=== PATIENT | male | born 1940 | race Caucasian/White ===

== ENCOUNTER 2017-05-21 17:03 | Inpatient (IN) ==
[2017-05-21] MEDS ORDERED: NS 1,000 ML IV ONE ×2 (17:12→23:19)
[2017-05-21] MEDS ORDERED: DIPHTHERIA/TETANUS ADULT IM ONE (17:23)
[2017-05-21] MEDS ORDERED: MORPHINE IV ONE (17:24)
[2017-05-21] MEDS ORDERED: ZOFRAN IV ONE (17:24)
--- NOTE | 2017-05-21 18:01 | Diag Imaging Result Doc PS360 ---
EXAM: HIP 1 VIEW LEFT - 05/21/2017 HISTORY: fall TECHNIQUE: AP left hip one view COMPARISON: 10/22/2016 FINDINGS: There is a total hip prosthesis. The femoral component of the prosthesis is superior laterally dislocated from the acetabular component. There is no fracture identified. IMPRESSION: Superior lateral dislocation of femoral component of left total hip prosthesis from the acetabular component. Electronically signed by Sekou Chavez 05/21/2017 5:59 PM
--- NOTE | 2017-05-21 18:04 | Diag Imaging Result Doc PS360 ---
EXAM: KNEE 3 VIEWS RIGHT - 05/21/2017 HISTORY: fall pain right knee TECHNIQUE: Right knee three views COMPARISON: None. FINDINGS: There are moderate osteoarthritic changes. There is no fracture or dislocation identified. There is apparent thickening of the suprapatellar bursa suggestive of joint effusion. There are extensive atherosclerotic calcifications noted. IMPRESSION: Moderate osteoarthritic changes. Apparent joint effusion. No evidence of fracture or dislocation. Extensive atherosclerotic calcifications noted. Electronically signed by Sekou Chavez 05/21/2017 6:01 PM
--- NOTE | 2017-05-21 18:10 | PROVIDER DOCUMENTATION ---
This chart was entered by Kerry Hoover Scribe, acting as scribe for Vandana Meadows MD. HPI-Musculoskeletal Pain/Inj <Arthur Duffy - Last Filed: 06/09/17 19:01> - GENERAL Source: patient, EMS - HX OF PRESENT ILLNESS-MUSKULOSKELTAL Quality of Pain: reports: aching, cramping Severity in ED: severe Onset/Duration: other (AROUND [id number] THIS AM) Timing: still present Modifying Factors: improves with: immobilization, movement Any recent injury?: Yes (FALL) Locality of Occurance: Home Similar Symptoms Previously?: Yes (HIP DISLOCATION IN THE PAST) Recently seen or treated by another doctor?: No - FALL INJURY Location of Pain/Injury: reports: head, face, chest, upper extremity, pelvis ( LEFT SIDE) Pain Radiation: reports: no radiation Reason for Fall: reports: other (FELT HIP POP OUT AND FELL) Symptoms prior to fall:: reports: none Loss of Consciousness: no loss of consciousness Injury Associated Symptoms: reports: arm pain (RIGHT), chest pain (RIGHT), joint pain (LEFT HIP, RIGHT KNEE), snap/crack/pop sensation, unable to bear weight. denies: back/neck pain, diaphoresis - TRUNK INJURY Location of Injury(s)/Pain: reports: chest, ribs (RIGHT SIDE) Context / Method of Injury: reports: fall, recent trauma history Associated Symptoms: reports: chest pain. denies: shortness of breath, pain with breathing - HIP/PELVIS PAIN/INJURY Hip Pain Location: reports: hip (L) Pain Radiation: reports: no radiation Context / Method of Injury: reports: fall Associated Symptoms: reports: sensory/motor loss - LOWER EXTREMITY PAIN/INJURY Lower Extremities Pain: hip: left, knee: right Context / Method of Injury: reports: fell Associated Symptoms: reports: loss of bowel control, sensory/motor loss - UPPER EXTREMITY PAIN/INJURY Extremities Pain Location: shoulder: right, forearm: right, wrist: right Context / Method of Injury: reports: fell Associated Symptoms: reports: muscle spasms <Vandana Meadows - Last Filed: 06/11/17 10:49> - GENERAL Chief Complaint: Fall Stated Complaint: fall Time Seen by Provider: 05/21/17 17:09 - HX OF PRESENT ILLNESS-MUSKULOSKELTAL Nature of Presenting Problem: PT IS A 76YOM PRESENTING TO THE ED C/O FALL. PT ARRIVES WITH EMS AFTER FAMILY CAME TO VISIT AND WAS UNABLE TO GET IN INITIALLY. FAMILY BROKE IN AND FOUND PT LAYING ION FLOOR ON HIS RIGHT SIDE. ACCORDING TO PT HE GOT UP TO USE RESTROOM AROUND [id number] THIS AM AND FELT HIS LEFT HIP POP OUT AND HE FELL LANDING AND APPARENTLY NOT ABLE TO MOVE OFF RIGHT SIDE. PT DENIES LOC BUT HE EDEMA, ECHYMOSIS, ABRASION TO THE RIGHT SIDE OF HIS HEAD AND FACE, HE HAS SOME EDEMA WITH A SMALL SUBCONJUNCTIVAL HEMORRHAGE ON HIS RIGHT EYE, RIGHT ANTERIOR CHEST JUST ABOVE HIS NIPPLE HE HAS A LARGE SKIN TEAR WITH ECCHYMOSIS UNDER LEFT BREAST AND IN RIGHT AUXILIARY AREA, PT HAS SWELLING ECCHYMOSIS AND SKIN BREAKDOWN FROM MID FOREARM ON THE RIGHT SIDE, HE HAS A SMALL SKIN TEAR ON LATERAL RIGHT KNEE WELL. PTS LEFT HIP IS INTERNALLY ROTATED AND MILDLY SHORTENED. PT HAS DRY STOOL FROM NIPPLE LINE DOWN. PT REFUSED PAIN MEDICATION AT THIS TIME EVEN AFTER BEING NOTIFIED OF US HAVING TO MOVE HIM SEVERAL TIMES. PT IS HYPOTENSIVE AND TACHYCARDIA AT TIME OF EVALUATION, PT DENIES ANY SOB OR OTHER COMPLAINTS AT THIS TIME (Kerry Hoover) PT IS A 76YOM PRESENTING TO THE ED C/O FALL. PT ARRIVES WITH EMS AFTER FAMILY CAME TO VISIT AND WAS UNABLE TO GET IN INITIALLY. FAMILY BROKE IN AND FOUND PT LAYING ION FLOOR ON HIS RIGHT SIDE. ACCORDING TO PT HE GOT UP TO USE RESTROOM AROUND [id number] THIS AM AND FELT HIS LEFT HIP POP OUT AND HE FELL LANDING AND APPARENTLY NOT ABLE TO MOVE OFF RIGHT SIDE. PT DENIES LOC BUT HE EDEMA, ECHYMOSIS, ABRASION TO THE RIGHT SIDE OF HIS HEAD AND FACE, HE HAS SOME EDEMA WITH A SMALL SUBCONJUNCTIVAL HEMORRHAGE ON HIS RIGHT EYE, RIGHT ANTERIOR CHEST JUST ABOVE HIS NIPPLE HE HAS A LARGE SKIN TEAR WITH ECCHYMOSIS UNDER LEFT BREAST AND IN RIGHT AUXILIARY AREA, PT HAS SWELLING ECCHYMOSIS AND SKIN BREAKDOWN FROM MID FOREARM ON THE RIGHT SIDE, HE HAS A SMALL SKIN TEAR ON LATERAL RIGHT KNEE WELL. PTS LEFT HIP IS INTERNALLY ROTATED AND MILDLY SHORTENED. PT HAS DRY STOOL FROM NIPPLE LINE DOWN. PT REFUSED PAIN MEDICATION AT THIS TIME EVEN AFTER BEING NOTIFIED OF US HAVING TO MOVE HIM SEVERAL TIMES. PT IS HYPOTENSIVE AND TACHYCARDIA AT TIME OF EVALUATION, PT DENIES ANY SOB OR OTHER COMPLAINTS AT THIS TIME (Vandana Meadows) Review of Systems - Adult - REVIEW OF SYSTEMS - ADULT Constitutional: reports: no symptoms reported Eyes: reports: no symptoms reported Ears, Nose, Mouth & Throat: reports: no symptoms reported Cardiovascular: reports: no symptoms reported Respiratory: reports: no symptoms reported Gastrointestinal: reports: no symptoms reported Genitourinary: reports: no symptoms reported Musculoskeletal: reports: see HPI, joint pain (LEFT HIP, RIGHT CHEST, RIBS, MID RIGHT FOREARM WTRIST AND HAND, RIGHT KNEE), joint swelling, muscle aches, muscle weakness. denies: bone pain, back pain, neck pain Integumentary: reports: no symptoms reported Neurological: reports: no symptoms reported Psychiatric: reports: no symptoms reported Endocrine: reports: no symptoms reported Hematologic/Lymphatic: reports: no symptoms reported Allergic/Immunologic: reports: no symptoms reported All Other Systems: Reviewed and Negative <Vandana Meadows - Last Filed: 06/11/17 10:49> Past History - Adult - PAST MEDICAL HISTORY-ADULT Review of Records: reports: Old Records Reviewed, Nursing Assessment Review, Medications Reviewed, Social history reviewed & non-contributory. Major Childhood Illnesses: reports: denies history Cardiovascular: reports: HTN Respiratory: reports: denies history Gastrointestinal: reports: denies history Obstetrical/Gynecological: reports: denies history Genitourinary: reports: denies history Musculoskeletal: reports: denies history Neurological: reports: CVA Endocrine/Immune: reports: denies history Other Conditions: reports: denies history - PRIOR SURGERIES/PROCEDURES Surgical/Procedure History: reports: cholecystectomy, other (total hip replacement) - IMMUNIZATION STATUS Childhood Immunizations: See Nurse Assessment Flu Vaccine: See Nurse Assessment - FAMILY HISTORY Family History: reviewed, not pertinent - SOCIAL HISTORY Smoking: quit greater than 1 year Substance Use: none/never, alcohol Alcohol Use Frequency: 3-4 times a week Number of drinks per typical drinking period:: 5-10 drinks Living Situation: alone <Vandana Meadows - Last Filed: 06/11/17 10:49> Physical Exam-Injury Related - Physical Exam-Injury Related Initial Vital Signs Reviewed: Yes General Appearance: alert, severe distress, anxious. negative: appears well Eyes: PERRL/EOMI, pink conjunctivae, subconjunctival hemorrhage (RIGHT EYE) Head, Ears, Nose, Mouth & Throat: normocephalic/atraumatic, moist mucous membranes, normal ENT inspection, TMs normal, pharynx normal Neck: non-tender, full range of motion, supple, normal inspection Respiratory: chest non-tender, lungs clear, normal breath sounds, no pleuratic chest pain, no respiratory distress, no accessory muscle use, increased rate Cardiovascular: normal peripheral pulses, no gallop, no JVD, no murmur, tachycardia, other (RIGHT LOWER EXT EDEMA 2+ EDEMA). negative: regular rate, rhythm, no edema Abdominal Exam: normal bowel sounds, non tender, soft, no organomegaly, no pulsatile mass, other (MULTIPLE WELL HEALED SURGICAL SCARS FROM PREVIOUS SURGERIES) Back Exam: negative: normal inspection, no CVA tenderness, no vertebral tenderness Extremity: other (LEFT LE SHORTENED AND INTERNALLY ROTATED). negative: normal range of motion, non-tender, normal gait, normal inspection, no pedal edema Integumentary: warm/dry, other (MULITPLE AREAS OF TISSUE BREAKDOWN, UPPER AND LOWER EXT ON RIGHT SIDE AND RIGHT CHEST) Neurologic: grossly normal Psych/Mental Status: normal mood/affect, normal thought content, normal thought process, oriented x 3 - Glascow Coma Score Best Eye Response ([place]): (4) open spontaneously Best Verbal Response ([place]): (5) oriented Best Motor Response ([place]): (6) obeys commands <Vandana Meadows - Last Filed: 06/11/17 10:49> Progress - PLAN OF CARE/RESULTS Result Diagrams: 06/07/17 04:00 06/07/17 04:00 - XRAY 1 XRAY Study: Hip Impression: Abnormal, See EMR Report (Hip dislocation) <Arthur Duffy - Last Filed: 06/09/17 19:01> - PLAN OF CARE/RESULTS Result Diagrams: 06/07/17 04:00 06/07/17 04:00 - CHANGE OF SHIFT REPORT (ED Provider) Report Given and Care Transferred to:: DR DUFFY Time of Transfer: 18:09 (DR MEADOWS [facility]) Items Pending: Labs, XRAY Results, CT/MRI Results, Pain Control <Vandana Meadows - Last Filed: 06/11/17 10:49> - PLAN OF CARE/RESULTS Progress/Plan/Lab Results: Orders Category Date Time Status Admit - [facility] - [facility] Routine AdmDCTranf 05/21/17 23:19 Ordered Activity - Strict Bedrest ORDERED Care 05/21/17 23:19 Active Apply C-Collar DIRECTED Care 05/21/17 20:13 Completed Apply Mechanical Device [QM] ORDERED Care 05/21/17 23:19 Completed Borges's Traction Placement ONCE Care 05/21/17 20:09 Completed IV Insertion ORDERED Care 05/21/17 17:12 Completed Intake and Output-Strict ORDERED Care 05/21/17 23:19 Active Misc. NRSG Communication Order DIRECTED Care 05/21/17 23:19 Completed Nursing- MD Consult Request ROUTINE Care 05/21/17 23:19 Completed Z-Document. for Tele Applied ORDERED Care 05/21/17 23:19 Completed Physician/Provider Consults Routine Cons 05/21/17 23:19 Ordered Heart Healthy Diet Diet 05/21/17 21:44 Completed NPO Diet 05/22/17 00:01 Completed HEAD/C-SPINE W/O CONTRAST [CT] Stat Exams 05/21/17 17:12 Completed HIP 1 VIEW LEFT [RAD] Stat Exams 05/21/17 17:41 Completed KNEE 3 VIEWS RIGHT [RAD] Stat Exams 05/21/17 17:22 Completed THORAX/ABDOMEN/PELVIS [CT] Stat Exams 05/21/17 17:12 Completed CBC WITH DIFF [HEME] Stat Lab 05/21/17 18:38 Completed CK PROFILE [SP CHEM] Q8H Lab 05/22/17 06:45 Completed CK PROFILE [SP CHEM] Q8H Lab 05/22/17 16:58 Completed CK TOTAL [CHEM] Stat Lab 05/21/17 18:38 Completed COMPREHENSIVE METABOLIC PANEL [CHEM] Stat Lab 05/21/17 18:38 Completed ETOH [ALCOHOL BLOOD] Stat Lab 05/21/17 18:38 Completed FOLATE Stat Lab 05/21/17 18:38 Completed I-STAT IONIZED CALCIUM [RESP] Routine Lab 05/21/17 21:25 Completed MAGNESIUM [CHEM] Stat Lab 05/21/17 18:38 Completed PHOSPHORUS [CHEM] Stat Lab 05/21/17 18:38 Completed POTASSIUM [CHEM] Timed Lab 05/22/17 00:11 Completed TROPONIN T Q8H Lab 05/22/17 06:45 Completed TROPONIN T Q8H Lab 05/22/17 16:58 Completed TROPONIN T Stat Lab 05/21/17 18:38 Completed VITAMIN B1 [AMADOR] Stat Lab 05/21/17 00:11 Completed VITAMIN B12 Stat Lab 05/21/17 18:38 Completed 0.9% Sodium Chloride Inj [Ns] 1,000 ml Med 05/21/17 23:19 Discontinued IV 70 mls/hr 0.9% Sodium Chloride Inj [Ns] 1,000 ml Med 05/21/17 17:12 Discontinued IV 999 mls/hr Acetaminophen [Tylenol] Med 05/21/17 23:19 Discontinued 650 mg PO Q6H PRN PRN Albuterol 2.5MG/Ipratrop 0.5MG [Duoneb (A & A)] Med 05/21/17 23:19 Discontinued 3 ml INH Q2H PRN PRN Calcium Gluconate 2 gm Med 05/21/17 23:19 Discontinued 0.9% Sodium Chloride Inj [Ns] 100 ml IV NOW Diphtheria/Tetanus Adult Med 05/21/17 17:23 Discontinued 0.5 ml IM .ONCE ONE Folic Acid 1 mg Med 05/21/17 23:19 Discontinued 0.9% Sodium Chloride Inj [Ns] 50 ml IV NOW Lorazepam [Ativan] Med 05/21/17 23:19 Discontinued 1 - 2 mg IV Q2-4H PRN PRN Methyl-B12/l-Mefolate/B6 Phos [Metanx] Med 05/22/17 09:00 Discontinued 1 each PO DAILY Methyl-B12/l-Mefolate/B6 Phos [Metanx] Med 05/21/17 23:19 Discontinued 1 each PO NOW ONE Morphine Med 05/21/17 23:19 Discontinued 2 mg IV Q3H PRN PRN Morphine Med 05/21/17 17:24 Discontinued 4 mg IV NOW ONE Naph,Mb-Db/K pH,Mbdb [Neutra-Phos] Med 05/21/17 23:19 Discontinued 1 each PO NOW ONE Ns + KCl 40 Meq 1,000 ml Med 05/21/17 20:05 Discontinued IV 250 mls/hr Omeprazole [Prilosec] Med 05/22/17 07:00 Discontinued 40 mg PO DAILY@0700 Ondansetron [Zofran] Med 05/21/17 17:24 Discontinued 4 mg IV NOW ONE Ondansetron [Zofran] Med 05/21/17 23:19 Discontinued 4 mg IV Q4H PRN PRN Phenobarbital Med 05/21/17 23:19 Discontinued 130 mg IV Q4H PRN PRN Potassium Chloride E.r. [Klor-Con] Med 05/21/17 19:58 Discontinued 60 meq PO NOW ONE Thiamine 100 mg Med 05/21/17 21:28 Discontinued 0.9% Sodium Chloride Inj [Ns] 50 ml IV NOW Aerosol Treatments Routine Oth 05/21/17 23:19 Completed Telemetry [OM.EQ] Routine Oth 05/21/17 23:19 Active EKG [EKG] Routine Ther 05/22/17 08:00 Completed EKG [EKG] Stat Ther 05/21/17 19:50 Draft Transfer/Admit Order [TRANSFER] Routine Transfer 05/21/17 20:26 Completed Departure - Departure Date of Disposition Decision: 05/21/17 Time of Disposition Decision: 22:00 Certified Medical Emergency: Emergent - Critical Care Note This patient required my direct & personal management of CC.: No <Arthur Duffy - Last Filed: 06/09/17 19:01> - Departure Date of Disposition Decision: 05/21/17 Time of Disposition Decision: 22:01 Certified Medical Emergency: Emergent - Critical Care Note This patient required my direct & personal management of CC.: Yes Total Time (mins): 35 Critical Care Statement: This patient required my direct personal management to treat or rule out processes, the absence of which, could potentiallly result in sudden, clinically significant life or limb threatening deterioration. <Vandana Meadows - Last Filed: 06/11/17 10:49> - Departure DIAGNOSIS: Hip dislocation, left Qualifiers: Encounter type: initial encounter Qualified Code(s): S73.005A - Unspecified dislocation of left hip, initial encounter Disposition: ADMITTED INPATIENT 09 Condition: This chart was documented by the indicated scribe, (Kerry Hoover Scribe) and accurately reflects the services I performed and decisions made by me, Vandana Meadows MD, as attested by the provider's signature.
[2017-05-21 18:52] LABS: HEMATOCRIT 25.4 % (42.0-52.0); HEMOGLOBIN 8.4 g/dL (14.0-18.0); IMM GRAN# 0.02 X1000 (0.0-0.04); IMM GRAN% 0.2 % (0.0-0.5); LYMPH# 0.12 X1000 (1.2-3.4); LYMPH% 1.5 % (20.5-51.1); MANUAL DIFF NEEDED? YES; MCH 29.7 PG (27-31); MCHC 33.1 g/dL (33-37); MCV 89.8 FL (81-99); MONO# 0.41 X1000 (0.11-0.59); MONO% 5.1 % (1.7-9.3); MPV 9.8 FL (7.4-10.4); NEUT% 93.2 % (42.2-75.2); PLT 90 X1000 (130-400); RBC 2.83 XMIL (4.7-6.1)
[2017-05-21 18:59] LABS: LYMPHS 2 % (21-51)
[2017-05-21 19:26] LABS: AGAP 11; ALBUMIN 1.9 g/dL (3.5-5.0); ALKALINE PHOSPHATASE 31 U/L (32-122); BUN 12 mg/dL (8-22); CHLORIDE 109 mmol/L (98-107); COSMO 274; GOT 82 U/L (10-34); GPT 24 U/L (10-44); SODIUM 138 mmol/L (136-145); TCO2 18 mmol/L (25-35); TOTAL BILIRUBIN 0.93 mg/dL (0.20-1.00); TOTAL PROTEIN 4.3 g/dL (6.3-8.3)
[2017-05-21 19:48] LABS: CALCIUM 5.3 mg/dL (8.8-10.2); POTASSIUM 2.1 mmol/L (3.5-5.1)
[2017-05-21] MEDS ORDERED: KLOR-CON PO ONE (19:58)
[2017-05-21] MEDS ORDERED: NS + KCL 40 MEQ 1,000 ML IV ONE (20:05)
[2017-05-21 20:49] LABS: MAGNESIUM 1.2 mg/dL (1.5-2.7)
--- NOTE | 2017-05-21 21:14 | Diag Imaging Result Doc PS360 ---
EXAM: HEAD/C-SPINE W/O CONTRAST - 05/21/2017 HISTORY: fall 14 hours TECHNIQUE: Dose reduction protocol COMPARISON: None. FINDINGS: CT head: There is some generalized atrophic changes. There is encephalomalacia at the right frontal lobe and at the right temporal occipital junction, compatible with old infarcts. There is a chronic appearing lacunar infarct on the left extends from the periventricular region to the anterior basal ganglia. There is no acute-appearing infarct is identified, but acute infarcts may not be immediately visible. There is no evidence of intracranial hemorrhage, mass effect, or midline shift. There is mild subcutaneous soft tissue swelling at the right anterior scalp. There is no skull fracture. CT cervical spine: There are severe degenerative changes at atlantoaxial articulation. There is severe multilevel degenerative disc and degenerative facet disease. There is associated moderate degenerative spinal stenosis at C4-5 and C5-6, there is mild degenerative spinal stenosis at C6-7. There is 2.4 mm anterolisthesis at C2-C3 which likely relates to the degenerative disease. This combines with central disc protrusion to produce mild to moderate spinal stenosis at C2-3. There is no other subluxation identified. There is no fracture identified. There is no precervical soft tissue swelling. IMPRESSION: CT head: Subcutaneous soft tissue swelling at right anterior scalp. No evidence of intracranial injury. Chronic appearing ischemic changes, with apparent old infarcts at the right frontal lobe and right temporal occipital junction. CT cervical spine: Severe multilevel cervical spine degenerative disease. Associated multilevel mild to moderate spinal stenosis. Associated 2.4 mm anterolisthesis at C2-3. No evidence of cervical spine fracture. Electronically signed by Sekou Chavez 05/21/2017 9:11 PM
[2017-05-21] MEDS ORDERED: THIAMINE 100 MG in NS 50 ML IV ONE (21:28)
--- NOTE | 2017-05-21 21:34 | Diag Imaging Result Doc PS360 ---
EXAM: THORAX/ABDOMEN/PELVIS - 05/21/2017 HISTORY: fall 14 hours on floor abrasion right chest TECHNIQUE: With intravenous contrast. Dose reduction protocol. COMPARISON: None. FINDINGS: There are some smooth deformities of bilateral ribs which are compatible with old fracture deformities. There is no discrete acute rib fracture identified. There are COPD/emphysematous changes. There is a medium right pleural effusion. The pleural fluid has somewhat lobulated inner margins and may be acute, subacute or possibly chronic. There are some ill-defined atelectasis and/or scarring in the right lung near the pleural fluid. The left lung appears grossly clear. There is no pneumothorax identified. There is no mediastinal hematoma or pericardial fluid identified. There are some retained fluid in the esophagus and stomach. There are no substantial abnormalities of the liver, spleen, adrenal glands, or pancreas identified. The gallbladder surgically absent. There are small bilateral renal cysts. There is no evidence of renal injury. There is no hydronephrosis. There is a 3.8 x 3.7 cm infrarenal abdominal aortic aneurysm. There is mural thrombus within the aneurysm. There is a possible ulceration within the mural thrombus at the left anterior aspect of the aneurysm. There is no evidence of aneurysm leakage or rupture. There are extensive atherosclerotic calcifications noted. There is no evidence of bowel obstruction. There is no substantial bowel wall thickening identified. There is uncomplicated colonic diverticulosis. There is no free air or abscess identified. There is no peritoneal or retroperitoneal hematoma identified. There is no substantial free fluid identified. There is dislocated left hip prosthesis as seen on earlier left hip radiograph. IMPRESSION: Medium right pleural effusion, which may be acute, subacute, or chronic. Emphysematous changes. Ill-defined atelectasis and/or scarring in right lung near the pleural fluid. Some retained fluid in the esophagus and stomach. No other discrete injury to the thorax. 3.8 x 3.7 cm infrarenal abdominal aortic aneurysm. Mural thrombus in the aneurysm, possible ulceration extending into the mural thrombus at the left anterior aspect of the aneurysm. No evidence of aneurysm leakage or rupture. Status post cholecystectomy. Uncomplicated colonic diverticulosis. No evidence of injury to the abdomen or pelvis. There is dislocated left hip prosthesis is noted on earlier left hip radiograph. Electronically signed by Sekou Chavez 05/21/2017 9:32 PM
[2017-05-21] MEDS ORDERED: FOLIC ACID 1 MG in NS 50 ML IV ONE (23:19)
[2017-05-21] MEDS ORDERED: TYLENOL PO PRN (23:19)
[2017-05-21] MEDS ORDERED: ATIVAN IV PRN (23:19)
[2017-05-21] MEDS ORDERED: PHENOBARBITAL IV PRN (23:19)
[2017-05-21] MEDS ORDERED: DUONEB (A & A) INH PRN (23:19)
[2017-05-21] MEDS ORDERED: CALCIUM GLUCONATE 2 GM in NS 100 ML IV ONE (23:19)
[2017-05-21] MEDS ORDERED: METANX PO ONE (23:19)
[2017-05-21] MEDS ORDERED: ZOFRAN IV PRN (23:19)
[2017-05-21] MEDS ORDERED: NEUTRA-PHOS PO ONE (23:19)
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
[2017-05-22 01:56] LABS: CK INDEX 1.5 (0.0-2.5); CK PROFILE 2909 U/L (24-204); CK-MB 43.15 ng/mL (0.0-5.0); HDL 37 mg/dL (35-55); LDL 34 mg/dL; TRIGLYCERIDES 107 mg/dL (39-160); VLDL 21 mg/dL
[2017-05-22 02:07] LABS: INR 1.18; PROTIME 12.5 Seconds (9.2-11.7); PTT 31.7 Seconds (22.0-36.0)
[2017-05-22 04:06] LABS: URINE CULTURE NEEDED? NO; URINE MICRO REVIEW NEEDED? NO; URINE SOURCE CATH
[2017-05-22 04:08] LABS: BILIRUBIN URINE NEGATIVE (NEGATIVE); BLOOD URINE MODERATE (NEGATIVE); COLOR YELLOW; GLUCOSE URINE NEGATIVE (NEGATIVE); LEUKOCYTES URINE NEGATIVE (NEGATIVE); NITRITE URINE NEGATIVE (NEGATIVE); PROTEIN URINE 50 mg/dL (NEGATIVE); TURBIDITY URINE CLEAR (CLEAR); UROBILINOGEN URINE NORMAL (NORMAL)
[2017-05-22 04:09] LABS: UR EPITHELIAL CELLS <10 /HPF (<10); URINE BACTERIA NEGATIVE /HPF; URINE RBC <10 /HPF (<10); URINE WBC <10 /HPF (<10)
[2017-05-22 04:40] LABS: SP GRAVITY URINE > 1.030
[2017-05-22] MEDS: PRILOSEC PO SCH (06:12)
[2017-05-22 07:01] LABS: BASO% 0.1 % (0.0-0.8); HEMATOCRIT 34.2 % (42.0-52.0); HEMOGLOBIN 11.4 g/dL (14.0-18.0); IMM GRAN# 0.02 X1000 (0.0-0.04); IMM GRAN% 0.2 % (0.0-0.5); LYMPH# 0.35 X1000 (1.2-3.4); LYMPH% 2.9 % (20.5-51.1); MANUAL DIFF NEEDED? YES; MCH 30.2 PG (27-31); MCHC 33.3 g/dL (33-37); MCV 90.7 FL (81-99); MONO# 0.88 X1000 (0.11-0.59); MONO% 7.3 % (1.7-9.3); MPV 9.6 FL (7.4-10.4); NEUT% 89.5 % (42.2-75.2); PLT 132 X1000 (130-400); RBC 3.77 XMIL (4.7-6.1)
[2017-05-22 07:19] LABS: BANDS 6 % (0-1); LYMPHS 2 % (21-51); MONO 6 % (1-9)
[2017-05-22 07:29] LABS: AGAP 11; ALBUMIN 2.7 g/dL (3.5-5.0); ALKALINE PHOSPHATASE 41 U/L (32-122); BUN 22 mg/dL (8-22); CALCIUM 8.8 mg/dL (8.8-10.2); CHLORIDE 99 mmol/L (98-107); COSMO 269; GOT 103 U/L (10-34); GPT 35 U/L (10-44); IRON SATURATION 12 %; MAGNESIUM 2.2 mg/dL (1.5-2.7); POTASSIUM 5.1 mmol/L (3.5-5.1); SODIUM 133 mmol/L (136-145); TCO2 23 mmol/L (25-35); TIBC 204 ug/dL; TOTAL BILIRUBIN 0.92 mg/dL (0.20-1.00); TOTAL IRON 25 ug/dL (53-167); UNBOUND IRON 179 ug/dL (112-346)
[2017-05-22 07:44] LABS: CK INDEX 1.8 (0.0-2.5); CK-MB 29.91 ng/mL (0.0-5.0)
[2017-05-22] MEDS: MORPHINE IV PRN ×2 (07:48→10:45)
[2017-05-22] MEDS ORDERED: LOPRESSOR IV ONE (09:06)
[2017-05-22] MEDS: MYCOSTATIN POWDER TOP SCH (09:41)
[2017-05-22] MEDS: METANX PO SCH (09:43)
--- NOTE | 2017-05-22 12:29 | Diag Imaging Result Doc PS360 ---
EXAM: XRAY HIP UNILATERAL LT - 05/22/2017 HISTORY: dislocated l hip,re evaluate TECHNIQUE: Left hip two views COMPARISON: 05/21/2017 FINDINGS: There is a left total hip prosthesis again seen. There is superior lateral dislocation of the femoral component of the prosthesis relative to the acetabular component similar to the previous exam. There is no fracture identified. IMPRESSION: Superior lateral dislocation of femoral component of left total hip prosthesis similar to the previous exam. Electronically signed by Sekou Chavez 05/22/2017 12:27 PM
[2017-05-22] MEDS: LOPRESSOR PO SCH ×2 (13:52→21:32)
--- NOTE | 2017-05-22 15:24 | PROGRESS NOTE ---
DATE: 05/22/2017 SUBJECTIVE: The patient has no focal complaints. OBJECTIVE: Vital signs: Blood pressure 123/45, heart rate 67, respiratory rate 13, temperature 97.6 degrees, 100% on 4 L. Cardiovascular: Regular rate and rhythm. Pulmonary: Bilateral breath sounds. Clear to auscultation. GI: Soft, nontender, nondistended. Bowel sounds are positive. LABORATORY DATA: Sodium 133, BUN creatinine 22 and 1. Hematology: Hemoglobin and hematocrit are 11 and 34, white count, platelets of 132,000. Urine was unremarkable. PROBLEM LIST: 1. Left hip dislocation. Plan is for reduction today per Dr. Perez in the OR. 2. Congestive heart failure with elevated troponins. No chest pain. I think his EKGs were fairly unremarkable but he does have a distinct elevation in his troponin. However CK to MB fraction comparison is more consistent with rhabdomyolysis. Again echocardiogram has been obtained cardiology has evaluated the patient. I feel like this is not an ischemic event but related to rhabdomyolysis. Waiting other recommendations. 3. Anemia. We will continue to monitor. 4. Supraventricular tachycardia. He was on some Lopressor IV. He is not on anything for rate control. I am going to just leave him on some Lopressor p.o. and we will follow closely. We will follow up on his echo. 5. Disposition. Pending his clinical course. We will continue to follow. cc: Burak Gutierrez MD
[2017-05-22] MEDS ORDERED: DIPRIVAN 1% ONE (15:33)
--- NOTE | 2017-05-22 16:08 | CONSULTATION ---
DATE OF CONSULTATION: 05/22/2017 IMPRESSION: 1. Abnormal cardiac enzymes with significantly elevated CPK, normal CPK/MB index, and mild elevation in troponin. Clinical presentation of hip dislocation, fall and prolonged period of being down coupled with pattern of cardiac enzymes most consistent with skeletal muscle injury rather than cardiac event. 2. Transient atrial fibrillation with rapid ventricular rate. This spontaneously converted back to sinus rhythm after intravenous metoprolol. The patient has history of palpitations which raises concern that he has had paroxysms of atrial fibrillation in the past. That being a possibility, his CHADS2-VASc 2 score is significantly elevated raising concern regarding thromboembolic/stroke risk. 3. Hypertension. 4. Regular daily alcohol use of 6-8 beers daily. No signs of withdrawal. 5. Hyperlipidemia. 6. Chronic obstructive pulmonary disease. 7. Reported history of congestive heart failure. Echocardiography done today demonstrates normal left ventricular ejection fraction raising suspicion of possible cor pulmonale and/or diastolic left ventricular heart failure. Manifests no signs congestive heart failure presently. 8. Gastroesophageal reflux disease. 9. Previous left hip replacement for degenerative disease of the hip. RECOMMENDATIONS: 1. Optimal patient care would dictate relocating patient's hip without further delay. His perioperative cardiac risks related to this appears to be very acceptable. 2. Intravenous hydration to continue. 3. Metoprolol as needed if further atrial fibrillation. 4. Will give consideration to possible use of anticoagulation postoperatively. 5. Cessation of alcohol use discussed. HISTORY: This 76-year-old white male with past history of hypertension, palpitations, previous cerebrovascular accident, COPD, hyperlipidemia and regular daily alcohol use was admitted to emergency room after he was found down at home by family in the bathroom. He has history of left hip replacement and previously had to have left hip prosthesis relocated. He had gone to the bathroom and upon trying to get up from the toilet his left hip dislocated and he fell to the floor. He spent at least 12 hours on the floor. Family visiting from [place], [place] area happened to be in town for a and came by for a visit. The discovered him lying on the floor and brought him to the emergency room. He was found on the floor in a contorted position on his left side. There was no chest pain or syncope. Emergency room evaluation disclosed dislocated left hip prosthesis. He has been found on the floor in a contorted position on his right side. There was no syncope or chest pain. There were no associated palpitations. Emergency room evaluation disclosed dislocated left hip prosthesis. He demonstrated significantly elevated CPK, normal CPK index and mild elevation in troponin. Is admitted to the intensive care unit. While in intensive care unit he spontaneously converted to atrial fibrillation, rapid ventricular rate. He was given intravenous metoprolol and converted back to sinus rhythm thereafter. He is not aware of any previous cardiac problems beyond occasional palpitations. He has had no angina and has no history of coronary disease or previous myocardial infarction. PAST MEDICAL HISTORY: 1. COPD. 2. Hypertension. 3. Hyperlipidemia. 4. Prior cerebrovascular accident with left-sided weakness which improved. He still has some residual left lower facial weakness. 5. Gastroesophageal reflux and peptic ulcer disease. 6. Reported history of congestive heart failure. 7. Regular daily alcohol use 6-8 beers daily. PAST SURGICAL HISTORY: Includes left hip replacement for degenerative disease, left hip reduction, partial gastrectomy secondary to peptic ulcer disease, cholecystectomy, and right knee arthroscopic procedure. ALLERGIES: He has no known drug allergies MEDICATIONS: Prior to admission as listed. He has been on aspirin daily. SOCIAL HISTORY: He lives alone. He is recently a . He has a daughter that lives in [place] but works regularly. His sister lives in [facility]. He quit smoking several years ago. He drinks 6-8 beers daily. He previously smoked quite heavily 3 packs of cigarettes per day. FAMILY HISTORY: Negative for premature coronary disease. REVIEW OF SYSTEMS: Pulmonary: Noteworthy for chronic dyspnea. Gastrointestinal: Noteworthy for gastroesophageal reflux but otherwise negative. Constitutional: Negative. Remainder review of systems negative/noncontributory with 14 total systems reviewed. PHYSICAL EXAM: General: Reveals a overweight, older white male in no distress. Vital Signs: As recorded are stable. HEENT: Extraocular movements appear intact. Neck: Supple without jugular venous distention. No carotid bruits. Chest: Auscultation chest reveals diffusely diminished breath sounds. Cardiac Exam: Reveals a regular rate and rhythm without appreciable murmur or gallop. Abdomen: Soft, nontender. Bowel sounds are normal. Extremities: Without edema. Neurologic Exam: Reveals him to be alert, fully oriented. Speech is fluent. He moves all 4 extremities equally well. There was some weakness in his left lower face noted. Skin: Warm and dry. Psychiatric: Exam reveals mood to be appropriate. DIAGNOSTIC DATA: ECG demonstrates sinus rhythm, is within normal limits. Echocardiography demonstrates normal left ventricular ejection fraction without wall motion abnormality. cc: Hamilton Rodriguez MD
[2017-05-22] MEDS ORDERED: XYLOCAINE-MPF 2% ONE (16:37)
[2017-05-22 17:51] LABS: CK-MB 28.1 ng/mL (0.0-5.0)
[2017-05-22] MEDS ORDERED: NS 1,000 ML ONE (17:54)
[2017-05-22] MEDS: NS 1,000 ML IV SCH (18:03)
--- NOTE | 2017-05-22 20:56 | CONSULTATION ---
DATE OF CONSULTATION: 05/22/2017 CHIEF COMPLAINT: Left hip pain. HISTORY: The patient is a 76-year-old male who presented to the emergency room after he was found at home laying on the floor. He claims that he was going to the restroom and had intense amount of pain in his left hip. He claims his left hip popped out. At that time he fell to the ground and was unable to stand due to the amount of pain in his hip. He was found that afternoon and was taken to the emergency room for further analysis. Upon evaluation in the emergency room, it was noted that he was in SVT and was having some cardiac arrhythmias. However, these were corrected per Cardiology. He was transferred to the ICU and has been watched closely. Upon x-rays in the emergency room, it was noted that he had a left hip dislocation. He has a history of a dislocation back in October that was reduced by Dr. Cherry. Upon evaluation, he claims the pain in his left hip and unable to bear weight onto that hip. PAST MEDICAL HISTORY: Includes history of COPD due to significant smoking history, hypertension, congestive heart failure. PAST SURGICAL HISTORY: Left total hip arthroplasty per Dr. Pappas, also cholecystectomy. SOCIAL HISTORY: He did quit smoking 1 year ago but he claims that he was smoking 3 packs per day for a long period of time. He denies any alcohol or any illegal drug use. PHYSICAL EXAMINATION: General: He is alert and oriented in no acute distress. He is resting comfortably. HEENT: Pupils equal, round, reactive to light and accommodation. Extraocular movements are intact. No blood in the nares. Head is normocephalic. Neck: Trachea is midline. Supple. Cardiovascular: There is brisk capillary refill in the peripheral extremities. Lungs: Normal aeration is noted. He does show some slight wheezing. Neurologic: Cranial nerves II through XII are grossly intact. No focal deficits. Sensation is intact distally in all distal dermatomal patterns. Musculoskeletal: His left lower extremity is internally rotated and shortened suggestive of posterior hip dislocation. Gross motor and sensory intact in bilateral lower extremities. ASSESSMENT: 1. A 76-year-old male with a left hip dislocation status post total hip arthroplasty 8 years ago with recent history of hip dislocation in October. 2. History of COPD, congestive heart failure, and hypertension. X-rays of the left hip were reviewed. They do show a posterior hip dislocation. Components look to be well in place. No other acute fracture is noted. PLAN: I discussed with the daughter and the patient about the treatment options and I recommend a closed reduction of the left hip. Will not proceed towards opening at this time due to the extensive amount of surgery needed for this. We will continue to follow him after the reduction. Call if there are any questions or concerns. They all agree to proceed with this plan. cc: Shahbaz Perez MD
--- NOTE | 2017-05-22 21:04 | OPERATIVE NOTE ---
PROCEDURE DATE : 05/22/2017 PREOPERATIVE DIAGNOSES: 1. Left hip dislocation status post left total hip arthroplasty. 2. History of left hip prosthesis dislocation. POSTOPERATIVE DIAGNOSES: 1. Left hip dislocation status post left total hip arthroplasty. 2. History of left hip prosthesis dislocation. PROCEDURE: Closed reduction of the left hip with total hip arthroplasty components intact. SURGEON: Shahbaz Perez MD SENIOR CHEMICAL PROCESS ENGINEER: None. ANESTHESIA: MAC sedation was given to the patient until comfortable. Muscle relaxant was also given and LED was placed. SPECIMEN: None. HISTORY: The patient is a 76-year-old male who has a history of a hip dislocation back in October. He has now had a secondary hip dislocation after he was standing at home. I discussed the treatment options with the family and they agreed to proceed with the plan. COMPLICATIONS: None. DISPOSITION: The patient was sent to PACU in stable condition. PROCEDURE: The patient was taken back to the operative suite, placed in the supine position. Time-out was performed for closed reduction of the left hip which was confirmed by myself and all assistants. X-rays were taken to confirm that the hip was dislocated, followed by gentle traction. I then flexed the knee and also flexed the hip followed by abduction across the body. You could feel that the head of the hip was into the musculature. It was very difficult to reduce. I then was asked to give muscle relaxant. After muscle relaxant was given, then I sequentially reduced the hip using traction along with these other positions. The hip was placed and x-rays were taken to confirm positioning. Femoral x-rays were also taken to confirm there were no fractures. Abduction pillow was placed. He was transferred to the bed and to PACU in stable condition. He tolerated the procedure very well. There were no complications. cc: Shahbaz Perez MD
--- NOTE | 2017-05-22 21:30 | ECHO REPORT ---
ORDER DATE: 05/22/2017 MEASUREMENTS: 1. Left atrium 3.8, aortic root 3.7. Technically difficult study due to limited acoustic window quality. 2. Aortic valve is trileaflet and demonstrates mild sclerosis, but adequate aortic valve opening on 2-dimensional images. Peak gradient across the aortic valve is 11 mmHg. Mitral, tricuspid, and pulmonic valves are without evidence of structural abnormality with mild mitral regurgitation and mild tricuspid regurgitation. Estimated systolic PA pressure by Doppler is 35 mmHg. The aortic root is normal size. 3. Normal left ventricular dimensions suggested. Estimated left ventricular ejection fraction appears to be at least 60%. No regional wall motion abnormalities can be appreciated. Left atrium, right atrium, and right ventricle of normal size with preserved right ventricular systolic function. Grade 1 left ventricular diastolic dysfunction suggested. 4. There is no pericardial effusion. 5. Appearance of inferior vena cava suggests normal central venous pressure. CONCLUSIONS: 1. Technically difficult study. 2. Aortic valve sclerosis without stenosis. 3. Mild mitral regurgitation. 4. Mild tricuspid regurgitation with estimated systolic PA pressure of 35 mmHg. 5. Normal left ventricular systolic function without wall motion abnormality appreciated. 6. Grade 1 left ventricular diastolic dysfunction. cc: MD Alexys Rangel CRNP
[2017-05-22] MEDS: LOVENOX SUBQ SCH (21:33)
[2017-05-23] MEDS: MORPHINE IV PRN ×3 (04:00→23:18)
[2017-05-23] MEDS: LOPRESSOR PO SCH ×4 (04:29→21:22)
--- NOTE | 2017-05-23 05:59 | EKG Report ---
Test Performed on : 05/22/2017 06:41:17 AM Test Reason : CP Blood Pressure : / mmHG Vent. Rate : 084 BPM Atrial Rate : 084 BPM P-R Int : 172 ms QRS Dur : 084 ms QT Int : 380 ms P-R-T Axes : 069 032 014 degrees QTc Int : 449 ms Normal sinus rhythm. Normal ECG When compared with ECG of 21-MAY-2017 19:57, (Unconfirmed) No significant change was found Confirmed by Kassandra Florence MD ([id number]) on 05/23/2017 10:17:46 AM
--- NOTE | 2017-05-23 07:00 | EKG Report ---
Test Performed on : 05/21/2017 7:57:37 PM Test Reason : fall, elevated enzymes Blood Pressure : / mmHG Vent. Rate : 097 BPM Atrial Rate : 097 BPM P-R Int : 154 ms QRS Dur : 080 ms QT Int : 386 ms P-R-T Axes : 058 025 033 degrees QTc Int : 490 ms Normal sinus rhythm. Nonspecific ST abnormality Prolonged QT Abnormal ECG When compared with ECG of 21-MAY-2017 17:30, (Unconfirmed) No significant change was found Unconfirmed Result
--- NOTE | 2017-05-23 07:19 | EKG Report ---
Test Performed on : 05/21/2017 5:30:54 PM Test Reason : chest pain Blood Pressure : / mmHG Vent. Rate : 107 BPM Atrial Rate : 107 BPM P-R Int : 166 ms QRS Dur : 080 ms QT Int : 362 ms P-R-T Axes : 087 042 036 degrees QTc Int : 483 ms Sinus tachycardia. Nonspecific ST abnormality Abnormal ECG No previous ECGs available Unconfirmed Result
[2017-05-23] MEDS: PRILOSEC PO SCH (07:25)
[2017-05-23] MEDS: METANX PO SCH (08:32)
[2017-05-23] MEDS: MYCOSTATIN POWDER TOP SCH (09:03)
[2017-05-23] MEDS ORDERED: NS 1,000 ML ONE (09:06)
[2017-05-23] MEDS: NS 1,000 ML IV SCH (09:09)
[2017-05-23] MEDS ORDERED: VERSED IV ONE (09:45)
[2017-05-23] MEDS ORDERED: VERSED ONE (09:47)
[2017-05-23] MEDS ORDERED: TYLENOL PR PRN (09:57)
[2017-05-23] MEDS ORDERED: VANCOMYCIN IV PER PHARMACY MISC SCH (10:00)
--- NOTE | 2017-05-23 10:00 | EKG Report ---
Test Performed on : 05/22/2017 09:11:19 AM Test Reason : ICU 7. NOT ORDERED IN [place] Blood Pressure : / mmHG Vent. Rate : 086 BPM Atrial Rate : 086 BPM P-R Int : 182 ms QRS Dur : 082 ms QT Int : 372 ms P-R-T Axes : 075 040 048 degrees QTc Int : 445 ms Normal sinus rhythm. Nonspecific ST abnormality Abnormal ECG When compared with ECG of 22-MAY-2017 09:09, (Unconfirmed) No significant change was found Confirmed by Kassandra Florence MD ([id number]) on 05/23/2017 10:17:57 AM
--- NOTE | 2017-05-23 10:18 | EKG Report ---
Test Performed on : 05/22/2017 08:49:29 AM Test Reason : svt Blood Pressure : / mmHG Vent. Rate : 167 BPM Atrial Rate : 166 BPM P-R Int : 000 ms QRS Dur : 080 ms QT Int : 282 ms P-R-T Axes : 000 050 066 degrees QTc Int : [address] depression, consider subendocardial injury Abnormal ECG No previous ECGs available Confirmed by Kassandra Florence MD ([id number]) on 05/23/2017 10:17:49 AM
[2017-05-23] MEDS: SOLU-MEDROL IV SCH ×2 (10:23→17:07)
[2017-05-23] MEDS: ZOSYN 3.375 GM/NS 3.375 GM/50 ML IVPB IV SCH ×3 (10:24→21:15)
[2017-05-23] MEDS: LEVOPHED 8 MG in D5 1/2 NS 250 ML IV SCH ×3 (10:24→23:48)
[2017-05-23 10:32] LABS: ALBUMIN 2.9 g/dL (3.5-5.0); CALCIUM 9.2 mg/dL (8.8-10.2); POTASSIUM 5.5 mmol/L (3.5-5.1); TOTAL BILIRUBIN 0.45 mg/dL (0.20-1.00); TOTAL PROTEIN 6.5 g/dL (6.3-8.3)
[2017-05-23 10:44] LABS: ALLEN TEST YES; BLOOD TYPE ARTERIAL; DRAW SITE R RADIAL; METHB 0.7 % (0.0-1.5); O2(CT) 12.4 mL/dL (15.0-23.0); SAMPLE BLOOD; SAO2 86.2 % (95.0-100.0); SRATE 14 BPM; THB 10.5 g/dL (11.5-17.4); TVOL 500 mL
[2017-05-23 10:45] LABS: pH(98.6) 7.03 (7.35-7.45)
[2017-05-23 10:46] LABS: MODALITY VENTILATOR; PCO2(98.6) 90 mmHg (35-45); PO2(98.6) 44 mmHg (60-100)
--- NOTE | 2017-05-23 10:54 | Diag Imaging Result Doc PS360 ---
CHEST/ABD TUBE PLACEMENT - 05/23/2017 INDICATION: ET tube and OG tube placement TECHNIQUE: COMPARISON: CT from 05/21/2017 FINDINGS: There is a nasogastric tube in good position in the stomach. There is a small right pleural effusion. IMPRESSION: Nasogastric tube in good position in the stomach. Electronically signed by Parker Amador 05/23/2017 10:51 AM
--- NOTE | 2017-05-23 10:55 | Diag Imaging Result Doc PS360 ---
EXAM: CHEST-1 VIEW HISTORY: ET TUBE TECHNIQUE: AP portable semierect at 1045 COMMENT: There is an endotracheal tube with its tip at thoracic inlet. There is an NG tube which appears to pass off the lower edge of the film. There is COPD. The lung bases are opacified. There may be pleural fluid. IMPRESSION: Endotracheal tube at the thoracic inlet. Bibasal or pulmonary edema versus pneumonia with pleural effusions. Electronically signed by Tony Anne 05/23/2017 10:52 AM
[2017-05-23 11:06] LABS: CK-MB 16.94 ng/mL (0.0-5.0)
[2017-05-23 11:18] LABS: MAGNESIUM 2.8 mg/dL (1.5-2.7)
[2017-05-23 11:23] LABS: HEMATOCRIT 37.2 % (42.0-52.0); HEMOGLOBIN 11.2 g/dL (14.0-18.0); MCH 30.9 PG (27-31); MCHC 30.1 g/dL (33-37); MCV 102.5 FL (81-99); MPV 9.9 FL (7.4-10.4); RBC 3.63 XMIL (4.7-6.1)
[2017-05-23] MEDS: VANCOMYCIN 1.6 GM in NS 250 ML IV SCH (11:47)
[2017-05-23] MEDS: PEPCID IV SCH ×2 (12:08→23:51)
[2017-05-23] MEDS: D5 NS 1,000 ML IV SCH ×2 (12:36→14:09)
--- NOTE | 2017-05-23 12:36 | PROGRESS NOTE ---
DATE: 05/23/2017 SUBJECTIVE: Patient reported to have agitation last night requiring sedation possibly for alcohol withdrawal. He was reportedly till sedated this morning when he had acute respiratory failure requiring intubation and mechanical ventilation. Reportedly, he has had copious amount of yellow stuff suctioned from his lungs. OBJECTIVE: Vital Signs: Blood pressure 101/39. Heart rate 84 and regular. Oxygen saturation 91% on 100% oxygen. There is no significant jugular venous distention. Chest: Auscultation of chest reveals coarse crackles in the right chest 2/[address] Left chest is relatively clear. Cardiac: Reveals a regular rate and rhythm without appreciable murmur or gallop. Extremities: There is no evidence of edema. LABORATORY DATA: Includes a white blood cell count 22.5, hematocrit 37.2. CPK 42 (decreasing). Troponin T 0.495 (decreasing). IMPRESSION: 1. Respiratory failure. 2. Status post relocation of dislocated hip prosthesis. 3. Abnormal cardiac enzymes likely related to skeletal muscle injury. 4. Chronic obstructive pulmonary disease. 5. History of congestive heart failure with preserved left ventricular systolic function. Suspect combination of cor pulmonale and diastolic left heart failure. RECOMMENDATIONS: 1. Continue supportive care. 2. If further atrial fibrillation, consider initiation of intravenous amiodarone. cc: Hamilton Rodriguez MD
[2017-05-23 14:15] LABS: URINE SOURCE CATH
[2017-05-23 14:25] LABS: BILIRUBIN URINE SMALL (NEGATIVE); BLOOD URINE MODERATE (NEGATIVE); COLOR ORANGE; GLUCOSE URINE TRACE mg/dL (NEGATIVE); LEUKOCYTES URINE NEGATIVE (NEGATIVE); NITRITE URINE NEGATIVE (NEGATIVE); PH URINE 5.5; PROTEIN URINE 100 mg/dL (NEGATIVE); SP GRAVITY URINE 1.034; TURBIDITY URINE TURBID (CLEAR); URINE MICRO REVIEW NEEDED? YES; UROBILINOGEN URINE 4 mg/dL (NORMAL)
[2017-05-23 14:35] LABS: UR EPITHELIAL CELLS <10 /HPF (<10); URINE BACTERIA NEGATIVE /HPF; URINE RBC <10 /HPF (<10); URINE WBC TNTC /HPF (<10)
[2017-05-23 14:51] LABS: UR CREAT RANDOM 134.9 mg/dL (14-26); UR PROT RANDOM 240.1 mg/dL
[2017-05-23] MEDS: CLINIMIX E 4.25%-5% SOLUTION 1,000 ML IV SCH (15:00)
[2017-05-23] MEDS: DUONEB (A & A) INH SCH ×4 (15:32→23:05)
[2017-05-23 16:07] LABS: ALLEN TEST YES; BE -8.3 mmoll (-3.0-3.0); BLOOD TYPE ARTERIAL; DRAW SITE L RADIAL; O2(CT) 15.5 mL/dL (15.0-23.0); PCO2(98.6) 47 mmHg (35-45); PO2(98.6) 88 mmHg (60-100); SAMPLE BLOOD; SAO2 98.7 % (95.0-100.0); SRATE 24 BPM; THB 11.4 g/dL (11.5-17.4); TVOL 550 mL; pH(98.6) 7.22 (7.35-7.45)
[2017-05-23 16:08] LABS: MODALITY VENTILATOR
[2017-05-23 16:12] LABS: ALBUMIN 2.4 g/dL (3.5-5.0); CALCIUM 8.4 mg/dL (8.8-10.2); POTASSIUM 5.6 mmol/L (3.5-5.1)
[2017-05-23] MEDS: SANTYL OINT TOP SCH (16:25)
[2017-05-23] MEDS ORDERED: ALBUTEROL 0.5% INH CONC FOR HYPERKALEMIA INH ONE (16:31)
[2017-05-23] MEDS ORDERED: SODIUM BICARBONATE 8.4% IV PUSH ONE (16:32)
[2017-05-23] MEDS ORDERED: HUMULIN R IV ONE (16:32)
[2017-05-23] MEDS ORDERED: D50W SYRINGE IV ONE (16:32)
[2017-05-23] MEDS ORDERED: ALBUMIN 25% IV ONE (16:42)
--- NOTE | 2017-05-23 17:11 | CONSULTATION ---
DATE OF CONSULTATION: 05/23/2017 REQUESTING PHYSICIAN: Dr. Sullivan. REASON FOR CONSULTATION: Respiratory failure. HISTORY OF PRESENT ILLNESS: Mr. Escoto is a 76-year-old white male with severe COPD, dyspnea at less than 100 feet, status post left hip arthroplasty who required reduction of a dislocation of this hip in October. Patient was admitted to the hospital on 05/21/2017 after he fell in his bathroom. His left hip was again dislocated. He spent approximately 10-12 hours on the floor. He went to the operating room yesterday afternoon and had a closed reduction of the left total hip arthroplasty. The patient developed confusion early in the morning and began to pull off leads. He became progressively obtunded. Patient was electively intubated. An arterial blood gas performed after intubation revealed a pH of 7.03, pCO2 of 90, PO2 of 44. PAST MEDICAL HISTORY: 1. Severe COPD. The patient has dyspnea at less than 100 feet. Patient's daughter reports he has been instructed to use oxygen in the past but refuses. 2. 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 3. Hypertension. 4. Gastroesophageal reflux disease. 5. History of CVA. 6. History of heart failure, unknown type. 7. Peptic ulcer disease and partial gastrectomy. 8. Status post cholecystectomy. 9. Status post right knee arthroscopy. SOCIAL HISTORY: The patient lost his approximately 3 weeks ago. He has history of daily alcohol use. He had greater than 100 pack year history for tobacco but has not smoked for approximately 1 year. FAMILY HISTORY: Positive for heart disease, hypertension, diabetes mellitus, head and neck cancer and dyslipidemia. REVIEW OF SYSTEMS: Cannot be obtained. PHYSICAL EXAMINATION: General: Reveals a chronically ill-appearing white male on mechanical ventilation. He is currently on Levophed for hypotension. Vital signs: His oxygen saturation is 90% on 100% FiO2. BP 101/39, heart rate 84, respiration rate 24 after adjustments with ventilator. HEENT: Pupils are equal. Oropharynx evaluation is limited with endotracheal tube in place. Neck: Supple. Chest: Reveals decreased breath sounds right greater than left base. He has mild prolonged expiratory phase. He has diffuse bilateral rhonchi. Copious yellow secretions are being aspirated from the endotracheal tube. Cardiac Exam: Distant heart sounds. Normal S1, normal S2. Abdomen: Soft and without hepatosplenomegaly. Extremities: Reveal edema right greater than left hand. Extremities: Cold to the touch. LABORATORIES: Chest x-ray reveals effusion versus infiltrate right base. Possible infiltrate left base. White blood count 22,000, hemoglobin 11.2, platelet count 228,000. Chemistry. Sodium 139, potassium 5.5, chloride 105, bicarbonate 23, BUN 38, creatinine 1.4 , phosphorus 8.1, magnesium 2.8, albumin 2.9, proBNP 11,133. Arterial blood gas on mechanical ventilation pH 7.09, pCO2 of 90, PO2 of 44. IMPRESSION: 76-year-old with chronic obstructive pulmonary disease, daily sputum production, history of alcohol use/abuse who presented to the hospital after being found on the floor for several hours. The patient had a dislocated hip which has been reduced. The patient developed progressive respiratory decline and altered mental status. The patient now has probable acute on chronic hypoxemic respiratory failure, acute on chronic hypercapnic respiratory failure, hypotension, acute renal failure. He may have septic shock but he has had significant hemoconcentration with an increase in his hemoglobin level from 8 to 11. This may be volume related. He has daily sputum production. I suspect he has underlying bronchiectasis. It is not clear whether he is having exacerbation of bronchiectasis or a pneumonia. Gram- negative pneumonia is suspected given his long history of daily sputum production. RECOMMENDATIONS: 1. Continue full ventilatory support for acute on chronic hypercapnic and hypoxemic respiratory failure. 2. Additional volume resuscitation given evidence of hemoconcentration. 3. Blood cultures, urine culture and sputum cultures. 4. Levophed if needed for blood pressure support. 5. Antibiotics for gram negative pneumonia 6. Routine gastric acid suppression. 7. Additional recommendations pending hospital course. His prognosis is guarded. I discussed the patient with his daughter. cc: Donovan Vivar MD [facility]
--- NOTE | 2017-05-23 17:47 | PROGRESS NOTE ---
DATE: 05/23/2017 SUBJECTIVE: The patient was noted to be very agitated this morning around 3 o' clock in the morning and was subsequently given 2 mg of Ativan and 130 mg of phenobarbital. A few hours later, the patient was noted to be apneic and hypoxic. As a result, orders were given for the patient to be intubated and placed on the ventilator. The patient is currently sedated. OBJECTIVE: Vital Signs: Temperature 97.2 degrees, blood pressure 95/66, heart rate 92, respirations 24, O2 saturations 99% on the mechanical ventilator at 100%. General: This is a chronically ill-appearing, elderly male, lying in bed, in no acute distress. Head: Normocephalic, atraumatic. Heart: S1, S2 normal. Regular rate and rhythm. Lungs: Coarse breath sounds bilaterally. No crackles. No rales. Abdomen: Positive bowel sounds. Soft, nontender, nondistended. Extremities: Trace pedal edema. No cyanosis. No calf tenderness. Neurologic: The patient is currently sedated and on the ventilator. LABS: White blood cell count 22, hemoglobin 11, hematocrit 37, platelets 228, 000. ABG pH of 7.03, pCO2 of 90, pO2 of 44, bicarb of 18. O2 saturation 86%. Sodium 135, potassium 5.6, chloride 101, CO2 17, BUN 37, creatinine 1.5, glucose 287. Calcium 8.4, magnesium 2.8, phosphorus 5.6. AST 144, ALT 54, alkaline phosphatase 71, ammonia 81. CK 942. Troponin 0.49. Pro-B-type natriuretic peptide 11,133, albumin 2.4. ASSESSMENT AND PLAN: 1. Acute hypercapnic and hypoxemic respiratory failure. The patient is currently sedated and on the ventilator. Pulmonary has been consulted for vent management. Bronchodilator therapy has been started, as well as broad-spectrum antibiotics. Cultures of the sputum and blood have been ordered. 2. Suspected aspiration pneumonia. Blood and sputum cultures are currently pending. Continue with broad-spectrum antibiotic coverage. ID has been consulted. 3. Acute kidney injury. We will check urine electrolytes. The patient's urine output has decreased over the last 24 hours. If it continues to worsen, will consult the Counterintelligence Analyst. 4. Metabolic encephalopathy. The patient does have a history of alcohol abuse. We will continue to monitor the patient's mental status closely. At this time, the patient is sedated with propofol. 5. Hypotension. The patient is currently on a Levophed drip for blood pressure support. 6. Hyperkalemia. Will treat with the hyperkalemia protocol. 7. Rhabdomyolysis. Improved. 8. Volume overload. The patient's IV fluids have been discontinued. We will continue to monitor the patient's volume status closely. 9. Severe protein calorie malnutrition. The patient has been started on CliniMix. 10. Status post left total hip arthroplasty secondary to left hip dislocation. Management as per the orthopedic surgeon. 11. Gastrointestinal prophylaxis. Continue on Pepcid. 12. Deep vein thrombosis prophylaxis. Continue on Lovenox. cc: Karin Sullivan MD MTDD
[2017-05-23] MEDS: LOVENOX SUBQ SCH (21:15)
[2017-05-23] MEDS: DIPRIVAN 1% 1,000 MG/100 ML BOTTLE IV SCH (23:22)
[2017-05-23] MEDS ORDERED: LANOXIN IV ONE (23:37)
[2017-05-24] MEDS: ZOSYN 3.375 GM/NS 3.375 GM/50 ML IVPB IV SCH ×4 (03:14→21:28)
[2017-05-24] MEDS: CLINIMIX E 4.25%-5% SOLUTION 1,000 ML IV SCH ×2 (03:14→15:37)
[2017-05-24] MEDS: LOPRESSOR PO SCH ×4 (03:14→20:35)
[2017-05-24] MEDS: SOLU-MEDROL IV SCH ×3 (03:14→17:05)
[2017-05-24] MEDS: DUONEB (A & A) INH SCH ×6 (03:55→22:35)
[2017-05-24 04:45] LABS: BE -3.5 mmoll (-3.0-3.0); BLOOD TYPE ARTERIAL; METHB 1.3 % (0.0-1.5); O2(CT) 22.5 mL/dL (15.0-23.0); PCO2(98.6) 34 mmHg (35-45); PO2(98.6) 123 mmHg (60-100); SAMPLE BLOOD; SAO2 99.3 % (95.0-100.0); SRATE 24 BPM; THB 16.5 g/dL (11.5-17.4); TVOL 550 mL; pH(98.6) 7.39 (7.35-7.45)
[2017-05-24 04:47] LABS: MODALITY VENTILATOR
[2017-05-24] MEDS: DIPRIVAN 1% 1,000 MG/100 ML BOTTLE IV SCH ×5 (04:59→21:28)
[2017-05-24 05:21] LABS: EOS# 0.14 X1000 (0.0-0.7); EOS% 0.9 % (0.0-10.0); HEMATOCRIT 28.7 % (42.0-52.0); HEMOGLOBIN 9.3 g/dL (14.0-18.0); IMM GRAN# 0.04 X1000 (0.0-0.04); IMM GRAN% 0.3 % (0.0-0.5); LYMPH# 0.16 X1000 (1.2-3.4); MANUAL DIFF NEEDED? YES; MCHC 32.4 g/dL (33-37); MCV 92.6 FL (81-99); MONO# 0.59 X1000 (0.11-0.59); MONO% 3.8 % (1.7-9.3); MPV 10.2 FL (7.4-10.4); PLT 155 X1000 (130-400)
[2017-05-24 05:35] LABS: MAGNESIUM 2.2 mg/dL (1.5-2.7)
--- NOTE | 2017-05-24 05:37 | CONSULTATION ---
DATE OF CONSULTATION: 05/23/2017 CONCLUSION: Patient is seen in the intensive care unit. He is intubated. He has bibasilar opacities with possible pleural fluid. I think it is possible that the patient had an aspiration pneumonia. RECOMMENDATIONS: The patient has had cultures taken. He has had blood, urine, and sputum cultures taken. I agree with placing the patient on a combination of vancomycin and Zosyn. DISCUSSION: The patient is intubated and sedated. He is unable provide a history. No family member is present. Apparently, the patient was sitting on his toilet. He stood up and fell down. After, he felt his hip pop. He apparently stayed in that position for a prolonged period of time. Today, he had closed reduction of a previous left total hip arthroplasty. When he came back from the operating room, he became agitated. He was said to be seen to be throwing things around. He received sedation. Now, he is intubated and on a ventilator. His studies today show a CBC with a white count that is up to 22,530, hemoglobin 11.2, and platelet count 228,000. The patient's blood gases show a pH of 7.22, a PO2 of 88, a pCO2 of 47. The patient's creatinine is 1.5. The GFR is 46. Liver function studies show elevation of the AST at 144 and the ALT at 54. Blood, urine, and sputum cultures are pending. Patient is known to be an alcoholic. PAST MEDICAL HISTORY: Positive for COPD, peptic ulcer disease, gastroesophageal reflux disease, hypertension, congestive heart failure, CVA, hyperlipidemia, long-term alcohol abuse, and previous hip dislocation, osteoarthritis. PAST SURGICAL HISTORY: The patient's previous surgeries include left total hip arthroplasty, left hip reduction, partial gastrectomy secondary to peptic ulcer disease, cholecystectomy, and right knee arthroscopy. SOCIAL HISTORY: He lives alone. He is recently a , in the last month. Has a heavy history of alcohol and cigarette use but stopped smoking roughly a year ago. He does drink approximately 5-8 beers daily for the past 40 years. Before he stopped smoking, he was smoking 3 packs of cigarettes per day. ALLERGIES: His chart lists no known drug allergies. HOME MEDICATIONS: Include Ultram, Aldactazide, Crestor, Prilosec, Mobic, fenofibrate, and amlodipine. PHYSICAL EXAMINATION: Vital Signs: Temperature is 98.8 degrees, pulse 92, respirations 24, blood pressure 95/66. General: This is an ill-appearing, elderly male. He is intubated and sedated. Head, Eyes, Ears, Nose, and Throat: The patient has an orotracheal tube in place. There is no drainage from the nose or ears. Neck: No meningismus. Thorax: Increased AP diameter of the chest. Lungs: Clear to auscultation. Cardiovascular: Regular heart rate. Abdomen: Soft and nontender. Neurological: The patient is obtunded. He did not respond to verbal stimuli during my exam. The patient did not move any of his extremities. Integument: No rash noted. Thank you for the consult. cc: Thor Fields MD
[2017-05-24 05:47] LABS: ALBUMIN 2.8 g/dL (3.5-5.0); POTASSIUM 3.8 mmol/L (3.5-5.1); TOTAL BILIRUBIN 0.69 mg/dL (0.20-1.00); TOTAL PROTEIN 5.4 g/dL (6.3-8.3)
[2017-05-24 07:11] LABS: BANDS 8 % (0-1); HYPOCHROM 1+; LYMPHS 2 % (21-51); MONO 2 % (1-9)
--- NOTE | 2017-05-24 07:18 | Diag Imaging Result Doc PS360 ---
EXAM: CHEST-PORTABLE INDICATION: respiratory failure TECHNIQUE: One view COMPARISON: 05/23/2017 FINDINGS: Support tubes and lines appear to be in stable position. Infiltrate at the left lung base appear to have worsened somewhat. Infiltrate at the right lung base is approximately stable. There is suggestion of a small right pleural effusion that is stable. Cardiac silhouette is stable. IMPRESSION: Somewhat worse consolidation at the left lung base. Essentially stable, otherwise. Electronically signed by Shahbaz Taylor 05/24/2017 7:16 AM
[2017-05-24] MEDS ORDERED: SODIUM PHOSPHATE 30 MMOL in NS 250 ML IV ONE (07:30)
[2017-05-24 07:41] LABS: ALLEN TEST YES; DRAW SITE R RADIAL
[2017-05-24] MEDS: SANTYL OINT TOP SCH (08:03)
[2017-05-24] MEDS: METANX PO SCH (08:03)
[2017-05-24] MEDS: MYCOSTATIN POWDER TOP SCH (08:04)
[2017-05-24] MEDS ORDERED: NS 250 ML ONE (08:12)
[2017-05-24] MEDS ORDERED: NS 500 ML ONE (09:05)
[2017-05-24] MEDS: PEPCID IV SCH ×2 (10:24→22:16)
[2017-05-24 11:11] LABS: HEPATITIS PROFILE ACUTE SEE COMMENTS
--- NOTE | 2017-05-24 13:55 | PROGRESS NOTE ---
DATE: 05/24/2017 SUBJECTIVE: Ms. Escoto is intubated and sedated in the ICU. He underwent closed reduction of his left hip over the weekend, with Dr. Perez. OBJECTIVE: Left lower extremity exam: Left lower extremity looks to be out to length. Of course, I cannot get a good neuro exam, because he is intubated and sedated. He has a good pulse. ASSESSMENT: Status post left hip closed reduction. PLAN: Right now, Mr. Escoto is in a hip abduction pillow. We will keep him there. He is undergoing a lot of medical treatment per the ICU team. We will probably obtain an x-ray in a few days to make sure the hip is still located. cc: Brigido Stokes MD
[2017-05-24] MEDS ORDERED: LASIX IV ONE (14:00)
[2017-05-24] MEDS ORDERED: ALBUMIN 25% IV ONE (14:45)
--- NOTE | 2017-05-24 14:56 | PROGRESS NOTE ---
DATE: 05/24/2017 SUBJECTIVE: Patient continues on ventilator and sedated. He is on very low-dose Levophed and this is being tapered. OBJECTIVE: Vital Signs: Blood pressure 123/49, heart rate 90 and regular, with ECG monitor showing sinus rhythm. Oxygen saturation 94%. FiO2 is 40%. CVP check via PICC line and is it around 10. Auscultation of the chest reveals a few expiratory rhonchi bilaterally. Cardiac exam reveals a regular rate and rhythm without appreciable murmur or gallop. Extremities are without edema. LABORATORY DATA: White blood cell count of 15.71 which is decreased from 22.53. IMPRESSION: 1. Respiratory failure. Possible aspiration. 2. Status post relocation of dislocated hip prosthesis. 3. Abnormal cardiac enzymes on presentation likely related to skeletal muscle injury. 4. Chronic obstructive pulmonary disease. 5. History of congestive heart failure in the past with preserved left ventricular systolic function. Suspect combination of cor pulmonale in diastolic left heart failure. RECOMMENDATIONS: 1. Continue supportive care. 2. Further atrial fibrillation. Consider initiation of intravenous amiodarone. cc: Hamilton Rodriguez MD
--- NOTE | 2017-05-24 15:46 | PROGRESS NOTE ---
DATE: 05/24/2017 SUBJECTIVE: The patient remains sedated on the ventilator. He is currently on a low dose of Levophed. OBJECTIVE: Vital Signs: Temperature 97.4 degrees, blood pressure 123/49, heart rate 90, respirations 24, O2 saturations 94% on the mechanical ventilator. General: This is a chronically ill-appearing, elderly male, lying in bed, in no acute distress. Head: Normocephalic, atraumatic. Heart: S1, S2. Normal. Lungs: Coarse breath sounds bilaterally, no crackles. Abdomen: Positive bowel sounds. Soft, nontender, nondistended. Extremities: +1 edema. No cyanosis. No calf tenderness. Neurologic: The patient is currently sedated and on the ventilator. LABORATORY: White blood cell count 15, hemoglobin 9.3, hematocrit 28, platelets 155,000. ABG: PH of 7.39, pCO2 34, PO2 123, sodium 140, potassium 3.8, chloride 107, CO2 20, BUN 47, creatinine 1.4, glucose 247, AST 48, ALT 32, alkaline phosphatase 31, albumin 2.8. ASSESSMENT AND PLAN: 1. Acute hypercapnic and hypoxemic respiratory failure. Continue with ventilatory management as per the mixer and scaler. 2. Pneumonia. Continue on broad-spectrum antibiotic coverage. Infectious Disease is following. 3. Acute kidney injury. The patient's urine output has decreased a little bit today. I will give the patient a 1 time dose of Lasix and albumin. 4. Metabolic encephalopathy. Unchanged. Patient is sedated. 5. Hypotension. We will continue to try and wean off the Levophed drip. 6. Atrial fibrillation. Rate controlled. Cardiology is following. 7. Severe protein calorie malnutrition. Continue on Clinimix. 8. Status post left total hip arthroplasty secondary to a left hip dislocation. Management as per the orthopedic surgeon. 9. Gastrointestinal prophylaxis. Continue on Pepcid. 10. Deep vein thrombosis prophylaxis. Continue on Lovenox. 11. The patient remains critically ill with a high risk of mortality. cc: Karin Sullivan MD
[2017-05-24] MEDS: MORPHINE IV PRN (18:00)
--- NOTE | 2017-05-24 20:14 | PROGRESS NOTE ---
DATE: 05/24/2017 PRESENT ILLNESS: The patient has bibasilar pneumonia with some possible pleural effusion. The pneumonia most likely is due to aspiration. MEDICATIONS: The patient is receiving a combination of vancomycin and Zosyn. PHYSICAL EXAMINATION: Vital Signs: Temperature is 97.5 degrees, pulse 81, respirations 24, blood pressure 103/50. General: This is an ill-appearing, elderly male. He is intubated and sedated. Lungs: Scattered rhonchi bilaterally. Cardiovascular: Heart rate is regular. Abdomen: Soft and nontender. Extremities: Legs with no swelling or erythema. LABS AND X-RAY: The patient's CBC shows a white count of 15,710, hemoglobin 9.3, and platelet count 155,000. Blood gases show a pH of 7.39, PO2 of 123, pCO2 of 34. Creatinine is 1.4. GFR is 50. Blood, urine and sputum cultures are pending. Chest x-ray shows left lower lobe infiltrate. ASSESSMENT AND PLAN: The patient has left lower lobe pneumonia. My plan is to continue treatment with the current antibiotics. COMORBIDITIES: He has COPD, gastroesophageal reflux disease, congestive heart failure, long-term alcohol abuse. cc: Thor Fields MD
[2017-05-24] MEDS: LOVENOX SUBQ SCH (20:35)
[2017-05-24] MEDS: VANCOMYCIN 1.6 GM in NS 250 ML IV SCH (22:12)
[2017-05-25] MEDS: SOLU-MEDROL IV SCH ×3 (01:11→21:00)
[2017-05-25] MEDS: LOPRESSOR PO SCH ×4 (01:12→20:35)
[2017-05-25] MEDS: ZOSYN 3.375 GM/NS 3.375 GM/50 ML IVPB IV SCH (03:03)
[2017-05-25] MEDS: DIPRIVAN 1% 1,000 MG/100 ML BOTTLE IV SCH ×6 (03:03→22:39)
[2017-05-25] MEDS: DUONEB (A & A) INH SCH ×6 (03:38→23:13)
[2017-05-25] MEDS: CLINIMIX E 4.25%-5% SOLUTION 1,000 ML IV SCH ×2 (04:12→16:36)
[2017-05-25 04:51] LABS: ALLEN TEST YES; BE -2.5 mmoll (-3.0-3.0); BLOOD TYPE ARTERIAL; DRAW SITE R RADIAL; O2(CT) 20.5 mL/dL (15.0-23.0); PCO2(98.6) 28 mmHg (35-45); PO2(98.6) 104 mmHg (60-100); SAMPLE BLOOD; SAO2 98.8 % (95.0-100.0); SRATE 24 BPM; THB 15.1 g/dL (11.5-17.4); TVOL 550 mL; pH(98.6) 7.46 (7.35-7.45)
[2017-05-25 04:52] LABS: MODALITY VENTILATOR
[2017-05-25 05:58] LABS: MAGNESIUM 2.3 mg/dL (1.5-2.7)
[2017-05-25 06:25] LABS: ALBUMIN 2.9 g/dL (3.5-5.0); CALCIUM 8.2 mg/dL (8.8-10.2); POTASSIUM 3.6 mmol/L (3.5-5.1); TOTAL BILIRUBIN 0.55 mg/dL (0.20-1.00); TOTAL PROTEIN 4.8 g/dL (6.3-8.3)
[2017-05-25 07:31] LABS: HEMATOCRIT 24.2 % (42.0-52.0); HEMOGLOBIN 7.9 g/dL (14.0-18.0); IMM GRAN# 0.03 X1000 (0.0-0.04); IMM GRAN% 0.4 % (0.0-0.5); LYMPH# 0.15 X1000 (1.2-3.4); LYMPH% 1.8 % (20.5-51.1); MANUAL DIFF NEEDED? YES; MCH 29.5 PG (27-31); MCHC 32.6 g/dL (33-37); MCV 90.3 FL (81-99); MONO# 0.23 X1000 (0.11-0.59); MONO% 2.8 % (1.7-9.3); MPV 9.8 FL (7.4-10.4); PLT 70 X1000 (130-400); RBC 2.68 XMIL (4.7-6.1)
--- NOTE | 2017-05-25 07:35 | Diag Imaging Result Doc PS360 ---
CHEST-PORTABLE - 05/25/2017 INDICATION: respiratory failure TECHNIQUE: COMPARISON: 05/24/2017 FINDINGS: Stable endotracheal tube and nasogastric tube in good position. There is apparently a new right PICC line in good position with the catheter tip in the mid SVC. There is slight worsening in the left basilar alveolar infiltrate mostly in the lower lobe. Stable infiltrate and probable small effusion at the right lung base. Stable diffuse pulmonary vascular congestion. Stable cardiomegaly. IMPRESSION: 1. New right PICC line in good position. Other support tubes are stable. 2. Slight worsening infiltrate in the left lower lobe. Electronically signed by Parker Amador 05/25/2017 7:33 AM
[2017-05-25 07:55] LABS: BANDS 2 % (0-1); LYMPHS 2 % (21-51); MONO 2 % (1-9); NRBC 1 % (0-0)
[2017-05-25] MEDS: METANX PO SCH (08:31)
[2017-05-25] MEDS: MYCOSTATIN POWDER TOP SCH (08:32)
[2017-05-25] MEDS: SANTYL OINT TOP SCH (08:32)
[2017-05-25] MEDS: SODIUM CHLORIDE 0.9% INJ SCH (10:14)
[2017-05-25] MEDS: PEPCID IV SCH ×2 (10:14→22:38)
[2017-05-25] MEDS: MAXIPIME 2 GM/NS 2 GM/100 ML IVPB IV SCH ×2 (10:53→22:38)
[2017-05-25] MEDS ORDERED: ZOSYN 2.25 GM/NS 2.25 GM/50 ML IVPB IV SCH (11:00)
--- NOTE | 2017-05-25 15:46 | CONSULTATION ---
DATE OF CONSULTATION: 05/25/2017 REASON FOR ADMISSION: Recent fall with dislocation of left hip with status post arthroplasty in 2011. REASON FOR CONSULTATION: Acute kidney injury with decreased urinary output. CONSULTING PHYSICIAN: Dr. Sullivan HISTORY OF PRESENT ILLNESS: Mr. Escoto is a 76-year-old white male who has a history of a normal kidney function prior to this hospitalization of 0.6. Patient subsequently had fallen at home on 05/21/2017 in his bathroom. He had a left hip dislocation and could not get himself up. He had spent approximately 10-12 hours on the floor and was in the operating room yesterday for a closed reduction of the left total hip arthroplasty. Patient developed confusion delivery rn. It is noted that he had decreased urinary output. They had a 22 coude Huerta catheter in with minimal urine. He had gradual worsening of his level of consciousness and he had decreased PO2 support of 44. Dr. Vivar was consulted. Patient was intubated and is currently ventilator dependent with sedation. This a.m., they had been flushing his Huerta catheter. They did a bladder scan and found that he had greater than 450 mL of urine. Subsequently, the coude was removed. They were able to place a 16-[place]yr[place] Huerta catheter. Patient has had greater than 970 mL of urine out to his Huerta. He currently has approximately 250-300 mL in his urometer at this time. PAST MEDICAL/SURGICAL HISTORY: Severe COPD with dyspnea. Cannot walk greater than 100 feet. He has been told he needs home O2. He does night use. Status post left total hip arthroplasty in October 2016 with revision in 05/24/2017 with dislocation as above. Hypertension, gastroesophageal reflux disease, history of CVA, heart failure of unknown type, peptic ulcer disease, partial gastrectomy, status post cholecystectomy, post right knee arthroscopic. SOCIAL HISTORY: Patient lives alone. He lost his approximately 3 weeks ago. History of daily alcohol use. Greater than 100 pack per year smoker, though he has not smoked in a year. Denies illicit drug use. FAMILY HISTORY: Positive for heart disease, hypertension, diabetes mellitus, head and neck cancer and dyslipidemia. CURRENT ALLERGIES: No known drug allergies. HOME MEDICATIONS: Crestor, Prilosec, fenofibrate, Aldactazide, Mobic, Norvasc and Ultram. REVIEW OF SYSTEMS: Unable to obtain per patient. These have been obtained from the chart. VITAL SIGNS: Patient has a temperature of 97.5 degrees, blood pressure 146/58, heart rate 73, respirations 18. He has had 3389 in, 970 out per new Huerta catheter. He is currently on 40% FiO2. Last recorded saturation 98%. LABS: Sodium 141, potassium 3.6 chloride 105, CO2 19, BUN 62, creatinine 1.5, glucose 158. Anion gap 19, calcium 8.2, phosphorus 3.5, albumin 2.3. White count 8.14, hemoglobin 7.9, hematocrit 24.2, with a platelet count of 70,000. It is noted he has a gram-negative kailash in his sputum culture. Sensitivity is still pending. Patient is currently receiving Clinimix, Levophed. IV antibiotics of vancomycin and Zosyn. We will change to renal dosing. PHYSICAL EXAMINATION: General: This is a 76-year-old white male. He is currently resting in bed. He is in no acute distress. He is intubated and sedated. Skin: Warm and dry. HEENT: Normocephalic. Atraumatic. Conjunctivae pale. Pupils are equal and reactive to light, though sluggish. Neck: Supple. Trachea midline. No appearance of JVD. Cardiovascular: Regular rate and rhythm on the monitor. He has distant heart sounds. No gallop or murmur appreciated. Lungs: Coarse breath sounds bilateral. They have been suctioning copious yellow secretions. Abdomen: Soft, positive bowel sounds, hypoactive. NG tube remains to low intermittent suction. Pale yellow bile secretions to drainage. Extremities: Edema to the right hand greater than the left. Otherwise lower extremities are cool to touch. No clubbing or cyanosis noted. Neurological: As above. ASSESSMENT AND PLAN: 1. Acute kidney injury. More than likely this is related to outlet obstruction. Patient has had a new Huerta catheter in place with increased urine output. He appears to be well-hydrated. He is not in any fluid overload. We will check a renal ultrasound. Urine electrolytes are indicate a FeNa score of 0.1% indicating more prerenal. No indications for intervention. We will recheck labs in the a.m. 2. Respiratory failure. Status post long history of chronic obstructive pulmonary disease with questionable pneumonia. This is being followed by Dr. Vivar. Electrolytes. These are stable at this time. 3. Acid-base balance. Patient has mild anion gap and metabolic acidosis. No indications for intervention. He remains on ventilatory support. 4. Anemia. This remains low. We will defer to the primary care team for intervention as indicated. 5. Status left hip arthroplasty. This is followed by the surgeon. I would like to thank you for allowing us to follow with this patient. Dictated by MARGARITA Johnson for Watson Kahn MD cc: MARGARITA Johnson MD [facility]
--- NOTE | 2017-05-25 16:01 | Diag Imaging Result Doc PS360 ---
EXAM: US RENAL 2 (RETROPER) COMPLETE HISTORY: Elevated creatinine TECHNIQUE: COMPARISON: None. FINDINGS: The right kidney measures 9.9 x 6.2 x 5.7 cm. Questionable mild cortical thinning. No renal stone or hydronephrosis. There may be a cortical calcification in the mid kidney. There is a 1.6 cm cyst laterally. The left kidney measures 10.9 x 5.3 x 6.3 cm. Normal renal echogenicity and cortical thickness. No renal stone or hydronephrosis. No renal mass. There is a small amount of ascites seen in the upper abdomen. The urinary bladder is only mildly distended. IMPRESSION: 1. Small right renal cyst with questionable mild cortical thinning on the right. 2. Small amount of ascites Electronically signed by Santino Leal 05/25/2017 3:59 PM
[2017-05-25] MEDS: MORPHINE IV PRN (19:45)
--- NOTE | 2017-05-25 20:19 | PROGRESS NOTE ---
DATE: 05/25/2017 SUBJECTIVE: The patient remains on the ventilator. He is off pressor support. His urine output has increased since his Huerta catheter was changed. OBJECTIVE: Vital Signs: Temperature 97.9 degrees, blood pressure 145/53, heart rate 71, respirations 14, O2 saturations 94% on the mechanical ventilator. Intake 3.3 L, output 970 mL. General: This is a chronically ill-appearing, elderly male, lying in bed. Head: Normocephalic, atraumatic. Heart: S1, S2. Normal. Regular rate and rhythm. Lungs: Equal air entry bilaterally. No crackles. No rales. Abdomen: Positive bowel sounds. Soft, nontender, nondistended. Extremities: No edema. No cyanosis. No calf tenderness. Neurologic: The patient is sedated on the ventilator. LABORATORY: White blood cell count 8.1, hemoglobin 7.9, hematocrit 24, platelets 70,000. ABG: PH of 7.46, pCO2 28, PO2 104, bicarb 22, sodium 141, potassium 3.6, chloride 105, CO2 19, BUN 62, creatinine 1.5, glucose 158. AST 211, ALT 83. ASSESSMENT AND PLAN: 1. Acute hypercapnic and hypoxemic respiratory failure. Continue with ventilatory support, IV antibiotics, IV steroids and pulmonary toiletry. Management as per the scrap metal processing worker. 2. Suspected aspiration pneumonia. Continue on the current IV antibiotic therapy. The sputum culture is growing Gram-negative rods. 3. Acute kidney injury. The patient's urine output has improved since the Huerta catheter was changed. We will continue to monitor this closely. Nephrology has been consulted. 4. Atrial fibrillation. Rate controlled. Management as per the media operator. 5. Severe protein calorie malnutrition. The patient is currently on tube feeds. 6. Metabolic encephalopathy. The patient remains sedated. 7. Status post left hip arthroplasty secondary to a left hip dislocation. Management as per the orthopedic surgeon. 8. Thrombocytopenia. The heparin-induced antibody assay has been ordered. We will discontinue the Lovenox for now. 9. Anemia. The patient's hemoglobin and hematocrit are decreased today. We will continue to monitor closely and transfuse p.r.n. 10. Elevated liver function tests. We will check a hepatitis profile and repeat the liver function tests in the morning. 11. Gastrointestinal prophylaxis. Continue on Pepcid. 12. The plan of care was discussed with the patient's daughter at the bedside. All questions were answered. cc: Karin Sullivan MD
[2017-05-25] MEDS ORDERED: LASIX IV ONE (22:00)
[2017-05-26] MEDS: LOPRESSOR PO SCH ×4 (01:36→19:59)
[2017-05-26] MEDS: DUONEB (A & A) INH SCH ×6 (02:51→23:10)
[2017-05-26] MEDS: CLINIMIX E 4.25%-5% SOLUTION 1,000 ML IV SCH ×2 (04:37→17:08)
[2017-05-26 04:42] LABS: ALLEN TEST YES; BE -0.3 mmoll (-3.0-3.0); BLOOD TYPE ARTERIAL; DRAW SITE R RADIAL; PCO2(98.6) 38 mmHg (35-45); PO2(98.6) 86 mmHg (60-100); SAMPLE BLOOD; SRATE 14 BPM; THB < 3.0 g/dL (11.5-17.4); TVOL 550 mL; pH(98.6) 7.41 (7.35-7.45)
[2017-05-26 04:44] LABS: MODALITY VENTILATOR
[2017-05-26 05:49] LABS: EOS# 0.01 X1000 (0.0-0.7); EOS% 0.1 % (0.0-10.0); HEMATOCRIT 24.5 % (42.0-52.0); HEMOGLOBIN 7.8 g/dL (14.0-18.0); IMM GRAN# 0.05 X1000 (0.0-0.04); IMM GRAN% 0.6 % (0.0-0.5); LYMPH% 2.2 % (20.5-51.1); MANUAL DIFF NEEDED? YES; MCH 29.3 PG (27-31); MCHC 31.8 g/dL (33-37); MCV 92.1 FL (81-99); MONO# 0.25 X1000 (0.11-0.59); MONO% 2.8 % (1.7-9.3); MPV 10.8 FL (7.4-10.4); NEUT% 94.3 % (42.2-75.2); PLT 78 X1000 (130-400); RBC 2.66 XMIL (4.7-6.1)
[2017-05-26 06:11] LABS: BANDS 14 % (0-1); LYMPHS 2 % (21-51); MONO 2 % (1-9)
[2017-05-26 06:13] LABS: MAGNESIUM 2.2 mg/dL (1.5-2.7)
[2017-05-26 06:20] LABS: ALBUMIN 2.7 g/dL (3.5-5.0); CALCIUM 8.5 mg/dL (8.8-10.2); POTASSIUM 4.2 mmol/L (3.5-5.1); TOTAL BILIRUBIN 0.42 mg/dL (0.20-1.00); TOTAL PROTEIN 5.2 g/dL (6.3-8.3)
--- NOTE | 2017-05-26 07:22 | Diag Imaging Result Doc PS360 ---
EXAM: CHEST-PORTABLE HISTORY: respiratory failure TECHNIQUE: Erect AP portable chest at 0525 COMMENT: There is an endotracheal tube with its tip below the thoracic inlet. There is an NG tube passes below the diaphragm. There is a PICC line on the right with its tip in the spur vena cava. There is hazy opacification of both lower lobes consistent with pulmonary edema. The possibility of pneumonia cannot be excluded. There are bilateral pleural effusions. Slight improvement is present over the left lower lobe compared to 05/25/2017. Otherwise, there is been no significant change. IMPRESSION: Pulmonary edema with pleural effusions. Electronically signed by Tony Anne 05/26/2017 7:20 AM
--- NOTE | 2017-05-26 07:51 | PROGRESS NOTE ---
DATE: 05/26/2017 PRESENT ILLNESS: The patient has a Klebsiella pneumonia and a Morganella urinary tract infection. MEDICATIONS: The patient was on vancomycin and cefepime. I am continuing cefepime but I have stopped vancomycin. PHYSICAL EXAMINATION: Vital Signs: Temperature is 98 degrees, pulse 68, respirations 16, blood pressure 125/47. General: This is an obtunded elderly male. He is in no acute distress. Lungs: Clear to auscultation. Cardiovascular: Heart rate is regular. Abdomen: Soft and nontender. Neurologic: The patient was not arousable. He is breathing on his own and is in no acute distress. LABORATORY DATA AND X-RAY: Patient's chest x-ray shows bibasilar opacities. Sputum is growing Klebsiella. Urine is growing Morganella. The patient's CBC shows a white count of 8980, hemoglobin 7.8, and platelet count is 78,000. Creatinine is 1.4. GFR is 50. Blood gases show a pH of 7.41, a PO2 of 86, and a pCO2 of 38. ASSESSMENT AND PLAN: The patient has a Klebsiella pneumonia and a Morganella urinary tract infection. The plan is to continue with cefepime as a single agent. Patient's comorbidities include long-term alcohol abuse, COPD, gastroesophageal reflux disease and congestive heart failure. cc: Thor Fields MD
[2017-05-26] MEDS: METANX PO SCH (08:17)
[2017-05-26] MEDS: MYCOSTATIN POWDER TOP SCH (08:17)
[2017-05-26] MEDS: SANTYL OINT TOP SCH (08:18)
[2017-05-26] MEDS: SOLU-MEDROL IV SCH ×2 (09:21→21:12)
[2017-05-26] MEDS: DIPRIVAN 1% 1,000 MG/100 ML BOTTLE IV SCH ×4 (11:05→23:15)
[2017-05-26] MEDS: MAXIPIME 2 GM/NS 2 GM/100 ML IVPB IV SCH ×2 (11:06→23:12)
[2017-05-26] MEDS: PEPCID IV SCH ×2 (11:07→23:11)
--- NOTE | 2017-05-26 13:07 | PROGRESS NOTE ---
DATE: 05/26/2017 SUBJECTIVE: The patient remains intubated and sedated on the ventilator. OBJECTIVE: Vital Signs: Temperature 97 degrees, blood pressure 137/47, heart rate 70, respirations 18, O2 saturations 96% on mechanical ventilator. General: This is a chronically ill- appearing male lying in bed. Head: Normocephalic, atraumatic. Heart: S1, S2. Normal. Lungs: Equal air entry bilaterally. Abdomen: Positive bowel sounds. Soft, nontender, nondistended. Extremities: No edema. No cyanosis. Neurologic: The patient is currently sedated. LABS: White blood cell count 8.9, hemoglobin 7.8, hematocrit 24, platelets 78. Sodium 141, potassium 4.2, chloride 105, CO2 23, BUN 73, creatinine 1.4, glucose 139. AST 98, ALT 87, alkaline phosphatase 49, albumin 2.7. ASSESSMENT AND PLAN: 1. Acute hypercapnic and hypoxemic respiratory failure. Continue with ventilatory support, intravenous antibiotics, intravenous steroids and pulmonary toiletry. Management as per the superintendent greens. 2. Aspiration pneumonia secondary to Klebsiella. Continue on the current antibiotic regimen. 3. Urinary tract infection secondary to Morganella. Continue on intravenous antibiotic therapy. 4. Acute kidney injury. We will continue to monitor closely for improvement. 5. Atrial fibrillation. Rate controlled. 6. Severe protein calorie malnutrition. Continue on tube feeds. 7. Thrombocytopenia. We will continue to hold the Lovenox at this time. We will follow up on the heparin-induced antibody assay. 8. Status post left hip arthroplasty secondary to left hip dislocation. Stable. 9. Anemia. The patient's hemoglobin and hematocrit is a little bit lower today. We will continue to monitor and transfuse as needed. 10. Elevated liver function tests. Improved. 11. Gastrointestinal prophylaxis. Continue on Pepcid. cc: Karin Sullivan MD
--- NOTE | 2017-05-26 13:56 | PROGRESS NOTE ---
DATE: 05/26/2017 TIME SEEN: 0810. SUBJECTIVE: Mr. Escoto is resting quietly in bed. He remains ventilator dependent with sedation. OBJECTIVE: Vital Signs: His most recent vital signs are temperature 98 degrees, blood pressure 123/45, heart rate 64, and respirations are 22. He is on 40% FiO2. Last recorded saturation 95%. He has had 3320 in, 2710 out per Huerta catheter with 100 of that per NG tube. LABORATORIES: Sodium 141, potassium 4.2, chloride 105, CO2 of 23, BUN 73, creatinine 1.4, glucose 139, anion gap 13, calcium 8.5, phosphorus 4.7, magnesium 2.2, albumin 2.7. White count 8.98, hemoglobin 7.8, hematocrit 24.5, with a platelet count of 78,000. Random vancomycin level 17.7. ABGs: pH 7.41, CO2 of 38, PO2 of 86, bicarbonate 24.7 on 40%. Urine culture indicates Morganella morganii S, sensitivity still pending. Sputum culture indicates Klebsiella pneumoniae. Patient currently remains on Levophed drip, Clinimix, and Diprivan, with IV antibiotics per Dr. Fields. PHYSICAL EXAMINATION: General: This is a 76-year-old white male. He is currently sedated, ventilator dependent. He is in no acute distress. Skin: Warm and dry. HEENT: Normocephalic, atraumatic. Conjunctivae pale. He has ANTHONY, though these are sluggish secondary to sedation. Neck: Supple. Trachea midline. He has no appearance of JVD. Cardiovascular: Regular rate and rhythm. No murmur or gallop appreciated. Distant heart sounds. Lungs: Coarse breath sounds continued, though suctioning copious amounts of yellow continues. Remains ventilator dependent with IV antibiotics. Abdomen: Soft. Hypoactive bowel sounds. NG tube remains to low intermittent suction, pale yellow to drainage tubes. Extremities: He has edema to the right greater than left on the hands. Cool to touch. One plus lower extremity edema noted. No clubbing or cyanosis. Neurologic: As above. ASSESSMENT AND PLAN: 1. Acute kidney injury related to outlet obstruction. Patient's BUN continues to elevate. This may be related to his Clinimix. We will continue to monitor. His creatinine has just taken a slight bump towards improvement. No indications for any further intervention. Blood pressure remains stable. Adequate intake and output. We will continue to monitor. 2. Respiratory failure. Patient is ventilator dependent. He is currently sedated. Dr. Vivar continues to monitor and follow. 3. Electrolytes. These are stable. 4. Acid-base balance. Patient has a closing anion gap. These remain stable. No indications for intervention. 5. Anemia. This remains low. We will defer to the Primary Care team. 6. Status post left hip arthroplasty with reduction. This is followed by Surgery and the Primary Care Team. I would like to thank you for allowing us to follow with this patient. Dictated by MARGARITA Johnson for Watson Kahn MD cc: MARGARITA Johnson MD
--- NOTE | 2017-05-26 14:00 | PROGRESS NOTE ---
DATE: 05/26/2017 SUBJECTIVE: Patient continues sedated on ventilator. OBJECTIVE: Vital Signs: Blood pressure 137/47, heart rate 70 and regular, oxygen saturation 96%. Neck: There is no significant jugular venous distention. Chest: Clear to auscultation bilaterally. Cardiac: Regular rate and rhythm, without appreciable murmur or gallop. There is no evidence of peripheral edema. IMPRESSIONS: 1. Respiratory failure. 2. Probable aspiration pneumonia with Klebsiella growing in sputum. 3. Status post relocation of dislocated hip prosthesis. 4. Abnormal cardiac enzymes on presentation, probably related to skeletal muscle injury. 5. Chronic obstructive pulmonary disease. 6. Chronic congestive heart failure in the past with preserved left ventricular systolic function. Suspect combination of cor pulmonale and diastolic heart failure. RECOMMENDATIONS: 1. Continue current supportive care. 2. If further atrial fibrillation, consider initiation of intravenous amiodarone. cc: Hamilton Rodriguez MD
[2017-05-26] MEDS ORDERED: LASIX IV ONE (22:00)
[2017-05-27] MEDS: LOPRESSOR PO SCH ×4 (01:24→20:44)
[2017-05-27] MEDS: MORPHINE IV PRN (02:43)
[2017-05-27] MEDS: DUONEB (A & A) INH SCH ×6 (03:30→23:07)
[2017-05-27 04:24] LABS: ALLEN TEST YES; BE 0.5 mmoll (-3.0-3.0); BLOOD TYPE ARTERIAL; DRAW SITE R RADIAL; METHB 1.8 % (0.0-1.5); O2(CT) 9.2 mL/dL (15.0-23.0); PCO2(98.6) 41 mmHg (35-45); PO2(98.6) 85 mmHg (60-100); SAMPLE BLOOD; SAO2 99.5 % (95.0-100.0); SRATE 10 BPM; THB 6.8 g/dL (11.5-17.4); TVOL 550 mL
[2017-05-27 04:25] LABS: MODALITY VENTILATOR
[2017-05-27] MEDS: DIPRIVAN 1% 1,000 MG/100 ML BOTTLE IV SCH ×5 (04:25→23:02)
[2017-05-27 04:38] LABS: MANUAL DIFF NEEDED? NO
[2017-05-27 05:17] LABS: ALBUMIN 2.7 g/dL (3.5-5.0); BASO% 0.1 % (0.0-0.8); CALCIUM 7.9 mg/dL (8.8-10.2); HEMATOCRIT 25.2 % (42.0-52.0); IMM GRAN# 0.12 X1000 (0.0-0.04); IMM GRAN% 1.6 % (0.0-0.5); LYMPH# 0.58 X1000 (1.2-3.4); LYMPH% 7.6 % (20.5-51.1); MCH 29.4 PG (27-31); MCHC 31.7 g/dL (33-37); MCV 92.6 FL (81-99); MONO# 0.51 X1000 (0.11-0.59); MONO% 6.7 % (1.7-9.3); MPV 11.3 FL (7.4-10.4); PLT 87 X1000 (130-400); POTASSIUM 3.9 mmol/L (3.5-5.1); RBC 2.72 XMIL (4.7-6.1); TOTAL BILIRUBIN 0.34 mg/dL (0.20-1.00); TOTAL PROTEIN 4.8 g/dL (6.3-8.3)
[2017-05-27] MEDS: CLINIMIX E 4.25%-5% SOLUTION 1,000 ML IV SCH (05:35)
--- NOTE | 2017-05-27 07:20 | Diag Imaging Result Doc PS360 ---
EXAM: CHEST-PORTABLE INDICATION: respiratory failure TECHNIQUE: One view COMPARISON: 05/26/2017 FINDINGS: Support tubes and lines are in stable positions. Bilateral infiltrates at the bases suggesting pulmonary edema are approximately stable. There are stable bilateral pleural effusions. No new consolidation is appreciated. Cardiac silhouette is stable. IMPRESSION: Stable chest. Electronically signed by Shahbaz Taylor 05/27/2017 7:18 AM
[2017-05-27] MEDS: METANX PO SCH (08:34)
[2017-05-27] MEDS: SANTYL OINT TOP SCH (08:34)
[2017-05-27] MEDS: MYCOSTATIN POWDER TOP SCH (08:34)
[2017-05-27] MEDS: PEPCID IV SCH ×2 (10:35→23:04)
[2017-05-27] MEDS: SODIUM CHLORIDE 0.9% INJ SCH (10:35)
[2017-05-27] MEDS: D5 NS 1,000 ML IV SCH (10:35)
[2017-05-27] MEDS: SOLU-MEDROL IV SCH ×2 (10:35→22:45)
[2017-05-27] MEDS: MAXIPIME 2 GM/NS 2 GM/100 ML IVPB IV SCH ×2 (10:42→23:04)
--- NOTE | 2017-05-27 13:57 | PROGRESS NOTE ---
DATE: 05/27/2017 SUBJECTIVE: Patient is resting in bed. He is currently sedated and mechanically ventilated. OBJECTIVE: Vital signs: Temperature 98.2 degrees, pulse 68, respiratory rate 24, blood pressure 128/52. Intake 3.4 L. Output 2.5 L. General: This is an elderly gentleman resting in bed. He is currently intubated and mechanically ventilated. HEENT: Normocephalic, atraumatic. Conjunctivae pale. He is orally intubated. Neck: Supple. Trachea midline. No JVD. Cardiovascular: Regular rate and rhythm. There is no murmur or gallop appreciated. Pulmonary: He has rhonchi bilaterally. He remains on the vent. He has equal excursion. Abdomen: Soft. Hypoactive bowel sounds. He has an NG tube with tube feeding infusing. Extremities: Right greater than left, 1+. He has dependent edema to the upper extremities, again right greater than left. No clubbing or cyanosis. Integumentary: He has ecchymoses noted bilaterally upper extremities. He has an Unna boot noted on the lower extremity. LAB DATA: WBC of 7.6, hemoglobin 8.0. Sodium 139, potassium 3.9, chloride 102, CO2 21, BUN 89, creatinine 1.4, albumin 2.7. ASSESSMENT AND PLAN: 1. Acute kidney injury secondary to outlet obstruction. His renal function is essentially unchanged. His BUN, however, continues to slowly rise. This is likely secondary to his Clinimix. The patient is also noted to be on Solu-Medrol. There is no intervention required at this time. We will continue to monitor and check labs in the morning. 2. Respiratory failure. Followed by primary and pulmonology. He remains on the vent. 3. Electrolytes, acid-base balance, anemia. These have been stable and anemia followed by primary. 4. Status post left hip arthroplasty with reduction. Followed by surgery and primary. Dictated by MARGARITA Rodriguez for Watson Kahn MD cc: Watson Kahn MD
--- NOTE | 2017-05-27 16:27 | PROGRESS NOTE ---
DATE: 05/27/2017 SUBJECTIVE: Patient continues sedated on ventilator. OBJECTIVE: Vital Signs: Blood pressure 115/41, heart rate 77 and regular with ECG monitor showing sinus rhythm. He had some very brief atrial fibrillation in the last 24 hours. Oxygen saturation 98% on FiO2 of 50%. Neck: There is no significant jugular venous distention. Chest: Auscultation of the chest demonstrates coarse breath sounds bilaterally. Cardiac Exam: Irregular rate and rhythm without appreciable murmur or gallop. There is no evidence of peripheral edema. IMPRESSION: 1. Respiratory failure. 2. Probable aspiration pneumonia with Klebsiella growing in sputum. 3. Status post relocation of dislocated hip prosthesis. 4. Abnormal cardiac enzymes on presentation, probably related to skeletal muscle injury. 5. Chronic obstructive pulmonary disease. 6. Chronic congestive heart failure in the past with preserved left ventricular systolic function. Suspect combination of cor pulmonale and diastolic heart failure. RECOMMENDATIONS: 1. Continue current soft supportive care. 2. Persistent atrial fibrillation. Consider initiation of intravenous amiodarone. 3. Dr. Salcido available if needed over this weekend. cc: Hamilton Rodriguez MD
--- NOTE | 2017-05-27 18:03 | PROGRESS NOTE ---
DATE: 05/27/2017 SUBJECTIVE: The patient remains intubated and sedated on the ventilator. No acute events noted overnight. OBJECTIVE: Vital Signs: Temperature 97.9 degrees, blood pressure 127/47, heart rate 68, respirations 19, O2 saturations 98% on the mechanical ventilator. General: This is a chronically ill-appearing male lying in bed in no acute distress. Head: Normocephalic, atraumatic. Heart: S1, S2. Normal. Irregular rate and rhythm. Lungs: Equal air entry bilaterally. No crackles. No rales. Abdomen: Positive bowel sounds. Soft, nontender, nondistended. Extremities: No edema. No cyanosis. Neurologic: The patient is currently sedated. LABORATORY: White blood cell count 7.6, hemoglobin 8, hematocrit 25, platelets 87,000. Sodium 139, potassium 3.9, chloride 102, CO2 21, BUN 89, creatinine 1.4, glucose 132, AST 100, ALT 100, alkaline phosphatase 68. ASSESSMENT AND PLAN: 1. Acute hypercapnic and hypoxemic respiratory failure. Ventilatory support. 2. Aspiration pneumonia secondary to Klebsiella. Continue on the current IV antibiotic regimen. 3. Urinary tract infection secondary to Morganella. Continue on antibiotic therapy. 4. Atrial fibrillation. Management as per the pastry cook helper. 5. Acute kidney injury. The patient's creatinine is stable; however, the BUN continues to rise. We will continue to monitor this closely. 6. Severe protein calorie malnutrition. The patient is currently on tube feeds. 7. Thrombocytopenia, improved. 8. Status post left hip arthroplasty secondary to left hip dislocation. Stable. 9. Elevated liver function tests. The patient's AST and ALT are elevated today. This may be secondary to the underlying disease processes. We will continue to monitor this closely. 10. The patient remains critically ill with a high risk of mortality. cc: Karin Sullivan MD [facility]
--- NOTE | 2017-05-27 18:33 | PROGRESS NOTE ---
DATE: 05/27/2017 PRESENT ILLNESS: The patient has a Klebsiella pneumonia and Morganella urinary tract infection. MEDICATIONS: This is day 2 of treatment with cefepime, yesterday I stopped vancomycin. PHYSICAL EXAMINATION: Vital Signs: Temperature is 97.9, pulse 68, respirations 19, blood pressure 127/47. General: This is a somewhat ill-appearing, elderly male. The patient is intubated and sedated. Lungs: Clear to auscultation. Cardiovascular: Heart rate is at times regular, other times it was irregular. Abdomen: Soft and nontender. LAB AND X-RAY: The patient's CBC shows a white count of 7640, hemoglobin 8 and platelet count 87,000. PH 7.4, pO2 is 85, pCO2 is 41. Creatinine is 1.4. GFR is 50. ASSESSMENT AND PLAN: I plan to continue cefepime as a single agent for treatment of the patient's pneumonia and urinary tract infection. COMORBIDITIES: Include alcohol abuse, COPD, gastroesophageal reflux disease and congestive heart failure. cc: Thor Fields MD [facility]
[2017-05-28] MEDS: LOPRESSOR PO SCH ×4 (02:00→20:29)
[2017-05-28] MEDS: D5 NS 1,000 ML IV SCH ×3 (03:00→20:30)
[2017-05-28] MEDS: DUONEB (A & A) INH SCH ×6 (03:24→23:36)
[2017-05-28 04:36] LABS: ALLEN TEST YES; BLOOD TYPE ARTERIAL; DRAW SITE R RADIAL; PCO2(98.6) 38 mmHg (35-45); PO2(98.6) 83 mmHg (60-100); SAMPLE BLOOD; SRATE 10 BPM; THB < 3.0 g/dL (11.5-17.4); TVOL 550 mL; pH(98.6) 7.43 (7.35-7.45)
[2017-05-28 04:37] LABS: MODALITY VENTILATOR
[2017-05-28 05:42] LABS: BASO% 0.2 % (0.0-0.8); EOS# 0.01 X1000 (0.0-0.7); EOS% 0.2 % (0.0-10.0); HEMATOCRIT 24.2 % (42.0-52.0); HEMOGLOBIN 7.8 g/dL (14.0-18.0); IMM GRAN# 0.15 X1000 (0.0-0.04); IMM GRAN% 2.3 % (0.0-0.5); LYMPH# 0.24 X1000 (1.2-3.4); LYMPH% 3.8 % (20.5-51.1); MANUAL DIFF NEEDED? YES; MCH 29.9 PG (27-31); MCHC 32.2 g/dL (33-37); MCV 92.7 FL (81-99); MONO# 0.41 X1000 (0.11-0.59); MONO% 6.4 % (1.7-9.3); MPV 11.4 FL (7.4-10.4); NEUT% 87.1 % (42.2-75.2); PLT 67 X1000 (130-400); RBC 2.61 XMIL (4.7-6.1)
[2017-05-28 06:16] LABS: ALBUMIN 2.4 g/dL (3.5-5.0); CALCIUM 8.2 mg/dL (8.8-10.2); POTASSIUM 4.6 mmol/L (3.5-5.1); TOTAL BILIRUBIN 0.45 mg/dL (0.20-1.00)
[2017-05-28] MEDS ORDERED: LANOXIN IV ONE (06:23)
[2017-05-28] MEDS ORDERED: NS 250 ML IV ONE (06:24)
[2017-05-28] MEDS ORDERED: LANOXIN ONE (06:26)
[2017-05-28] MEDS ORDERED: CORDARONE 360 MG/D5W 360 MG/200 ML IV.SOLN IV ONE (06:27)
[2017-05-28] MEDS ORDERED: CORDARONE 150 MG/D5W 150 MG/100 ML IV.SOLN IV ONE (06:27)
[2017-05-28 06:29] LABS: BANDS 8 % (0-1); LYMPHS 4 % (21-51); MONO 6 % (1-9)
[2017-05-28] MEDS: NEO-SYNEPHRINE 50 MG in NS 250 ML IV SCH (06:30)
[2017-05-28] MEDS ORDERED: NEO-SYNEPHRINE 50 MG in NS 250 ML IV SCH (07:00)
--- NOTE | 2017-05-28 07:36 | Diag Imaging Result Doc PS360 ---
EXAM: CHEST-PORTABLE HISTORY: respiratory failure TECHNIQUE: Portable COMPARISON: 05/27/2017 FINDINGS: No change in the endotracheal tube are in the right-sided PICC line. There are bibasilar infiltrates and atelectasis with small pleural effusions. Heart is not enlarged. The overall appearance is similar to that of the prior exam. IMPRESSION: Stable chest. Electronically signed by Santino Leal 05/28/2017 7:34 AM
[2017-05-28] MEDS: METANX PO SCH (08:36)
[2017-05-28] MEDS: MYCOSTATIN POWDER TOP SCH (08:37)
[2017-05-28] MEDS: SANTYL OINT TOP SCH (08:37)
--- NOTE | 2017-05-28 10:19 | PROGRESS NOTE ---
DATE: 05/28/2017 This morning, 05/28/2017, at approximately 6:00 a.m., the patient did have a sudden onset of SVT with hypotension. The patient's initial heart rate was in the 160s, his blood pressure was in the 80s systolically. The patient has had issues with atrial fibrillation during his admission. He is being followed by Cardiology at this time as well. We did place a call to relay assembler this morning and informed him of the patient's changes in cardiac rhythm as well as vital signs. He did agree with our orders of giving the patient digoxin 500 mcg IV as well as placing him on a Barry- Synephrine drip for blood pressure support. We did also order the patient to have a 250 mL normal saline bolus as well, and Dr. Salcido also wanted the patient placed on an amiodarone drip. These orders were placed and were implemented. Shortly after receiving digoxin and the loading dose of amiodarone, the patient's heart rate did improve with his last heart rate of 123 at approximately 7:00 a.m. with a blood pressure of 139/74 with a MAP of 104, respirations were 19, oxygen saturation is 95%. At this time, the patient's vital signs are improving since initiation of these medications. We will continue to monitor him closely. Further orders and recommendations pending hospital course, diagnostic studies and physician evaluation. Critical care time for this patient was approximately 25 minutes. Dictated by MARGARITA Mobley for Burak Gutierrez MD cc: Burak Gutierrez MD MTDD
--- NOTE | 2017-05-28 10:26 | PROGRESS NOTE ---
DATE: 05/28/2017 CHIEF COMPLAINT: Shortness of breath, irregular heart beat. SUBJECTIVE: The patient is intubated and sedated. He cannot offer any specific information. The patient is not in any distress. This morning, he had an episode of supraventricular tachycardia with diffuse ST-T abnormality noted on the EKG and hypotension. He was placed on Barry-Synephrine and amiodarone, and he has converted to sinus rhythm. Subsequent EKG done this morning at 9:35 a.m. shows that the EKG is basically normal. OBJECTIVE: Blood pressure is 173/58, temperature 98.3, pulse 81, respirations 12. He is not responsive. He is intubated on mechanical ventilation. 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 His chest shows diminished breath sounds with some rhonchi bilaterally. Heart sounds are regular and rhythmic at this time, no gallop or murmur is noted. Abdomen is distended. Bowel sounds are diminished. I do not feel any hepatomegaly. Extremities showed decreased pulses. No peripheral edema. Extremities are somewhat cool. Neurologic: He does not follow any commands, he is sedated. DIAGNOSTIC DATA: Blood work today shows a hemoglobin of 7.8, hematocrit 24.2, platelet count 67,000, neutrophils are 82%, bands 8% total WBC: 6,390 per cu mm. ABGs on 50% FiO2 showed pH of 7.43, pO2 is 83, pCO2 is 38. Sodium is 141, potassium 4.6, BUN is 93, creatinine 1.3. AST is 104, ALT is 117, albumin is 2.4. His chest x-ray from today shows evidence of bibasilar infiltrates and atelectasis with small pleural effusions. Heart is not enlarged. Sputum is growing Klebsiella. Urine is growing Morganella morganii. The Klebsiella is sensitive to cefazolin. The Morganella morganii is sensitive to ceftazidime and to piperacillin tazobactam. The patient is presently receiving cefepime and nystatin. IMPRESSION: 1. The patient presented to the hospital after suffering a fall with dislocation of the left hip that has been reduced. 2. He does have respiratory failure due to severe chronic obstructive pulmonary disease and pneumonia. He is growing Klebsiella pneumoniae in the sputum. He has had previous stroke, hypertension. 3. He has had an episode of paroxysmal supraventricular tachycardia vs. paroxysmal atrial fibrillation which has responded to Barry- Synephrine and amiodarone. RECOMMENDATIONS: At this point in time, we will continue present course of action. We will follow him, and further instructions will depend on his clinical course. For the time being, I would continue amiodarone per protocol. Of note, his echocardiogram from 05/22/2017 showed normal left ventricular systolic function. Thank you for the opportunity to participate in his evaluation. cc: Elizeer Salcido MD [facility]
[2017-05-28] MEDS: MAXIPIME 2 GM/NS 2 GM/100 ML IVPB IV SCH ×2 (10:27→23:14)
[2017-05-28] MEDS: SOLU-MEDROL IV SCH ×2 (10:27→22:00)
[2017-05-28] MEDS: PEPCID IV SCH ×2 (10:28→23:14)
[2017-05-28] MEDS: DIPRIVAN 1% 1,000 MG/100 ML BOTTLE IV SCH ×3 (10:28→20:28)
[2017-05-28] MEDS ORDERED: CORDARONE 540 MG in D5W 289.2 ML IV ONE (12:30)
--- NOTE | 2017-05-28 17:07 | PROGRESS NOTE ---
DATE: 05/28/2017 SUBJECTIVE: The patient remains sedated on the ventilator. No acute events noted overnight. OBJECTIVE: Vital Signs: Temperature 98.5 degrees, blood pressure 131/41, heart rate 68, respirations 19, O2 saturations 98% on the mechanical ventilator. General: This is a chronically ill-appearing, elderly male, lying in bed, in no acute distress. Heart: S1, S2 normal. Regular rate. Lungs: Equal air entry bilaterally. No crackles, no rales. Abdomen: Positive bowel sounds. Soft, nontender, nondistended. Extremities: The patient has 3+ edema in the right upper extremity with an ulceration on the right forearm. Neurologic: The patient is sedated. LABS: White blood cell count 6.3, hemoglobin 7.8, hematocrit 24, platelets 67,000. Sodium 141, potassium 4.6, chloride 105, CO2 25, BUN 93, creatinine 1.3, glucose 178, calcium 8.2. AST 104, ALT 117. Albumin 2.4. IMAGING: Chest x-ray shows there is a little infiltrate and atelectasis. ASSESSMENT AND PLAN: 1. Acute hypercapnic respiratory failure. Continue with ventilatory support. Pulmonary is following. 2. Aspiration pneumonia secondary to Klebsiella. Continue on the current IV antibiotic regimen. 3. Urinary tract infection secondary to Morganella. Continue on IV antibiotic therapy. 4. Paroxysmal atrial fibrillation. Cardiology is following. 5. Acute kidney injury. The patient's creatinine continues to improve. However, the BUN continues to rise. We will continue to monitor. 6. Severe protein calorie malnutrition. Continue on tube feeds. 7. Thrombocytopenia. The patient's platelet count is a little bit lower today. This may be secondary to sepsis. The heparin-induced thrombocytopenia antibody was noted to be negative. 8. Extensive right upper extremity deep vein thrombosis. We will start the patient on full dose Lovenox. 9. Right forearm wound. Continue with wound care. We will consult General Surgery tomorrow for further recommendations. 10. Status post left hip arthroplasty secondary to a left hip dislocation. Stable. 11. Anemia of chronic disease. The patient's hemoglobin and hematocrit is low but stable. We will continue to monitor this closely. 12. Transaminitis. This may be secondary to sepsis. The patient may benefit from an abdominal ultrasound. The hepatitis profile was negative. 13. Gastrointestinal prophylaxis. Continue on IV Pepcid. 14. The patient remains critically ill with a high risk of mortality. cc: Karin Sullivan MD
[2017-05-28] MEDS: ALBUMIN 25% IV SCH (18:19)
[2017-05-28] MEDS: LOVENOX SUBQ SCH (18:19)
[2017-05-29] MEDS: DIPRIVAN 1% 1,000 MG/100 ML BOTTLE IV SCH ×5 (01:36→20:35)
[2017-05-29] MEDS: LOPRESSOR PO SCH ×3 (01:41→21:32)
[2017-05-29] MEDS: DUONEB (A & A) INH SCH ×6 (03:52→23:34)
[2017-05-29] MEDS: LOVENOX SUBQ SCH ×2 (04:53→15:25)
[2017-05-29 05:31] LABS: ALLEN TEST YES; BE -1.6 mmoll (-3.0-3.0); BLOOD TYPE ARTERIAL; DRAW SITE R RADIAL; METHB 1.3 % (0.0-1.5); O2(CT) 10.1 mL/dL (15.0-23.0); PCO2(98.6) 36 mmHg (35-45); PO2(98.6) 100 mmHg (60-100); SAMPLE BLOOD; SAO2 98.9 % (95.0-100.0); SRATE 10 BPM; THB 7.3 g/dL (11.5-17.4); TVOL 550 mL; pH(98.6) 7.41 (7.35-7.45)
[2017-05-29 05:32] LABS: MODALITY VENTILATOR
[2017-05-29 06:33] LABS: INR 1.06; PROTIME 11.2 Seconds (9.2-11.7); PTT 27.5 Seconds (22.0-36.0)
[2017-05-29 06:37] LABS: HEMATOCRIT 22.3 % (42.0-52.0); MCH 29.7 PG (27-31); MCHC 31.4 g/dL (33-37); MCV 94.5 FL (81-99); MPV 12.1 FL (7.4-10.4); RBC 2.36 XMIL (4.7-6.1)
[2017-05-29 06:41] LABS: CALCIUM 8.4 mg/dL (8.8-10.2); POTASSIUM 4.2 mmol/L (3.5-5.1); TOTAL BILIRUBIN 0.43 mg/dL (0.20-1.00); TOTAL PROTEIN 5.5 g/dL (6.3-8.3)
--- NOTE | 2017-05-29 07:01 | Diag Imaging Result Doc PS360 ---
EXAM: CHEST-PORTABLE HISTORY: respiratory failure TECHNIQUE: Portable COMPARISON: 05/28/2017 FINDINGS: The endotracheal tube remains in good position. Nasogastric tube overlies the esophagus and stomach. No change in the right-sided PICC line. There are bilateral basilar infiltrates with atelectasis as well as small pleural effusions. The overall appearance of the chest is similar to that of the prior exam. IMPRESSION: No interval improvement. Electronically signed by Santino Leal 05/29/2017 6:59 AM
[2017-05-29] MEDS ORDERED: LASIX IV SCH (08:30)
[2017-05-29] MEDS ORDERED: LOVENOX SUBQ SCH (09:00)
[2017-05-29] MEDS: SOLU-MEDROL IV SCH ×2 (10:03→21:33)
[2017-05-29] MEDS: ALBUMIN 25% IV SCH (10:03)
[2017-05-29] MEDS: MAXIPIME 2 GM/NS 2 GM/100 ML IVPB IV SCH ×2 (10:04→23:26)
[2017-05-29] MEDS: METANX PO SCH (10:04)
[2017-05-29] MEDS: SANTYL OINT TOP SCH (10:04)
[2017-05-29] MEDS: MYCOSTATIN POWDER TOP SCH (10:04)
[2017-05-29] MEDS: D5 NS 1,000 ML IV SCH ×3 (10:05→17:27)
[2017-05-29] MEDS: PEPCID IV SCH ×2 (10:05→23:26)
--- NOTE | 2017-05-29 11:35 | OPERATIVE NOTE ---
PROCEDURE DATE: 05/29/2017 PREOPERATIVE DIAGNOSIS: Chronic wound to the right forearm. POSTOPERATIVE DIAGNOSIS: Chronic wound to the right forearm. PROCEDURES PERFORMED: Incision and debridement of skin, subcutaneous tissue measuring 20 square cm of the right forearm. SURGEON: Trev Boggs MD. CHIEF OPERATING ENGINEER: None. ANESTHESIA: None. The patient is currently sedated on the ventilator. HISTORY OF PRESENT ILLNESS: A 76-year-old, male with a chronic wound to his right forearm that had been treated with Santyl without much improvement. I was asked to evaluate for debridement. DESCRIPTION OF PROCEDURE: The patient remained in his bed at the bedside in the ICU. His right arm was noted. The wound was approximately 4 x 5 cm. We elevated some of the whitish color necrotic skin with a combination of a scalpel and scissors. I was able to sharply excise and remove approximately 20 sq cm of skin and subcutaneous tissue down to healthy tissue. I did not debride any further given his thrombocytopenia. We placed Santyl and a sterile dressing. The patient tolerated the procedure well. We will continue to monitor. cc: Trev Boggs MD
--- NOTE | 2017-05-29 11:39 | CONSULTATION ---
DATE OF CONSULTATION: 05/29/2017 REQUESTING PHYSICIAN: Edson Soriano MD REASON FOR CONSULTATION: Chronic wound to his right forearm. HISTORY OF PRESENT ILLNESS: A 76-year-old male with multiple medical comorbidities, was initially admitted on 05/21/2017 and underwent closed reduction of the left hip displacement/dislocation. He apparently has been on the ventilator since then because of his multiple medical problems. It was noted that he had a wound to his right forearm, at the level of the wrist, on the dorsal aspect of the arm. It measured 4 x 5 cm. History of how long this wound has been there or how it initially presented, the patient is sedated and unable to give further information. There is no family members at the bedside. Reviewed his notes from his admission. PAST MEDICAL HISTORY: Severe chronic obstructive pulmonary disease with dyspnea, hypertension, gastroesophageal reflux disease, history of stroke, history of heart failure, and peptic ulcer disease. PAST SURGICAL HISTORY: Includes left knee arthroplasty, partial gastrectomy, previous cholecystectomy, previous right knee scope. MEDICATIONS: MAR reviewed. ALLERGIES: None known. SOCIAL: Reviewed and patient apparently lives alone. Former smoker, but had a significant pack- year history. FAMILY HISTORY: Positive for heart disease, hypertension, diabetes, head and neck cancer, and dyslipidemia. REVIEW OF SYSTEMS: Unable to obtain secondary to patient's mental status. Reviewed from previous dictations. PHYSICAL EXAMINATION: Vital Signs: The patient is currently afebrile. His vital signs have been stable. He is on the ventilator sedated. General Examination: Sedated on the ventilator. HEENT: Normocephalic, atraumatic. Pupils equal, round, react to light. Mucous membranes moist. Oropharynx benign. ET tube in place. Lungs: Coarse breath sounds from the airway from the ventilator noted. Cardiovascular: Regular rate and rhythm. Abdomen: Soft, nontender, nondistended. Extremities: There is a 4 x 5 cm lesion to the dorsal aspect of the right forearm, which I debrided at the bedside. Please see dictation. Vascular: All extremities perfused. Neurologic: Sedated on the ventilator. Skin: Lesion is noted above. LABORATORY: White blood cell count yesterday was 6, hematocrit 24, platelet count 67,000. Remainder of labs reviewed. ASSESSMENT/PLAN: A 76-year-old, male with multiple medical comorbidities and acute respiratory failure, with a chronic wound to his right arm. 1. Multiple medical comorbidities, currently being managed by the hospitalist service. 2. Acute respiratory failure. At this time, being managed by Pulmonary. 3. Right wound on his forearm. At this time I debrided at the bedside. Please see dictation. I agree with continuing Santyl for right now and local wound care. cc: Trev Boggs MD
[2017-05-29] MEDS ORDERED: NS 250 ML ONE (11:47)
[2017-05-29] MEDS ORDERED: NS 500 ML ONE (12:03)
--- NOTE | 2017-05-29 12:53 | PROGRESS NOTE ---
DATE: 05/29/2017 SUBJECTIVE: Patient currently sedated, intubated. OBJECTIVE: Vital Signs: Temperature 98.6 degrees, pulse 65, respiratory rate 19, blood pressure 134/43. Intake 3.7 L. Output 1.2 L. General: This is an elderly gentleman resting in bed. He is currently sedated and mechanically ventilated. HEENT: Normocephalic, atraumatic. Orally intubated. Neck: Supple. Trachea midline. Trace JVD. Cardiovascular: Regular rate and rhythm. He is on amiodarone. Pulmonary: Equal excursion. He has rhonchi bilaterally. Abdomen: Soft. Hypoactive bowel sounds. He has an NG tube with tube feeding infusing. Extremities: Continues with dependent edema bilateral upper and lower extremities with right greater than left. His right upper extremity had a debridement and has a new dressing on. Integumentary: Skin is warm and dry otherwise. LAB DATA: WBC of 6.4, hemoglobin 7.0. Sodium 143, potassium 4.2, CO2 23, BUN 87, creatinine 1.3. ASSESSMENT AND PLAN: 1. Acute kidney injury secondary to outlet obstruction. Renal function has remained stable. No change. Continue to monitor. 2. Respiratory failure. Followed by pulmonary and primary. He remains on the vent. 3. Electrolytes, acid-base balance, anemia. Anemia has been stable. Followed by primary. 4. Status post left hip arthroplasty and reduction. Followed by surgery. 5. Fluid volume. He is quite positive, although pulmonary has not stated that they are having difficulty ventilating because of it. His urine output has been adequate although he is in positive territory. His TPN has been discontinued and so his fluid volumes on the input may start improving. Dictated by MARGARITA Rodriguez for Watson Kahn MD cc: Watson Kahn MD
--- NOTE | 2017-05-29 16:24 | Diag Imaging Result Doc PS360 ---
EXAM: US ABDOMEN-COMPLETE HISTORY: Elevated LFTs TECHNIQUE: COMPARISON: CT from 05/21/2017 FINDINGS: The pancreas is obscured. Normal aorta and inferior vena cava. There may be mild fatty infiltration of the liver. No focal hepatic abnormality. There is a small right renal cyst. No hydronephrosis. There is a small right-sided pleural effusion. The gallbladder is not present. The common bile duct measures 7 mm. Normal left kidney. No hydronephrosis. Spleen is mildly enlarged measuring 15.3 cm. IMPRESSION: 1.Fluid on the right believed to represent a pleural effusion rather than a small amount of ascites 2.Mild splenomegaly 3.Cholecystectomy 4.Possible mild fatty infiltration of the liver Electronically signed by Santino Leal 05/29/2017 4:22 PM
--- NOTE | 2017-05-29 16:46 | Diag Imaging Result Doc PS360 ---
EXAM: CHEST-PORTABLE HISTORY: Left Arm PICC placement TECHNIQUE: Semiupright portable AP COMPARISON: Compared to film taken at 6:00 AM FINDINGS: Interval placement of a left-sided PICC line. Tip overlies the distal superior vena cava/right atrium. There has been no other interval change. IMPRESSION: Left-sided PICC line in good position. Electronically signed by Santino Lela 05/29/2017 4:44 PM
--- NOTE | 2017-05-29 18:26 | PROGRESS NOTE ---
DATE: 05/29/2017 CHIEF COMPLAINT: Shortness of breath, irregular heartbeat. SUBJECTIVE: Mr. Escoto remains intubated. His rhythm has remained sinus for the past 24 hours. He is sedated. He is on the ventilator. OBJECTIVE: Vital signs: Blood pressure is 134/43, pulse 64, temperature 97.6, respirations 10. General: He is sedated, breathing with the vent. He is pale. HEENT: Unremarkable. Chest: Rhonchi bilaterally. Cardiac: Heart sounds are regular and rhythmic. No gallop or murmur. Abdomen : Nontender, nondistended. Bowel sounds diminished. Extremities: Pulses are palpable in the right posterior tibialis and left dorsalis pedis. No lesions noted on the legs. He has an open wound on the dorsal aspect of the right forearm which is being debrided by Dr. Boggs this morning. It appears to be a full-thickness lesion. LABORATORY DATA: Today hemoglobin is 7 g, white count 6470, hematocrit 22.3. Pro-time and PTT normal. His blood gases on a 45% FiO2 show pO2 is 100, pCO2 is 86, pH 7.41. Sodium 143, potassium 4.2, BUN 87, creatinine 1.3, AST 86, ALT 113. IMPRESSION: 1. Patient who developed a dislocation of the left hip after a fall. 2. Respiratory failure, chronic obstructive pulmonary disease exacerbation, suspect pneumonia. Chest x-ray done today is reported as no interval improvement with bilateral basilar infiltrates with atelectasis and pleural effusions. He is growing Klebsiella pneumoniae in the sputum. 3. Urinary tract infection growing Morganella morganii. 4. Paroxysmal supraventricular tachycardia versus paroxysmal atrial fibrillation. He is in sinus rhythm now. 5. Reported history of heart failure with preserved ejection fraction. 6. History of hypertension. 7. History of hyperlipidemia. RECOMMENDATIONS: At this point in time, we have done an EKG that shows sinus rhythm. He has maintained sinus rhythm for the past 36 hours. We will go ahead and switch him over to oral amiodarone, we will stop the amiodarone drip and we will continue to monitor him. Cardiac burroughs, no major changes at this time. cc: MD SAM Fu
[2017-05-29] MEDS: CORDARONE PO SCH (21:33)
[2017-05-30] MEDS: LOPRESSOR PO SCH ×4 (02:28→20:20)
[2017-05-30] MEDS: DUONEB (A & A) INH SCH ×6 (03:34→23:18)
[2017-05-30] MEDS: D5 NS 1,000 ML IV SCH (04:38)
[2017-05-30] MEDS: LOVENOX SUBQ SCH ×2 (04:38→15:27)
[2017-05-30] MEDS: DIPRIVAN 1% 1,000 MG/100 ML BOTTLE IV SCH ×6 (04:38→20:56)
[2017-05-30 04:50] LABS: ALLEN TEST YES; BE -3.8 mmoll (-3.0-3.0); BLOOD TYPE ARTERIAL; DRAW SITE R RADIAL; METHB 1.1 % (0.0-1.5); O2(CT) 12.7 mL/dL (15.0-23.0); PCO2(98.6) 39 mmHg (35-45); PO2(98.6) 116 mmHg (60-100); SAMPLE BLOOD; SAO2 100.2 % (95.0-100.0); SRATE 10 BPM; THB 9.2 g/dL (11.5-17.4); TVOL 550 mL; pH(98.6) 7.35 (7.35-7.45)
[2017-05-30 04:52] LABS: MODALITY VENTILATOR
--- NOTE | 2017-05-30 04:58 | PROGRESS NOTE ---
DATE: 05/29/2017 SUBJECTIVE: The patient remains sedated on the ventilator. OBJECTIVE: Vital Signs: Temperature 98 degrees, blood pressure 153/51, heart rate 68, respirations 16, O2 saturations 96% on mechanical ventilator. General: This is a elderly male lying in bed in no acute distress. Head: Normocephalic, atraumatic. Heart: S1, S2. Normal. Regular rate and rhythm. Lungs: Coarse breath sounds. No crackles. No rales. Abdomen: Positive bowel sounds. Soft, nontender, nondistended. Extremities: The patient has swelling involving the right upper extremity as well as a wound on his right forearm that was debrided today. Neurologic: The patient is sedated. LABS: White blood cell count 6.4, hemoglobin 7, hematocrit 22, platelets 83,000, INR 1.0. Sodium 143, potassium 4.2, chloride 109, CO2 23, BUN 87, creatinine 1.3, glucose 179, calcium 8.4, AST 86, ALT 113, alkaline phosphatase 110, albumin 3. ASSESSMENT AND PLAN: 1. Acute hypercapnic respiratory failure. The patient remains on ventilatory support and on sedation. Vent management as per the heating worker. 2. Aspiration pneumonia secondary to Klebsiella. Continue on IV antibiotic therapy. 3. Urinary tract infection secondary to Morganella. Continue on the current IV antibiotic regimen. 4. Paroxysmal atrial fibrillation. The patient is currently rate controlled. 5. Severe protein calorie malnutrition. Continue on tube feeds. 6. Anemia. Will transfuse 2 units of packed red blood cells today. 7. Acute kidney injury. Slowly improving. Will continue to monitor closely. 8. Extensive right upper extremity deep vein thrombosis. The patient is currently on full dose Lovenox. 9. Thrombocytopenia. The patient's platelet count is slowly improving. We will monitor this closely since the patient is on full-dose Lovenox. 10. Status post left hip arthroplasty secondary to a left hip dislocation. Stable. 11. Right forearm wound status post debridement. General Surgery is following. Continue with wound care. 12. Transaminitis. Slowly improving. Will continue to monitor this closely. 13. Gastrointestinal prophylaxis. Continue on IV Pepcid. 14. The patient remains critically ill with a high risk of mortality. cc: Karin Sullivan MD
[2017-05-30 06:36] LABS: HEMATOCRIT 28.2 % (42.0-52.0); HEMOGLOBIN 9.1 g/dL (14.0-18.0); MCH 30.7 PG (27-31); MCHC 32.3 g/dL (33-37); MCV 95.3 FL (81-99); MPV 12.3 FL (7.4-10.4); RBC 2.96 XMIL (4.7-6.1)
[2017-05-30 07:00] LABS: ALBUMIN 2.9 g/dL (3.5-5.0); CALCIUM 7.9 mg/dL (8.8-10.2); POTASSIUM 4.3 mmol/L (3.5-5.1); TOTAL BILIRUBIN 0.47 mg/dL (0.20-1.00); TOTAL PROTEIN 5.3 g/dL (6.3-8.3)
--- NOTE | 2017-05-30 07:19 | Diag Imaging Result Doc PS360 ---
CHEST-PORTABLE - 05/30/2017 INDICATION: respiratory failure TECHNIQUE: COMPARISON: 05/29/2017 FINDINGS: Support lines and tubes are stable. Lungs remain hyperexpanded. There is slight worsening in the bibasilar airspace opacities compatible with any mixture of infiltrate, atelectasis or effusion. Stable mild cardiomegaly and pulmonary vascular congestion. IMPRESSION: Slight worsening in the bibasilar airspace opacities. Otherwise no change from prior. Electronically signed by Parker Amador 05/30/2017 7:17 AM
--- NOTE | 2017-05-30 07:36 | PROGRESS NOTE ---
DATE: 05/30/2017 SUBJECTIVE: No major changes per the nursing staff. OBJECTIVE: Vital Signs: Patient is currently afebrile. His vital signs are stable. General: Sedated on the ventilator. Cardiovascular: Regular rate and rhythm. Lungs: Referred airway noises. Abdomen: Soft, nontender, nondistended. Extremities: Right upper extremity still somewhat edematous. The wound itself is still sleeping, although the area appears to be improving. There is some slough noted, but not enough at this time to have surgical debridement. LABORATORY STUDIES: ABG reviewed. ASSESSMENT AND PLAN: A 76-year-old male with multiple medical comorbidities, now with a chronic wound to his right upper extremity. 1. Multiple medical comorbidities. At this time, being managed by the hospitalist service. 2. Right wound on his forearm. At this time, I would like to add Drawtex to the wound, continue with Santyl. Need to keep the arm elevated. He does have a DVT, which is likely the cause of the swelling and the leakage of the serous fluid. We will continue local wound care. cc: Trev Boggs MD
[2017-05-30] MEDS: CORDARONE PO SCH ×2 (09:00→20:20)
[2017-05-30] MEDS: MYCOSTATIN POWDER TOP SCH (09:00)
[2017-05-30] MEDS: METANX PO SCH (09:15)
[2017-05-30] MEDS: ALBUMIN 25% IV SCH (09:15)
--- NOTE | 2017-05-30 10:40 | EKG Report ---
Test Performed on : 05/28/2017 05:56:51 AM Test Reason : tachycardia Blood Pressure : / mmHG Vent. Rate : 159 BPM Atrial Rate : 144 BPM P-R Int : 000 ms QRS Dur : 162 ms QT Int : 288 ms P-R-T Axes : 000 030 020 degrees QTc Int : 468 ms Wide QRS tachycardia. Nonspecific intraventricular block Abnormal ECG When compared with ECG of 22-MAY-2017 09:11, Wide QRS tachycardia. has replaced Sinus rhythm. Vent. rate has increased BY 73 BPM Confirmed by Kassandra Florence MD ([id number]) on 05/31/2017 12:25:00 PM
[2017-05-30] MEDS: MAXIPIME 2 GM/NS 2 GM/100 ML IVPB IV SCH ×2 (10:53→22:02)
[2017-05-30] MEDS: SOLU-MEDROL IV SCH ×2 (10:54→21:03)
[2017-05-30] MEDS: PEPCID IV SCH ×2 (11:10→22:02)
[2017-05-30] MEDS ORDERED: CALMOSEPTINE OINTMENT TOP PRN (11:22)
--- NOTE | 2017-05-30 16:18 | PROGRESS NOTE ---
DATE: 05/30/2017 SUBJECTIVE: Patient resting in bed. He is currently sedated and mechanically ventilated. OBJECTIVE: Vital Signs: Temperature 98 degrees, pulse 60, respiratory rate 16 , blood pressure 142/43. Intake 4.2 L. Output 1.3 L. General: This is an elderly gentleman resting in bed. Currently mechanically ventilated. He remains sedated. HEENT: Normocephalic, atraumatic. Orally intubated. Neck: Supple. Trachea midline. Cardiovascular: Regular rate and rhythm. No murmur noted. Pulmonary: Equal excursion. He continues with some rhonchi bilaterally. He remains mechanically ventilated. Abdomen: Soft. Hypoactive bowel sounds. He has an NG tube with tube feeding infusing. Extremities: He continues with dependent edema bilaterally, upper and lower extremities. Integumentary: Skin is warm and dry. He has ecchymoses and some dressings noted to areas where debridement was done. LAB DATA: WBC of 7.0, hemoglobin 9.1. Sodium 143, potassium 4.3, CO2 21, BUN 82, creatinine 1.2. ASSESSMENT AND PLAN: 1. Acute kidney injury secondary to outlet obstruction. Renal functions remain stable. His BUN continues to improve. 2. Respiratory failure, followed by primary and pulmonary. Remains ventilated. 3. Electrolytes, acid-base balance. These are acceptable. 4. Status post left hip arthroplasty reduction. Followed by surgery. 5. Fluid volume. He is at least 15 L positive. Urine output is excellent. He just has more infusing than he is putting out. He does have some D5 normal saline that is going. Will see if we can stop that. His TPN was discontinued. Will see if we reduce the amount of IV fluids infusing. So far, pulmonary he has not had issues with ventilating. Continue to follow closely. Seen, data reviewed, discussed with Chantel Sprague on 05/30/17. I agree with the above assessment and plan of care. rg Dictated by MARGARITA Rodriguez for Watson Kahn MD cc: Watson Kahn MD [facility]
[2017-05-30] MEDS: LASIX IV SCH (19:28)
[2017-05-31] MEDS: DIPRIVAN 1% 1,000 MG/100 ML BOTTLE IV SCH ×8 (00:01→22:01)
[2017-05-31] MEDS: LASIX IV SCH ×4 (02:05→20:41)
[2017-05-31] MEDS: LOPRESSOR PO SCH ×4 (02:05→20:33)
[2017-05-31] MEDS: LOVENOX SUBQ SCH ×2 (03:17→15:20)
[2017-05-31] MEDS: DUONEB (A & A) INH SCH ×6 (03:31→23:12)
--- NOTE | 2017-05-31 03:43 | PROGRESS NOTE ---
DATE: 05/30/2017 SUBJECTIVE: The patient remains sedated and intubated on the ventilator. No acute events noted overnight. OBJECTIVE: Vital Signs: Temperature 97.9 degrees, blood pressure 158/60, heart rate 74, respirations 20, O2 saturations 98% on the mechanical ventilator. General: This is an elderly male lying sedated on the ventilator. Head: Normocephalic, atraumatic. Heart: S1, S2. Normal. Lungs: Coarse breath sounds bilaterally. Abdomen: Positive bowel sounds, soft, nontender, nondistended. Extremities: The patient has 2 to 3+ edema in the right upper extremity. The patient also has a right forearm wound that is wrapped in a clean, dry dressing. Neuro: The patient is sedated. LABS: White blood cell count 7, hemoglobin 9.1, hematocrit 28, platelets 88,000. Sodium 143, potassium 4.3, chloride 110, CO2 21, BUN 82, creatinine 1.2, glucose 180, AST 64, ALT 87. ASSESSMENT AND PLAN: 1. Acute hypercapnic respiratory failure. Continue with ventilatory support. Further management as per the machine chain maker. 2. Aspiration pneumonia secondary to Klebsiella. Continue on antibiotic therapy. 3. Urinary tract infection secondary to Morganella. Continue on antibiotic therapy. 4. Paroxysmal atrial fibrillation. Management as per the cricket coach. 5. Extensive right upper extremity deep vein thrombosis. Continue on full-dose Lovenox. 6. Right forearm wound status post debridement. Continue with wound care and antibiotic therapy. 7. Thrombocytopenia. Slightly improved. Will continue to monitor this closely. 8. Acute kidney injury. Improving slowly. 9. Anemia. Improved. The patient received 2 units of packed red blood cells yesterday. 10. Protein calorie malnutrition. Continue with tube feeds. 11. Transaminitis. Improved. 12. Status post left hip arthroplasty secondary to left hip dislocation. Stable. 13. Gastrointestinal prophylaxis. Continue on IV Pepcid. cc: Karin Sullivan MD
[2017-05-31 04:46] LABS: ALLEN TEST YES; BLOOD TYPE ARTERIAL; DRAW SITE R RADIAL; MODALITY VENTILATOR; O2(CT) 12.8 mL/dL (15.0-23.0); PCO2(98.6) 40 mmHg (35-45); PO2(98.6) 83 mmHg (60-100); SAMPLE BLOOD; SAO2 99.1 % (95.0-100.0); SRATE 10 BPM; THB 9.4 g/dL (11.5-17.4); TVOL 550 mL; pH(98.6) 7.37 (7.35-7.45)
[2017-05-31 04:57] LABS: HEMATOCRIT 28.6 % (42.0-52.0); HEMOGLOBIN 9.2 g/dL (14.0-18.0); MCH 29.7 PG (27-31); MCHC 32.2 g/dL (33-37); MCV 92.3 FL (81-99); MPV 11.9 FL (7.4-10.4); RBC 3.1 XMIL (4.7-6.1)
[2017-05-31 05:14] LABS: ALBUMIN 3.1 g/dL (3.5-5.0); CALCIUM 8.3 mg/dL (8.8-10.2); POTASSIUM 4.2 mmol/L (3.5-5.1); TOTAL BILIRUBIN 0.62 mg/dL (0.20-1.00); TOTAL PROTEIN 5.4 g/dL (6.3-8.3)
--- NOTE | 2017-05-31 05:34 | PROGRESS NOTE ---
DATE: 05/30/2017 PRESENT ILLNESS: The patient has a Klebsiella pneumoniae and Morganella urinary tract infection. MEDICATIONS: This is the 5th day of treatment with cefepime as a single agent. PHYSICAL EXAMINATION: Vital Signs: Temperature is 98.6 degrees, pulse 61, respirations 16, blood pressure 159/50. Generally: This is an ill-appearing, elderly male. He is intubated and sedated. Lungs: Clear to auscultation. Cardiovascular: Regular heart rate. Abdomen: Soft and nontender. Extremities: The patient's right arm has a dressing on it. The dressing is intact. The patient's left arm has a PICC in it. The site is not erythematous or swollen. LAB AND X-RAY: There is no new x-ray for today. Lab-burroughs, the patient's CBC shows a white count of 7050, hemoglobin 9.1, and platelet count 88,000. Blood gases show a pH of 7.35, PO2 of 116, and a pCO2 of 39. Creatinine is 1.2. The GFR is 59. The ALT is 87. Patient's immunoglobulin G level is slightly decreased at 553. The IgA level is normal. ASSESSMENT AND PLAN: I plan to continue cefepime to treat the patient's pneumonia and urinary tract infection. He does have a slightly decreased IgG at 553. At this time, I do not think that it is much of a morbidity for the patient. I would plan to repeat the level and to see if it stays the same, increases, or decreases. COMORBIDITIES: Include alcohol abuse, COPD, gastroesophageal reflux disease, congestive heart failure, and possible decreased IgG level. cc: Thor Fields MD
--- NOTE | 2017-05-31 07:19 | Diag Imaging Result Doc PS360 ---
EXAM: CHEST-PORTABLE HISTORY: respiratory failure TECHNIQUE: AP portable at 0500 COMMENT: There is alveolar opacification in the lower lobes bilaterally. There is bilateral pleural effusion more so on the right than the left. The endotracheal tube and left PICC line remain in place. Overall the appearance of the chest has not changed significantly since 05/30/2017. IMPRESSION: Pulmonary edema and/or pneumonia with pleural effusions, stable. Electronically signed by Tony Anne 05/31/2017 7:17 AM
[2017-05-31] MEDS: METANX PO SCH (08:44)
[2017-05-31] MEDS: CORDARONE PO SCH ×2 (08:44→20:33)
--- NOTE | 2017-05-31 08:46 | Diag Imaging Result Doc PS360 ---
EXAM: XRAY HIP UNILATERAL LT HISTORY: s/p hip reduction TECHNIQUE: Left hip two views COMMENT: The hip prosthesis is normally aligned. There is no evidence of fracture. IMPRESSION: Reduction of prosthetic dislocation. Electronically signed by Tony Anne 05/31/2017 8:44 AM
[2017-05-31] MEDS: SANTYL OINT TOP SCH (09:00)
[2017-05-31] MEDS: MYCOSTATIN POWDER TOP SCH (09:00)
[2017-05-31] MEDS: MAXIPIME 2 GM/NS 2 GM/100 ML IVPB IV SCH ×2 (11:20→22:01)
[2017-05-31] MEDS: SOLU-MEDROL IV SCH ×2 (11:20→22:00)
[2017-05-31] MEDS: PEPCID IV SCH ×2 (11:20→22:01)
--- NOTE | 2017-05-31 13:55 | PROGRESS NOTE ---
DATE: 05/31/2017 SUBJECTIVE: Reviewed nurses notes. No major changes. I also reviewed the wound care nurse's notes. OBJECTIVE: Vital Signs: Patient is currently afebrile. His vital signs are stable. General Exam: Sedated on the ventilator. Cardiovascular: Regular rate and rhythm. Lungs: Referred airway noises. Abdomen: Soft, nontender, nondistended. Extremities: Right upper extremity still somewhat edematous. The wound itself still has a dressing in place. Still seems to be saturating the dressing. LABORATORY: Reviewed from this morning. ASSESSMENT/PLAN: A 76-year-old, male with multiple medical comorbidities now with a chronic wound to his right upper extremity. 1. Multiple medical comorbidities. At this time, being managed by the hospitalist service. 2. Right forearm wound. At this time, continue local wound care. I will periodically check on it to evaluate for need for debridement. I appreciate the consult. I will continue to follow with you. cc: Trev Boggs MD
[2017-05-31] MEDS: MORPHINE IV PRN (19:35)
--- NOTE | 2017-05-31 20:07 | PROGRESS NOTE ---
DATE: 05/31/2017 SUBJECTIVE: The patient is currently sedated on the ventilator. No acute events noted overnight. OBJECTIVE: Vital Signs: Temperature 98.5 degrees, blood pressure 169/49, heart rate 77, respirations 23, O2 saturation 93% on the mechanical ventilator. General: This is a chronically ill-appearing, elderly male, sedated on the ventilator. Head: Normocephalic, atraumatic. Neck: Supple. Heart: S1, S2. Normal. Lungs: Equal air entry bilaterally. No crackles, no rales. Abdomen: Positive bowel sounds. Soft, nontender, nondistended. Extremities: The right upper extremity is swollen. There is a dressing on the right forearm that is clean, dry and intact. Neurologic: The patient remains sedated. LABORATORY: White blood cell count 7.2, hemoglobin 9.2, hematocrit 28, platelets 116,000. Sodium 145, potassium 4.2, chloride 110. CO2 22, BUN 87, creatinine 1.3, glucose 147, AST 86, alkaline phosphatase 131, ALT 103, albumin 3.1. Calcium 8.3. IMAGING: Chest x-ray: Pulmonary edema with pleural effusions. ASSESSMENT AND PLAN: 1. Acute hypercapnic respiratory failure. The patient remains on the ventilator on sedation. Management as per the front end software developer. 2. Acute pulmonary edema. The patient is on lasix. 3. Aspiration pneumonia secondary to Klebsiella. Continue with IV antibiotic therapy. 4. Urinary tract infection secondary to Morganella. Continue on IV antibiotic therapy. 5. Paroxysmal atrial fibrillation. 6. Extensive right upper extremity deep vein thrombosis. Continue on Lovenox. 7. Thrombocytopenia, improved. 8. Acute kidney injury, stable. 9. Right forearm wound status post debridement. Continue with wound care. 10. Protein-calorie malnutrition. Continue on tube feeds. 11. Status post left hip arthroplasty secondary to left hip dislocation. Stable. 12. Anemia. The patient's hemoglobin and hematocrit are stable. 13. Transaminitis. The patient's LFTs are a little bit higher today. We will continue to monitor this closely. 14. Gastrointestinal prophylaxis. Continue on Pepcid. 15. The patient remains critically ill. cc: Karin Sullivan MD [facility]
--- NOTE | 2017-05-31 22:08 | PROGRESS NOTE ---
DATE: 05/31/2017 SUBJECTIVE: No complaints. Remains on the vent. OBJECTIVE: Vital Signs: Blood pressure 169/49, heart rate 77, respirations 25, afebrile. Intake 2.3 L. Output 2.7 L. General: No acute distress. Skin: Warm and dry. Conjunctivae are pink. Neck: Neck veins are distended. Heart: Regular. Lungs: Have equal breath sounds. Few crackles. Abdomen: Soft, nontender. Bowel sounds present. Extremities: Have 2+ edema. No clubbing or cyanosis. IMPRESSION: 1. Acute kidney injury. No change. 2. Volume overload. Receiving furosemide. cc: Watson Kahn MD
--- NOTE | 2017-05-31 22:17 | PROGRESS NOTE ---
DATE: 05/31/2017 PRESENT ILLNESS: The patient has a Klebsiella pneumonia and a Morganella urinary tract infection. MEDICATIONS: The patient has been receiving meropenem now for 6 days. PHYSICAL EXAMINATION: Vital Signs: Temperature is 98.5 degrees, pulse 77, respirations 25, blood pressure 169/49. General: This is an obese, elderly male. He is intubated and sedated. Lungs: Bilateral rhonchi. Cardiovascular: Regular heart rate. Abdomen: Soft and nontender. Neurologic: The patient is as mentioned above sedated. He did not make any spontaneous movements. Integument: No rash noted. LABS AND X-RAY: Chest x-ray shows increase in bibasilar infiltrates. The patient's left hip x- ray shows no dislocation. The patient's CBC shows a white count of 7240, hemoglobin 9.2 and platelet count 116,000. Blood gases show a pH of 7.37, a PO2 of 83, a pCO2 of 40. Patient's creatinine is 1.3. The GFR is 54. The patient's IgG level is slightly reduced at 553. ASSESSMENT AND PLAN: Patient has pneumonia and urinary tract infection. The plan would be to continue his antibiotics. As regarding his low IgG level, for now I will hold off giving gammaglobulin but recheck the level and if it continues to fall then I will give the patient a dose of immunoglobulin intravenously. COMORBIDITIES: Alcoholism,COPD, gastroesophageal reflux disease, congestive heart failure, low IgG level. cc: Thor Fields MD MTDD
--- NOTE | 2017-06-01 01:06 | PROGRESS NOTE ---
DATE: 05/31/2017 SUBJECTIVE: Patient continues on ventilator and sedated. OBJECTIVE: Vital Signs: Blood pressure 169/49, heart rate 77 and regular with ECG monitor showing sinus rhythm. Chest: Auscultation of the chest reveals coarse breath sounds bilaterally. Cardiac Exam: Reveals a regular rate and rhythm without appreciable murmur or gallop. Trace peripheral edema is evident. LAB DATA: Includes a white blood cell count 7.2, hematocrit 28.6, platelet count 116,000. BUN 87, creatinine 1.3. Albumin 2.3. IMPRESSION: 1. Respiratory failure. 2. Probable aspiration pneumonia with Klebsiella growing in sputum. 3. Chronic obstructive pulmonary disease. 4. Status post relocation of dislocated hip prosthesis. 5. Abnormal cardiac enzyme. On presentation probably related to skeletal muscle injury. 6. Paroxysmal atrial fibrillation. 7. Chronic congestive heart failure with preserved left ventricular systolic function. RECOMMENDATIONS: 1. Continues supportive care. 2. If patient manifests persistent atrial fibrillation, consider initiation of intravenous amiodarone. cc: Hamilton Rodriguez MD
[2017-06-01] MEDS: LOPRESSOR PO SCH ×4 (02:00→22:18)
[2017-06-01] MEDS: LASIX IV SCH (03:41)
[2017-06-01] MEDS: LOVENOX SUBQ SCH (03:41)
[2017-06-01] MEDS: DIPRIVAN 1% 1,000 MG/100 ML BOTTLE IV SCH ×4 (03:42→22:34)
[2017-06-01] MEDS: DUONEB (A & A) INH SCH ×6 (03:44→23:05)
[2017-06-01 04:35] LABS: ALLEN TEST YES; BE -3.5 mmoll (-3.0-3.0); BLOOD TYPE ARTERIAL; DRAW SITE R RADIAL; METHB 1.3 % (0.0-1.5); O2(CT) 18.3 mL/dL (15.0-23.0); PCO2(98.6) 41 mmHg (35-45); PO2(98.6) 75 mmHg (60-100); SAMPLE BLOOD; SRATE 8 BPM; TVOL 650 mL; pH(98.6) 7.34 (7.35-7.45)
[2017-06-01 04:36] LABS: MODALITY VENTILATOR
[2017-06-01 05:36] LABS: HEMATOCRIT 27.1 % (42.0-52.0); HEMOGLOBIN 8.6 g/dL (14.0-18.0); MCH 30.1 PG (27-31); MCHC 31.7 g/dL (33-37); MCV 94.8 FL (81-99); MPV 12.6 FL (7.4-10.4); RBC 2.86 XMIL (4.7-6.1)
[2017-06-01 06:12] LABS: CALCIUM 8.1 mg/dL (8.8-10.2); POTASSIUM 4.3 mmol/L (3.5-5.1); TOTAL BILIRUBIN 0.68 mg/dL (0.20-1.00); TOTAL PROTEIN 5.4 g/dL (6.3-8.3)
[2017-06-01 06:15] LABS: MAGNESIUM 2.4 mg/dL (1.5-2.7)
--- NOTE | 2017-06-01 07:22 | Diag Imaging Result Doc PS360 ---
EXAM: CHEST-PORTABLE HISTORY: respiratory failure TECHNIQUE: AP portable at 0500 COMMENT: There is an endotracheal tube with its tip approximately 2 cm above the sabi. There is an NG tube which passes below the diaphragm. There is a PICC line on the left with its tip in the superior vena cava. There are pleural effusions worse on the right than the left and there is pulmonary edema. There has been no appreciable change since the previous study of 05/31/2017. IMPRESSION: Pulmonary edema and pleural effusions, stable. Electronically signed by Tony Anne 06/01/2017 7:20 AM
[2017-06-01] MEDS: METANX PO SCH (08:32)
[2017-06-01] MEDS: CORDARONE PO SCH ×2 (08:32→22:17)
[2017-06-01] MEDS: SANTYL OINT TOP SCH ×2 (08:33→22:20)
[2017-06-01] MEDS: MYCOSTATIN POWDER TOP SCH (08:35)
[2017-06-01 08:52] LABS: URINE SOURCE CATH
[2017-06-01 09:05] LABS: BILIRUBIN URINE NEGATIVE (NEGATIVE); BLOOD URINE MODERATE (NEGATIVE); COLOR YELLOW; GLUCOSE URINE NEGATIVE (NEGATIVE); LEUKOCYTES URINE NEGATIVE (NEGATIVE); NITRITE URINE NEGATIVE (NEGATIVE); PROTEIN URINE TRACE mg/dL (NEGATIVE); TURBIDITY URINE CLEAR (CLEAR); UROBILINOGEN URINE NORMAL (NORMAL)
[2017-06-01 09:06] LABS: URINE MICRO REVIEW NEEDED? YES
[2017-06-01 09:27] LABS: UR EPITHELIAL CELLS <10 /HPF (<10); URINE BACTERIA NEGATIVE /HPF; URINE RBC <10 /HPF (<10); URINE WBC <10 /HPF (<10)
[2017-06-01] MEDS: MAXIPIME 2 GM/NS 2 GM/100 ML IVPB IV SCH ×2 (10:01→22:18)
[2017-06-01] MEDS: SOLU-MEDROL IV SCH ×2 (10:01→22:18)
[2017-06-01] MEDS ORDERED: SODIUM CHLORIDE 0.9% 10 ML ONE (10:05)
[2017-06-01] MEDS: SODIUM CHLORIDE 0.9% INJ SCH (10:05)
[2017-06-01] MEDS: PEPCID IV SCH ×2 (10:05→22:18)
[2017-06-01 10:39] LABS: UR CREAT RANDOM 22.1 mg/dL (14-26)
--- NOTE | 2017-06-01 10:42 | PROGRESS NOTE ---
DATE: 06/01/2017 SUBJECTIVE: Patient is doing about the same. No major issues reported in the nurse's notes. OBJECTIVE: Vital Signs: Patient is currently afebrile. His vital signs are stable. General: Sedated, on the ventilator. Cardiovascular: Regular rate and rhythm. Lungs: Referred airway noises. Abdomen: Soft, nontender, nondistended. Extremities: Right upper extremity still somewhat edematous. The wound itself with a dressing in place. Seems to be saturating just mildly through the dressing. LABORATORY: Reviewed from this morning. ASSESSMENT AND PLAN: A 76-year-old male with multiple medical comorbidities, now with chronic wound to his right upper extremity. 1. Chronic right upper extremity wound. At this time continue local wound care. I will remove the dressing and evaluate it for debridement tomorrow. 2. Multiple medical comorbidities. Currently being managed by the primary team. cc: Trev Boggs MD
--- NOTE | 2017-06-01 11:36 | PROGRESS NOTE ---
DATE: 06/01/2017 SUBJECTIVE: Mr. Escoto remains ventilator dependent. Nurse indicates that he has had a bradycardic episode during the night. He appears in no acute distress. OBJECTIVE: Vital Signs: His most recent vital signs are temperature 98.3 degrees, blood pressure 157/51, heart rate 70, respirations 19. He remains ventilator dependent 45% with a saturation of 95%. He has had 1967 in and 2555 out per Huerta catheter. Laboratory Data: This a.m., sodium 148, potassium 4.3, chloride is 109, CO2 22 , BUN 105, creatinine 1.7, glucose 144, his anion gap is 17, calcium 8.1, phosphorus 4.8, magnesium 2.4, albumin 3. White count 9.43, hemoglobin 8.6, hematocrit 27.1, with a platelet count of 114,000. ABGs with a pH of 7.34, CO2 41, PO2 75, bicarb 22.1. Chest x-ray this a.m. shows pulmonary edema with pleural effusions. These remain stable. Physical Examination: General: This is a 76-year-old, white male. He is currently resting in bed. He is in no acute distress. His skin is warm and dry. HEENT: Normocephalic, atraumatic. Conjunctivae are pink. He has ANTHONY, though these remain sluggish on Diprivan. Neck: Supple. Trachea midline. No JVD. Cardiovascular: He has regular rate and rhythm on the monitor. Lungs: Diminished breath sounds anterior with crackles to the posterior bases. Remains ventilator dependent. NG tube remains to tube feedings of Nepro continual. Abdomen: Soft , nontender. Positive bowel sounds. Genitourinary: Huerta catheter is in place. He has had adequate urine out. Integumentary: The patient has hematomas to the PICC line to the left upper arm. Some bruising noted to the left upper arm and to the right upper arm with 1 to 2+ swelling. Extremities: Lower extremities have 2+ edema. No clubbing or cyanosis. Neurological: Patient is sedated, ventilator dependent. ASSESSMENT AND PLAN: 1. Acute kidney injury. This has had no changes. Adequate urine out. 2. Fluid volume overload. Patient continues to receive Lasix. He continues with bilateral infiltrates and pleural effusions on chest x-ray this morning. These remain stable. 3. Electrolytes. These currently remain stable. 4. Acidosis. This remains stable. 5. Anemia. This remains low but stable. No need for intervention. 6. Fall. This continues to be followed by orthopedics. I would like to thank you for allowing us to follow with this patient. Seen, data reviewed, discussed with David Mendez on 06/01/17. I agree with the above assessment and plan of care. rg Dictated by MARGARITA Johnson for Watson Kahn MD cc: MARGARITA Johnson MD [facility]
[2017-06-01] MEDS: D5W 1,000 ML IV SCH (12:11)
[2017-06-01] MEDS: MORPHINE IV PRN (14:35)
--- NOTE | 2017-06-01 14:58 | PROGRESS NOTE ---
DATE: 06/01/2017 SUBJECTIVE: The patient remains sedated on the ventilator. No acute events noted overnight. OBJECTIVE: Vital Signs: Temperature 97.9 degrees, blood pressure 122/48, heart rate 77, respirations 26, O2 saturations 98% on the mechanical ventilator. General: This is a chronically ill-appearing, elderly male, lying in bed, intubated. Head: Normocephalic, atraumatic. Heart: S1, S2. Normal. Lungs: Equal air entry bilaterally. Coarse breath sounds. Abdomen: Positive bowel sounds. Soft, nontender, nondistended. Extremities: The patient has 2+ edema in the upper extremities. Neurologic: The patient is sedated, on the ventilator. LABS: White blood cell count 9.4, hemoglobin 8.6, hematocrit 27, platelets 114,000. Sodium 148, potassium 4.3, chloride 109, CO2 22, BUN 105, creatinine 1.7, glucose 144, phosphorus 4.8, AST 79, ALT 112, alkaline phosphatase 133, albumin 3. ASSESSMENT AND PLAN: 1. Acute hypercapnic respiratory failure. Continue with ventilatory support as directed by the fixed assets accountant. 2. Aspirational pneumonia secondary to Klebsiella. Continue on IV antibiotic therapy. 3. Urinary tract infection secondary to Morganella. Continue on IV antibiotic therapy. 4. Acute kidney injury. The patient's BUN and creatinine are elevated today. This is likely secondary to diuretic therapy which has been discontinued. Further management as per the on air announcer. 5. Paroxysmal atrial fibrillation. Stable. 6. Extensive right upper extremity deep vein thrombosis. Continue on full dose Lovenox. 7. Thrombocytopenia. Improved. 8. Right forearm wound status post debridement. Continue with wound care. 9. Protein calorie malnutrition. Continue on tube feeds. 10. Status post left hip arthroplasty secondary to left hip dislocation. Stable. 11. Transaminitis. We will continue to monitor this closely. It may be medication induced. 12. Gastrointestinal prophylaxis. Continue on IV Pepcid. 13. The patient remains critically ill. cc: Karin Sullivan MD
[2017-06-02] MEDS: LOPRESSOR PO SCH ×4 (02:54→20:20)
[2017-06-02] MEDS: DUONEB (A & A) INH SCH ×6 (03:34→22:47)
[2017-06-02 04:12] LABS: ALLEN TEST YES; BE -4.2 mmoll (-3.0-3.0); BLOOD TYPE ARTERIAL; DRAW SITE R RADIAL; METHB 0.7 % (0.0-1.5); O2(CT) 11.3 mL/dL (15.0-23.0); PCO2(98.6) 38 mmHg (35-45); PO2(98.6) 74 mmHg (60-100); SAMPLE BLOOD; SAO2 97.8 % (95.0-100.0); SRATE 8 BPM; THB 8.4 g/dL (11.5-17.4); TVOL 650 mL; pH(98.6) 7.35 (7.35-7.45)
[2017-06-02 04:13] LABS: MODALITY VENTILATOR
[2017-06-02] MEDS: D5W 1,000 ML IV SCH ×3 (04:15→23:05)
[2017-06-02] MEDS: DIPRIVAN 1% 1,000 MG/100 ML BOTTLE IV SCH ×3 (04:18→21:57)
[2017-06-02 05:03] LABS: ALBUMIN 2.9 g/dL (3.5-5.0); CALCIUM 8.3 mg/dL (8.8-10.2); TOTAL BILIRUBIN 0.63 mg/dL (0.20-1.00); TOTAL PROTEIN 5.4 g/dL (6.3-8.3)
--- NOTE | 2017-06-02 05:05 | PROGRESS NOTE ---
DATE: 06/01/2017 PRESENT ILLNESS: The patient is being treated now for a Klebsiella pneumoniae and Morganella urinary tract infection. The patient is receiving cefepime. This is the 7th day of treatment. MEDICATION: As mentioned the patient is taking cefepime for the 7th day. PHYSICAL EXAMINATION: Vital Signs: Temperature is 98.3 degrees, pulse 69, respirations 18, blood pressure 132/43. Generally: This is an intubated patient who is sedated. He made no spontaneous movements during my exam. Lungs: There were inspiratory wheezes bilaterally. Cardiovascular: Regular heart rate. Abdomen: Soft and nontender. Integument: No rash noted. LAB AND X-RAY: Chest x-ray shows bilateral infiltrates. The patient's CBC shows a white count of 9430, hemoglobin 8.6, and platelet count of 114,000. Blood gases show a pH of 7.34, PO2 of 75, and a pCO2 of 41. Alkaline phosphatase is 133. Creatinine is 1.7. GFR is 40. As mentioned yesterday, the patient's IgG is 534 which is slightly lower with a normal starting at 700. ASSESSMENT AND PLAN: I am going to continue cefepime for another week. As long as the patient seems to be doing well, I am not going to give him gammaglobulin but if he should not do as well, I will give him a dose. COMORBIDITIES: Include alcoholism, COPD, gastroesophageal reflux disease, congestive heart failure, and questionably a low IgG level. cc: Thor Fields MD MTDD
--- NOTE | 2017-06-02 07:24 | Diag Imaging Result Doc PS360 ---
EXAM: CHEST-PORTABLE INDICATION: respiratory failure TECHNIQUE: One view COMPARISON: 06/01/2017 FINDINGS: Support tubes and lines appear to be in stable positions. Bilateral infiltrates most compatible with pulmonary edema are essentially stable. There are stable effusions, largest on the right. No new consolidations are appreciated. Cardiac silhouette is stable. IMPRESSION: Essentially stable chest. Electronically signed by Shahbaz Taylor 06/02/2017 7:22 AM
[2017-06-02] MEDS: METANX PO SCH (08:21)
[2017-06-02] MEDS: SANTYL OINT TOP SCH (08:22)
[2017-06-02] MEDS: MYCOSTATIN POWDER TOP SCH (08:22)
[2017-06-02] MEDS: CORDARONE PO SCH ×2 (08:22→20:20)
--- NOTE | 2017-06-02 10:24 | PROGRESS NOTE ---
DATE: 06/02/2017 SUBJECTIVE: Patient doing about the same. No major changes reported. He is having some mild bleeding noted on his PICC line. OBJECTIVE: Vital Signs: Patient is currently afebrile. His vital signs are stable. General Examination: No acute distress. Resting comfortably and sedated on the ventilator. Cardiovascular: Regular rate and rhythm. Lungs: Referred airway noises. Abdomen: Soft, nontender, nondistended. Extremities: Right upper extremity still somewhat edematous. I removed the dressing. There is some mild amount of slough and eschar noted at that I debrided sharply and excise. This measured less than 20 sq cm. I debrided back to healthy tissue. There was a smell noted to the area. On his left upper extremity, his PICC line is intact and flushes but he has what appears to be a clot near on the skin. Laboratory: ABG reviewed. ASSESSMENT/PLAN: A 76-year-old, male with multiple medical comorbidities, now with chronic wound to his right upper extremity. 1. Chronic wound to right upper extremity. At this time, I debrided back some tissue sharply and excised it. He tolerated it well. Given the smell, we will add Vashe for cleaning the wound to help with the smell. We will continue Drawtex and Santyl. 2. Multiple medical comorbidities. At this time, being managed by the primary team. I will continue to follow with you. cc: Trev Boggs MD
[2017-06-02] MEDS: MAXIPIME 2 GM/NS 2 GM/100 ML IVPB IV SCH ×2 (10:52→23:10)
[2017-06-02] MEDS: SOLU-MEDROL IV SCH ×2 (10:52→23:11)
[2017-06-02] MEDS: PEPCID IV SCH ×2 (10:53→23:11)
[2017-06-02] MEDS: SODIUM CHLORIDE 0.9% INJ SCH (10:53)
[2017-06-02] MEDS: MORPHINE IV PRN (11:04)
--- NOTE | 2017-06-02 12:16 | Diag Imaging Result Doc PS360 ---
EXAM: CT THORAX W/O CONTRAST HISTORY: abnormal CXR TECHNIQUE: CT of the chest without contrast and With dose reduction (clarity.) COMMENT: There is an endotracheal tube with its tip well above the sabi. There is an NG tube with its tip in the stomach. There are bilateral pleural effusions. Some loculation of fluid on the right is present if not on the left. Compared to 05/21/2017, other than the presence of the endotracheal tube and the NG tube, the left pleural effusion is new as is the compressive atelectasis in the left lower lobe. The right pleural effusion is slightly larger. There is fluid in the right subphrenic space which was not demonstrated previously. Otherwise, there is been no significant change. IMPRESSION: Worsening pleural effusions and ascites. Worsened compressive atelectasis particularly in the left lower lobe. Electronically signed by Tony Anne 06/02/2017 12:13 PM
--- NOTE | 2017-06-02 13:19 | PROGRESS NOTE ---
DATE: 06/02/2017 SUBJECTIVE: Mr. Escoto is resting quietly in bed. He remains ventilator dependent and sedated. No acute distress is noted. OBJECTIVE/VITAL SIGNS: His most recent vital signs: Temperature 97.6 degrees, blood pressure 133/44, heart rate 80, respirations 21. He is on 45% FiO2. His last recorded saturation 94%. He has had 2834 in and 1305 out. The patient appears 1 L positive in the last 24 hours. LABS: Sodium 138, potassium 4, chloride 103, CO2 20, BUN 119, creatinine 1.9, glucose 203. Anion gap 15, calcium 8.3, albumin 2.9. White count 9.43, hemoglobin 8.6, hematocrit 27.1, with a platelet count of 114. ABGs: A pH 7.35, CO2 38, PO2 74, bicarbonate 21.6 on 45 %. His FENa score is indicated at 4%; this is more likely indicating intrarenal with an elevated BUN. PHYSICAL EXAMINATION: General: This is a 76-year-old white male. He is resting in bed. He has no acute distress. Skin: Warm and dry. He remains sedated on ventilator dependence. HEENT: Normocephalic, atraumatic. Conjunctivae pink. He has ANTHONY. Mucous membranes are moist. The patient was recently suctioned with mouth care. Neck: Supple. Trachea midline. Trace JVD. Cardiovascular: Regular rate and rhythm without murmur or gallop. Lungs: Clear to auscultation anteriorly. Diminished breath sounds bilateral, greater in the posterior bases. Ventilator dependence is noted. Abdomen: Patient has an NG tube feeding with Nepro; this is continual. Soft and nontender. Positive bowel sounds. Genitourinary: Huerta catheter is in place. Adequate urine out. Integumentary: The patient has some ecchymosis with hematoma to the PICC line over the left and the upper right arm. These remain dressed. Extremities: He continues with 1+ to 2+ lower extremity edema. No clubbing or cyanosis. Neurological: Patient remains ventilator dependent with sedation. ASSESSMENT AND PLAN: 1. Acute kidney injury. He has had no change. BUN continues to elevate more than likely secondary to his Clinimix infusion. He is up to 119 from 105. He continues to make adequate urine. There are no indications for intervention at this time. 2. Fluid volume overload. Patient is only 1 L positive in the last 24 hours. No changes to his breath sounds; he remains on 45% FIO2. 3. Electrolytes and acid-base balance. These remain stable. 4. Anemia. This is low, but stable. I would like to thank you for allowing us to follow with this patient. Seen, data reviewed, discussed with David Mendez on 06/02/17. I agree with the above assessment and plan of care. rg Dictated by MARGARITA Johnson for Watson Kahn MD cc: MARGARITA Johnson MD [facility]
--- NOTE | 2017-06-02 13:41 | PROGRESS NOTE ---
DATE: 06/02/2017 SUBJECTIVE: This patient is still on mechanical ventilation. The propofol drip has been stopped at least 40 minutes ago and he is not alert and he is not following commands. I am not sure if this patient is having any kind of response with pain stimulation at this moment. He is moving his head randomly. No acute events overnight. OBJECTIVE: Vital Signs: Temperature 99.1 degrees, pulse 76, respiratory rate 15, blood pressure 130/44, oxygen saturation 95% on mechanical ventilation, 45% FiO2. HEENT: Head normocephalic. No trauma. PERRLA. Neck: Supple. No JVD. No masses. Central trachea. Chest: Clear to auscultation. No wheezing. No rales. Coarse breath sounds. Abdomen: Positive bowel sounds. Soft, nontender, nondistended. Extremities: There is 2+ upper extremity edema with a PICC line on the left side. No edema at the level of the lower extremities. Multiple hematomas at the level of the upper extremity. Neurological: This patient is on mechanical ventilation. He is not sedated at this moment but he is not responsive. LABORATORY: Sodium 138, potassium 4, chloride 103, bicarbonate 20, BUN 119, creatinine 1.9, glucose 203, calcium 8.3, albumin 2.9. ASSESSMENT AND PLAN: 1. Acute hypercapnic respiratory failure. Continue with mechanical ventilation. Pulmonary department is following this patient closely. 2. Aspiration pneumonia secondary to Klebsiella. Continue with IV antibiotics. 3. Urinary tract infection secondary to Morganella. Continue with IV antibiotics. 4. Acute kidney injury. BUN and creatinine are getting worse. Diuretics have been stopped. Nephrology department is following this patient. 5. Paroxysmal atrial fibrillation. Stable. 6. Extensive right upper extremity deep vein thrombosis. This patient used to be on a full dose of Lovenox. The dose of Lovenox has been decreased because he started bleeding through his PICC line. Will monitor. 7. Thrombocytopenia. Will monitor. 8. Right forearm wound status post debridement. Continue with wound care. 9. Protein calorie malnutrition. Continue with Nepro. He is tolerating tube feedings. 10. Status post left hip arthroplasty secondary to left hip dislocation. Stable. 11. Transaminitis. Probably related to medications. Continue to monitor. 12. Gastrointestinal prophylaxis with IV famotidine. 13. This patient is clinically ill. CRITICAL CARE TIME: 35 minutes. cc: Aleksandar Saldivar MD
--- NOTE | 2017-06-02 18:06 | PROGRESS NOTE ---
DATE: 06/02/2017 PRESENT ILLNESS: The patient is being treated for Klebsiella pneumonia and Morganella urinary tract infection with cefepime. MEDICATIONS: Patient has been on cefepime now for 8 days. PHYSICAL EXAMINATION: Vital Signs: Temperature is 97.6 degrees, pulse 62, respirations 17, blood pressure 144/45. General: This is an ill-appearing elderly male. He is intubated and sedated. Lungs: Clear to auscultation. Cardiovascular: Regular heart rate. Abdomen: Soft and nontender. Extremities: The patient has a PICC in his left arm. The PICC is present in that arm. The PICC site itself is not erythematous or purulent. The patient's right distal arm has a wound that has been debrided by Dr. Boggs. It seems to have healthy beefy red tissue and no surrounding erythema and no odor to the wound. LAB AND X-RAY: Creatinine is 1.9, the GFR is 35. The patient's CT scan of the chest shows worse pleural effusion and ascites and bibasilar atelectasis. There is no new CBC for today. As mentioned before, the patient's IgG level was 534. ASSESSMENT AND PLAN: The patient is treating the pneumonia and the urinary tract infection. He still appears quite ill and I plan to give him a dose of immunoglobulin tonight. COMORBIDITIES: Include alcoholism, COPD, gastroesophageal reflux disease, congestive heart failure and a low IgG level. The patient's blood gases showed a pH of 7.35, a PO2 of 74 and a pCO2 of 38. cc: Thor Fields MD
[2017-06-02] MEDS: LOVENOX SUBQ SCH (18:27)
[2017-06-02] MEDS ORDERED: FLEBOGAMMA DIF 5% IV ONE (20:00)
--- NOTE | 2017-06-02 21:20 | Extremity Venous Study ---
PROCEDURE NAME: Venous U/S Right Arm - 05/28/2017 RIGHT UPPER EXTREMITY VENOUS DUPLEX STUDY: REFERRING PHYSICIAN: Karin Sullivan MD. READING PHYSICIAN: Tyree Oliveira MD. QUALITY CONTROL COORDINATOR: Vishnu. INDICATION: Right arm swelling. There is a PICC line present. FINDINGS: The right internal jugular, subclavian, axillary, basilic, brachial, and cephalic veins were imaged. There is acute thrombosis of the right subclavian vein with some preserved flow. In addition, there is acute thrombus in the right axillary vein without any flow. The brachial vein appears to be compressible and patent and without thrombus. The basilic vein has acute thrombus from the upper arm down to the elbow. The cephalic vein is compressible and patent in the upper arm. However, in the forearm it is noncompressible and is thrombosed. The left subclavian vein appears to be patent with forward flow. No thrombus is appreciated. INTERPRETATION: Acute deep vein thrombosis of the right subclavian and axillary veins. There is acute superficial thrombosis of the right basilic and cephalic veins as described above. These results were called to Dr. Sullivan. cc: MD Karin Wong MD
[2017-06-03] MEDS: LOPRESSOR PO SCH ×4 (02:13→21:05)
[2017-06-03] MEDS: DUONEB (A & A) INH SCH ×6 (03:18→22:42)
[2017-06-03] MEDS: DIPRIVAN 1% 1,000 MG/100 ML BOTTLE IV SCH ×3 (03:58→20:09)
[2017-06-03 04:00] LABS: ALLEN TEST YES; BE -6.4 mmoll (-3.0-3.0); BLOOD TYPE ARTERIAL; DRAW SITE R RADIAL; METHB 0.9 % (0.0-1.5); MODALITY VENTILATOR; PCO2(98.6) 37 mmHg (35-45); PO2(98.6) 70 mmHg (60-100); SAMPLE BLOOD; SAO2 96.7 % (95.0-100.0); SRATE 8 BPM; THB 8.3 g/dL (11.5-17.4); TVOL 650 mL; pH(98.6) 7.32 (7.35-7.45)
[2017-06-03 04:09] LABS: BASO% 0.1 % (0.0-0.8); EOS# 0.08 X1000 (0.0-0.7); EOS% 0.5 % (0.0-10.0); HEMATOCRIT 24.9 % (42.0-52.0); IMM GRAN% 1.3 % (0.0-0.5); LYMPH# 0.22 X1000 (1.2-3.4); LYMPH% 1.5 % (20.5-51.1); MANUAL DIFF NEEDED? YES; MCHC 32.1 g/dL (33-37); MCV 93.3 FL (81-99); MONO# 0.28 X1000 (0.11-0.59); MONO% 1.9 % (1.7-9.3); MPV 11.4 FL (7.4-10.4); NEUT% 94.7 % (42.2-75.2); PLT 135 X1000 (130-400); RBC 2.67 XMIL (4.7-6.1)
[2017-06-03 04:21] LABS: BANDS 10 % (0-1); LYMPHS 2 % (21-51); MONO 2 % (1-9)
[2017-06-03 04:33] LABS: MAGNESIUM 2.4 mg/dL (1.5-2.7)
[2017-06-03 04:42] LABS: ALBUMIN 2.7 g/dL (3.5-5.0); CALCIUM 8.1 mg/dL (8.8-10.2); POTASSIUM 3.8 mmol/L (3.5-5.1); TOTAL BILIRUBIN 0.79 mg/dL (0.20-1.00); TOTAL PROTEIN 5.2 g/dL (6.3-8.3)
[2017-06-03] MEDS: LOVENOX SUBQ SCH ×2 (07:06→18:03)
--- NOTE | 2017-06-03 07:19 | Diag Imaging Result Doc PS360 ---
EXAM: CHEST-PORTABLE HISTORY: respiratory failure TECHNIQUE: AP portable upright at 0450 COMMENT: There are bilateral pleural effusions and dense alveolar opacities over the lung bases. The heart size and pulmonary vascularity are within normal limits. The endotracheal tube and left PICC line remain in place. No appreciable changes occurred since 06/02/2017. IMPRESSION: Pulmonary edema plus minus pneumonia with bilateral pleural effusions. Electronically signed by Tony Anne 06/03/2017 7:16 AM
--- NOTE | 2017-06-03 08:25 | PROGRESS NOTE ---
DATE: 06/03/2017 SUBJECTIVE: The patient is about the same. Nursing staff reports decreased urine output over the last several hours. OBJECTIVE: Vital Signs: Patient is currently afebrile. His vital signs are stable. General exam: Sedated on the ventilator resting comfortably. Cardiovascular: Regular rate and rhythm. Lungs: Refer to airway noises. Abdomen: Soft, nontender, nondistended. Extremities: Right upper extremity still edematous. Dressings intact. Overall slightly improved. LABORATORY: White blood cell count is 14.9 which is up from 9. His BUN is 134; his creatinine is 2.5. ASSESSMENT/PLAN: A 72-year-old, male with multiple medical comorbidities now with chronic wound to his right upper extremity. 1. Chronic wound to right upper extremity. At this time, I recommend continue Vashe and Santyl. Will have my partners over the weekend re-evaluate for possible debridement. Will continue current treatment. 2. Multiple medical comorbidities now including acute respiratory failure and acute kidney injury. He is being managed by the specialist. We will continue to monitor. cc: Trev Boggs MD
--- NOTE | 2017-06-03 08:56 | PROGRESS NOTE ---
DATE: 06/03/2017 SUBJECTIVE: Mr. Escoto remains on the vent. He is still being treated for his lungs and just really has had a slow recovery so far. OBJECTIVE: Left lower extremity exam: Hip abduction pillow still in place. Leg lengths look fine, 2+ DP pulse. Unfortunately, he is on the vent and a little bit sedated. He does follow commands. RADIOGRAPHS: Pelvis film this week shows the hip is still reduced and no fracture seen. ASSESSMENT: Status post left hip closed reduction. PLAN: Will keep the hip abduction pillow, especially since he is still on the vent and he has got a lot of other issues going on. Once he gets extubated and we begin to mobilize, then will need hip precautions with physical therapy. cc: Brigido Stokes MD
[2017-06-03] MEDS: CORDARONE PO SCH ×2 (08:57→21:05)
[2017-06-03] MEDS: METANX PO SCH (08:57)
[2017-06-03] MEDS: MYCOSTATIN POWDER TOP SCH (09:01)
[2017-06-03] MEDS: SANTYL OINT TOP SCH (09:03)
--- NOTE | 2017-06-03 09:54 | PROGRESS NOTE ---
DATE: 06/03/2017 SUBJECTIVE: No obvious changes. Urine output has dropped off. OBJECTIVE: Vital Signs: Blood pressure 126/42, heart rate 70, respirations 12, afebrile. Intake 3.4 L; output 500 mL. General: Physical exam unresponsive. Skin: Warm and dry with ecchymoses. Eyes: Conjunctivae are pink. Neck: Neck veins not appreciated. Trachea is midline. Heart: Irregular and tachycardic. Lungs: Have equal breath sounds. Few wheezes and tube noises present. Abdomen: Soft, nontender. Bowel sounds are present. Extremities: Have 1+ to 2+ edema. No clubbing or cyanosis. IMPRESSION: Acute kidney injury. Becoming oliguric and BUN is now 134. Meets criteria to initiate dialysis. We will ask Dr. Boggs for a Vas cath once we have been able to obtain consent from the family. We will institute slow, low efficiency dialysis for volume and electrolyte management. cc: Watson Kahn MD
[2017-06-03] MEDS: MAXIPIME 2 GM/NS 2 GM/100 ML IVPB IV SCH ×2 (10:37→23:03)
--- NOTE | 2017-06-03 10:42 | PROGRESS NOTE ---
DATE: 06/03/2017 SUBJECTIVE: This patient is still on mechanical ventilation and sedated. No acute events overnight. X-ray and CT scan shows bilateral pulmonary edema plus or minus pneumonia. The fluid on the right side is larger than the left side. Probably this patient will need in the near future a thoracentesis done on the right side. The kidney function is getting worse. Nephrology Department is following this patient closely. I think we need to get a consent for possible dialysis catheter and dialysis. OBJECTIVE: Vital Signs: Temperature 98.5 degrees, pulse 70, respiratory rate 12, blood pressure 126/42, O2 saturation 97% on mechanical ventilation 40% FiO2. HEENT: Head normocephalic. No trauma. PERRLA. Neck: Supple. No JVD. No masses. Central trachea. Chest: Decreased breath sounds at the bases with crackles, coarse breath sounds. Abdomen: Positive bowel sounds. Soft and nondistended. Extremities: There is 2+ upper extremity edema with a PICC line on the left side. No edema at the level of the left lower extremity. He has multiple hematomas at the level of the upper extremities, and he has a lesion at the level of the right forearm that apparently is chronic. Surgery Department is following. Neurological examination: The patient on mechanical ventilation and sedated. LABORATORY: WBC 14.9, hemoglobin 8, hematocrit 24.9, platelet 135. Sodium 137, potassium 3.8, chloride 101, bicarbonate 18, BUN 134, creatinine 2.5, glucose 184, calcium 8.1, albumin 2.7. ASSESSMENT AND PLAN: 1. Acute hypercapnic respiratory failure. Continue with mechanical ventilation. Pulmonary Department is following this patient closely. This patient has bilateral pleural effusion, larger on the right side. Probably he will need thoracentesis. 2. Aspiration pneumonia secondary to Klebsiella. Continue with intravenous antibiotics. Infectious Disease Department is following this patient. 3. Urinary tract infection secondary to Morganella. Continue with intravenous antibiotics. 4. Acute kidney injury. BUN and creatinine are getting worse. Probably this patient will need dialysis in the near future. Nephrology Department is following this patient as well. 5. Paroxysmal atrial fibrillation. Stable. 6. Extensive right upper extremity deep vein thrombosis. This patient used to be on a full dose of Lovenox; the dose of Lovenox has been decreased because he started bleeding through his PICC line. Will monitor. 7. Thrombocytopenia is getting better. 8. Right forearm wound status post debridement. Continue with wound care. Surgery Department is following. 9. Protein calorie malnutrition. Continue with Nepro. He is tolerating tube feedings. 10. Status post left hip arthroplasty secondary to left hip dislocation. Stable. 11. Transaminitis probably is related to medication. Continue to monitor. 12. Gastrointestinal prophylaxis with intravenous famotidine. 13. This patient is critically ill. No family members at the bedside. CRITICAL CARE TIME: 35 minutes. cc: Aleksandar Saldivar MD
[2017-06-03] MEDS: SOLU-MEDROL IV SCH ×2 (10:43→23:04)
--- NOTE | 2017-06-03 10:43 | Diag Imaging Result Doc PS360 ---
EXAM: CHEST-PORTABLE HISTORY: post thoracentesis TECHNIQUE: AP portable upright at 1030 COMMENT: There is improvement in the pleural effusion present in the right lower chest since 06/03/2017 at 0450. There is persistence the alveolar opacity in the left lower lobe. There is no evidence of pneumothorax. Otherwise has been no significant change. IMPRESSION: Improved right pleural effusion status post thoracentesis. Electronically signed by Tony Anne 06/03/2017 10:41 AM
[2017-06-03] MEDS: PEPCID IV SCH ×2 (10:44→23:04)
--- NOTE | 2017-06-03 10:44 | Diag Imaging Result Doc PS360 ---
EXAM: HIP 1 VIEW LEFT HISTORY: confirm hip still in place TECHNIQUE: Left hip one view portable at 1030 COMMENT: The hip prosthesis appears to be aligned as it was on the previous study of 05/31/2017. IMPRESSION: No evidence of dislocation. Electronically signed by Tony Anne 06/03/2017 10:42 AM
[2017-06-03 11:00] LABS: TOTAL PROT BODY FLUID 3.3 g/dL
[2017-06-03 11:18] LABS: DIFF NEEDED? YES; SPECIMEN PLEURAL FLUID; WBC BF 339 /cumm
[2017-06-03 11:19] LABS: MONOS 42 %; POLYS 58 %
[2017-06-03 12:02] LABS: ALLEN TEST YES; BE -6.2 mmoll (-3.0-3.0); BLOOD TYPE ARTERIAL; DRAW SITE L RADIAL; METHB 0.8 % (0.0-1.5); PCO2(98.6) 40 mmHg (35-45); PO2(98.6) 94 mmHg (60-100); SAMPLE BLOOD; SAO2 98.8 % (95.0-100.0)
[2017-06-03 12:03] LABS: MODALITY VENTILATOR
[2017-06-03] MEDS: SODIUM BICARBONATE 8.4% 100 MEQ in D5W 1,000 ML IV SCH (13:04)
[2017-06-03] MEDS: MORPHINE IV PRN (14:45)
--- NOTE | 2017-06-03 15:37 | OPERATIVE NOTE ---
PROCEDURE DATE: PROCEDURE PERFORMED: Thoracentesis from the right hemithorax. CLINICAL INDICATIONS: A 76-year-old patient on a ventilator with a large right-sided pleural effusion. Thoracentesis performed for diagnostic reasons and to aid in liberation from mechanical ventilation. DESCRIPTION OF PROCEDURE: After informed consent was obtained from the family, the patient was set on the side of the bed and held in position by 2 nurses. The right hemithorax was evaluated under ultrasound and a large right-sided pleural effusion was identified. The site was prepped and draped in the usual sterile fashion and local anesthesia was achieved with 1% lidocaine. Pleural fluid was identified with the anesthetic needle. A plastic catheter was introduced into the right hemithorax without difficulty. 1500 mL of clear yellow fluid was aspirated from the right hemithorax without difficulty. Peak pressures on the ventilator remained low during the procedure. A postprocedure chest x-ray is pending. cc: Donovan Vivar MD
--- NOTE | 2017-06-03 18:04 | OPERATIVE NOTE ---
PROCEDURE DATE: 06/03/2017 PREOPERATIVE DIAGNOSIS: Acute kidney injury requiring hemodialysis. POSTOP DIAGNOSIS: Acute kidney injury requiring hemodialysis. PROCEDURE: Ultrasound guided right common femoral vein Vas-Cath placement. SURGEON: Trev Boggs MD. CINDER BLOCK MASON: None. ANESTHESIA: Local administered by the surgeon. FINDINGS: On ultrasound the common femoral vein was of sufficient size to accommodate a Vas-Cath. BRIEF HISTORY: Patient is a 76-year-old male who has been in the ICU after sustaining a hip fracture. He had continued to decline his urine output and is felt that he would benefit for his hemodialysis access. The risks, benefits, alternatives were discussed the family. All questions answered. DESCRIPTION OF PROCEDURE: After informed consent was obtained, patient remained in his ICU bed. The right groin was prepped and draped sterile fashion. A formal time-out was then performed confirming patient, date, procedure. All were in agreement. At that time attention was given to the right groin, ultrasound was used to identify the right common femoral vein, I elected to use the groin because the patient did have a DVT in his upper extremities and we wanted to avoid any kind of issue with that. We were able to find the common femoral vein. I used local anesthetic to anesthetize the skin. Under ultrasound guidance I was able to cannulate the right common femoral vein, pass a wire easily into it, I was able to serially dilate up in the track using standard technique to place a Vas-Cath. All ports aspirated and flushed easily. The blood was nonpulsatile. It was dark. We secured the port in place, placed a sterile dressing. The patient tolerated procedure well, remained in his ICU bed. cc: Trev Boggs MD [facility]
--- NOTE | 2017-06-03 18:39 | PROGRESS NOTE ---
DATE: 06/03/2017 PRESENT ILLNESS: The patient currently is being treated for Klebsiella pneumonia and Morganella urinary tract infection. He is receiving cefepime. Patient also has immunoglobulin G deficiency. MEDICATIONS: The patient now has been on cefepime for a total of 9 days. Last night the patient received IVIG. PHYSICAL EXAMINATION: Vital Signs: Temperature is 97.5 degrees, pulse 66, respirations 16, blood pressure 156/51. General: This is an ill-appearing, elderly male. He is intubated and sedated. Lungs: Clear to auscultation. Cardiovascular: Heart rate is regular. Abdomen: Soft and not tender. Extremities: The patient's right hand wound is not erythematous or purulent. LAB AND X-RAY: The chest x-ray shows marked improvement in the large right pleural effusion following Dr. Vivar's thoracentesis. CBC shows a white count of 14,930, hemoglobin 8, and platelet count 135,000. Patient's blood gases show a pH of 7.3, a PO2 of 94, a pCO2 of 40, creatinine is 2.5, GFR is 25. The pleural fluid had 1+ white cells. A culture is pending. Blood cultures are pending. Overall Dr. Vivar by thoracentesis obtained 1500 mL of clear yellow fluid. ASSESSMENT AND PLAN: Patient has pneumonia and urinary tract infection. I plan to continue his antibiotic. Also the patient last night received IVIG because of the patient's low IgG level. COMORBIDITIES: Include alcoholism, COPD, gastroesophageal reflux disease, congestive heart failure and IgG deficiency. cc: Thor Fields MD
[2017-06-03] MEDS: SODIUM CHLORIDE 0.9% INJ SCH (23:04)
[2017-06-04] MEDS: DIPRIVAN 1% 1,000 MG/100 ML BOTTLE IV SCH ×2 (00:43→05:34)
[2017-06-04] MEDS: DUONEB (A & A) INH SCH ×6 (03:06→22:58)
[2017-06-04] MEDS: LOPRESSOR PO SCH ×4 (03:19→20:37)
[2017-06-04 04:09] LABS: ALLEN TEST YES; BE -7.6 mmoll (-3.0-3.0); BLOOD TYPE ARTERIAL; DRAW SITE R RADIAL; METHB 0.7 % (0.0-1.5); O2(CT) 15.4 mL/dL (15.0-23.0); PCO2(98.6) 37 mmHg (35-45); PO2(98.6) 94 mmHg (60-100); SAMPLE BLOOD; SAO2 99.4 % (95.0-100.0); SRATE 8 BPM; THB 11.3 g/dL (11.5-17.4); TVOL 650 mL
[2017-06-04 04:10] LABS: MODALITY VENTILATOR
[2017-06-04 04:54] LABS: BASO% 0.1 % (0.0-0.8); EOS# 0.02 X1000 (0.0-0.7); EOS% 0.1 % (0.0-10.0); HEMATOCRIT 22.5 % (42.0-52.0); HEMOGLOBIN 7.4 g/dL (14.0-18.0); IMM GRAN# 0.12 X1000 (0.0-0.04); IMM GRAN% 0.8 % (0.0-0.5); LYMPH# 0.18 X1000 (1.2-3.4); LYMPH% 1.2 % (20.5-51.1); MANUAL DIFF NEEDED? YES; MCH 30.2 PG (27-31); MCHC 32.9 g/dL (33-37); MCV 91.8 FL (81-99); MONO# 0.19 X1000 (0.11-0.59); MONO% 1.3 % (1.7-9.3); MPV 11.6 FL (7.4-10.4); NEUT% 96.5 % (42.2-75.2); PLT 122 X1000 (130-400); RBC 2.45 XMIL (4.7-6.1)
[2017-06-04 05:09] LABS: BANDS 6 % (0-1); LYMPHS 2 % (21-51)
[2017-06-04 05:15] LABS: ALBUMIN 2.4 g/dL (3.5-5.0); CALCIUM 8.1 mg/dL (8.8-10.2); POTASSIUM 4.2 mmol/L (3.5-5.1); TOTAL BILIRUBIN 0.55 mg/dL (0.20-1.00); TOTAL PROTEIN 5.5 g/dL (6.3-8.3)
[2017-06-04] MEDS: LOVENOX SUBQ SCH ×2 (05:23→17:54)
[2017-06-04] MEDS: SODIUM BICARBONATE 8.4% 100 MEQ in D5W 1,000 ML IV SCH (06:06)
[2017-06-04] MEDS: CORDARONE PO SCH ×2 (08:22→20:36)
[2017-06-04] MEDS: METANX PO SCH (08:22)
[2017-06-04] MEDS: MYCOSTATIN POWDER TOP SCH (08:35)
[2017-06-04] MEDS: SANTYL OINT TOP SCH (08:35)
--- NOTE | 2017-06-04 09:10 | Diag Imaging Result Doc PS360 ---
CHEST-PORTABLE - 06/04/2017 INDICATION: respiratory failure TECHNIQUE: COMPARISON: 06/03/2017 FINDINGS: Support lines and tubes are stable. Grossly stable bibasilar airspace opacities left greater than right. Stable cardiomegaly and pulmonary vascular congestion. IMPRESSION: No change from prior. Electronically signed by Parker Amador 06/04/2017 9:08 AM
[2017-06-04] MEDS ORDERED: HEPARIN ONE (09:42)
[2017-06-04] MEDS ORDERED: NS 2,000 ML ONE (09:42)
--- NOTE | 2017-06-04 10:54 | PROGRESS NOTE ---
DATE: 06/04/2017 SUBJECTIVE: This patient is still on mechanical ventilation and sedated. No acute events overnight. Yesterday, he had a thoracentesis done and Vas-Cath placement. OBJECTIVE: Vital Signs: Temperature 97.5 degrees, pulse 64, respiratory rate 14, blood pressure 122/39, and oxygen saturation 96% on mechanical ventilation of 40% FiO2. HEENT: Head normocephalic. No trauma. PERRLA. Neck: Supple. No JVD. No masses. Central trachea. Chest: Decreased breath sounds at the bases with crackles mostly at the level of the right lung. Coarse breath sounds. Abdomen: Positive bowel sounds. Soft, nontender, nondistended. Extremities: Has 2+ upper extremity edema with a PICC line on the left side. No edema at the level of the lower extremities. He has multiple hematoma at the level of the upper extremities, as well. He has a new right Vas-Cath on the right at the level of the right thigh. He has a lesion at the level of the right forearm that apparently is chronic. Surgery Department is following. Neurologic: The patient is on mechanical ventilation. He is not on sedation right now. His eyes are open and he is not following commands or looking at me. LABORATORY: WBC 14.7, hemoglobin 7.4, hematocrit 22.5, MCV 91.8, platelets 122,000. Sodium 134, potassium 4.2, chloride 96, bicarbonate 17, BUN 150, creatinine 2.9, glucose 179, calcium 8.1, albumin 2.4. ASSESSMENT AND PLAN: 1. Acute hypercapnic respiratory failure. Continue with mechanical ventilation. Pulmonary Department is following this patient closely this patient has bilateral pleural effusion and it was larger on the right side. Yesterday, a thoracentesis was performed on the right side. 2. Aspiration pneumonia secondary to Klebsiella. Continue with IV antibiotics. Infectious Disease Department is following this patient. 3. Urinary tract infection secondary to Morganella. Continue with IV antibiotics. 4. Acute kidney injury. BUN and creatinine are getting worse. Probably, this patient will need dialysis in the near future. A Vas-Cath has been placed yesterday. 5. Paroxysmal atrial fibrillation. Stable. 6. Extensive right upper extremity deep vein thrombosis. This patient needs to be on a full dose of Lovenox, but this has been decreased because he started bleeding through his PICC line. Will monitor. 7. Thrombocytopenia. Stable. 8. Right forearm wound, status post debridement. Continue with wound care. Surgery Department is following. 9. Protein calorie malnutrition. Continue with Nepro. He is tolerating tube feedings. 10. Status post left arthropathy secondary to left hip dislocation. Stable. 11. Transaminitis, probably related to medications. This is getting better. 12. Gastrointestinal prophylaxis. Continue the same management. 13. This patient is critically ill. No family members at the bedside. CRITICAL CARE TIME: Thirty-eight minutes. cc: Aleksandar Saldivar MD
[2017-06-04] MEDS: SOLU-MEDROL IV SCH ×2 (10:59→23:12)
[2017-06-04] MEDS: SODIUM CHLORIDE 0.9% INJ SCH ×2 (10:59→23:12)
[2017-06-04] MEDS: PEPCID IV SCH ×2 (10:59→23:12)
[2017-06-04] MEDS: MAXIPIME 2 GM/NS 2 GM/100 ML IVPB IV SCH ×2 (10:59→23:14)
--- NOTE | 2017-06-04 12:25 | PROGRESS NOTE ---
DATE: 06/04/2017 SUBJECTIVE: His eyes are open and he is off of his sedation but he is not responsive to me. OBJECTIVE: Vital Signs: Blood pressure 122/39, heart rate 64, respirations 14, afebrile. Intake 3 L. Output 1.8 L but only 300 mL of urine output. PHYSICAL EXAM: General: No acute distress. Skin: Warm and dry. HEENT: Conjunctivae are pink. Neck: Veins were not appreciated. Trachea is midline. Heart: Regular without gallops or murmurs. Lungs: Have equal breath sounds. Coarse with few crackles. Abdomen: Soft, nontender. Bowel sounds present. Extremities: Have 3+ edema. No clubbing or cyanosis. LABORATORY DATA: Sodium 134, potassium 4.2, chloride 96, bicarbonate 17, BUN 150, creatinine 2.9. IMPRESSION: 1. Acute kidney injury. Falling urine output and rising BUN and creatinine. Vas-Cath was placed last evening. We will initiate SLED today and with a goal of improved uremia management and then reassessment of his neurologic status. We will also begin working on his volume status with a goal of 3-4 L ultrafiltration today. 2. Metabolic acidosis. I will stop his bicarb drip given that we are now going to be managing his bicarbonate with dialysis. 3. Electrolytes are acceptable. cc: Watson Kahn MD
--- NOTE | 2017-06-04 12:58 | PROGRESS NOTE ---
DATE: 06/04/2017 SUBJECTIVE: Remains critically ill on the ventilator and sedated. OBJECTIVE: No fevers. Heart rate is in the 60s, blood pressure 122/39, O2 saturations high 90s on ventilator.General: He is sedated and intubated. His right hand is well perfused. There is a several cm wound with some fibrous tissue in the bed but no signs cellulitis and necrosis in the proximal hand, distal forearm on the dorsal aspect. Dressing changes going well. Discussed this with the nurse. His white count stable at 14. Glucose 179. Creatinine is up to 2.9. ASSESSMENT AND PLAN: This 76-year-old male with multiple medical problems, respiratory failure. He has a DVT in the wound on his right hand. Continue local wound care and other medical management per the hospitalist service. cc: Susy Arias MD
[2017-06-04] MEDS: MORPHINE IV PRN ×4 (13:16→23:13)
[2017-06-05] MEDS: MORPHINE IV PRN ×5 (01:01→20:46)
[2017-06-05] MEDS: DUONEB (A & A) INH SCH ×6 (03:00→22:44)
[2017-06-05] MEDS: LOPRESSOR PO SCH ×4 (03:23→20:47)
[2017-06-05 04:14] LABS: ALLEN TEST YES; BE -2.4 mmoll (-3.0-3.0); BLOOD TYPE ARTERIAL; DRAW SITE R RADIAL; METHB 1.3 % (0.0-1.5); O2(CT) 12.1 mL/dL (15.0-23.0); PCO2(98.6) 38 mmHg (35-45); PO2(98.6) 91 mmHg (60-100); SAMPLE BLOOD; SAO2 98.5 % (95.0-100.0); SRATE 8 BPM; THB 8.9 g/dL (11.5-17.4); TVOL 650 mL; pH(98.6) 7.38 (7.35-7.45)
[2017-06-05 04:19] LABS: MODALITY VENTILATOR
[2017-06-05] MEDS: LOVENOX SUBQ SCH ×2 (05:21→17:34)
[2017-06-05 06:47] LABS: BASO% 0.1 % (0.0-0.8); EOS# 0.03 X1000 (0.0-0.7); EOS% 0.2 % (0.0-10.0); HEMATOCRIT 22.2 % (42.0-52.0); HEMOGLOBIN 7.2 g/dL (14.0-18.0); IMM GRAN# 0.14 X1000 (0.0-0.04); LYMPH# 0.15 X1000 (1.2-3.4); MANUAL DIFF NEEDED? YES; MCH 29.8 PG (27-31); MCHC 32.4 g/dL (33-37); MCV 91.7 FL (81-99); MONO# 0.25 X1000 (0.11-0.59); MONO% 1.7 % (1.7-9.3); MPV 11.9 FL (7.4-10.4); PLT 111 X1000 (130-400); RBC 2.42 XMIL (4.7-6.1)
[2017-06-05 06:53] LABS: ALBUMIN 2.8 g/dL (3.5-5.0); POTASSIUM 4.1 mmol/L (3.5-5.1); TOTAL BILIRUBIN 0.59 mg/dL (0.20-1.00); TOTAL PROTEIN 5.5 g/dL (6.3-8.3)
[2017-06-05 07:29] LABS: BANDS 2 % (0-1); LYMPHS 4 % (21-51)
[2017-06-05 07:30] LABS: HYPOCHROM 1+
--- NOTE | 2017-06-05 08:26 | Diag Imaging Result Doc PS360 ---
CHEST-PORTABLE - 06/05/2017 INDICATION: respiratory failure TECHNIQUE: COMPARISON: 06/04/2017 FINDINGS: Support lines and tubes are stable. Stable ill-defined bibasilar infiltrates, nonspecific. This is worse on the left side than the right. Heart size remains borderline. IMPRESSION: No change from prior. Electronically signed by Parker Amador 06/05/2017 8:24 AM
[2017-06-05] MEDS: CORDARONE PO SCH ×2 (09:01→20:47)
[2017-06-05] MEDS: MYCOSTATIN POWDER TOP SCH (09:01)
[2017-06-05] MEDS: METANX PO SCH (09:01)
[2017-06-05] MEDS: SOLU-MEDROL IV SCH ×2 (09:01→20:47)
[2017-06-05] MEDS: SANTYL OINT TOP SCH (09:02)
[2017-06-05] MEDS ORDERED: SODIUM BICARBONATE 8.4% IV PUSH ONE (09:05)
[2017-06-05] MEDS: PEPCID IV SCH (10:33)
[2017-06-05] MEDS: MAXIPIME 2 GM/NS 2 GM/100 ML IVPB IV SCH (10:33)
[2017-06-05] MEDS: SODIUM CHLORIDE 0.9% INJ SCH (10:33)
[2017-06-05 10:55] LABS: ALLEN TEST YES; BE -1.5 mmoll (-3.0-3.0); BLOOD TYPE ARTERIAL; DRAW SITE L RADIAL; O2(CT) 10.1 mL/dL (15.0-23.0); PCO2(98.6) 41 mmHg (35-45); PO2(98.6) 80 mmHg (60-100); SAMPLE BLOOD; SAO2 97.8 % (95.0-100.0); THB 7.5 g/dL (11.5-17.4); pH(98.6) 7.37 (7.35-7.45)
[2017-06-05 10:56] LABS: MODALITY VENTILATOR
--- NOTE | 2017-06-05 11:22 | PROGRESS NOTE ---
DATE: 06/05/2017 SUBJECTIVE: This patient is still on mechanical ventilation. He is not sedated. He opens his eyes spontaneously and he is moving his head but he is not moving the rest of the body. He is not following commands. OBJECTIVE: Vital Signs: Temperature 98.2 degrees, pulse 64, respiratory rate 16, blood pressure 121/45, oxygen saturation 97% on mechanical ventilation, 40% FiO2. HEENT: Head normocephalic. No trauma. PERRLA. Neck: Supple. No JVD. No masses. Central trachea. Chest: Decreased breath sounds at the bases with crackles, mostly at the level of the right lung. Coarse breath sounds. Abdomen: Positive bowel sounds. Soft, nontender, nondistended. Extremities: He has 2+ upper extremity edema with a PICC line on the left side. No edema at the level of the lower extremities. He has multiple hematomas at the level of the upper extremities as well. He has a new right Vas-Cath on the right at the level of the right thigh. He has a lesion at the level of the right forearm that apparently is chronic. Surgery department is following. Neurological Examination: The patient is on mechanical ventilation. He is not on sedation right now. His eyes open spontaneously and he is moving his head but he is not following commands or looking at me. Laboratory: WBC 14.3, hemoglobin 7.2, hematocrit 22.2, platelets 111,000. Sodium 134, potassium 4.1, chloride 98, bicarbonate 20, BUN 76, creatinine 2.2, glucose 153, calcium 8, albumin 2.8. ASSESSMENT AND PLAN: 1. Acute hypercapnic respiratory failure. This patient is still on mechanical ventilation today. We will do a breathing trial to see if we can extubate this patient. 2. Bilateral pleural effusion, larger on the right side, status post thoracentesis. Chest x-ray done today is stable. 3. Aspiration pneumonia secondary to Klebsiella. Continue with intravenous antibiotics. Infectious disease department is following this patient. 4. Urinary tract infection secondary to Morganella. Continue with intravenous antibiotics. 5. Acute kidney injury. BUN and creatinine are still elevated. He received dialysis yesterday and 4 L of fluids were removed. Continue to monitor. I will continue following the recommendation of nephrology department. 6. Paroxysmal atrial fibrillation, stable. 7. Extensive right upper extremity deep vein thrombosis. This patient has been on a full dose of Lovenox but this was decreased because he started bleeding through his PICC line. We will monitor. 8. Thrombocytopenia, stable. 9. Right forearm wound, status post debridement. Continue with wound care. Surgery department is following. 10. Protein calorie malnutrition. Continue with the same management. He is tolerating tube feedings. 11. Status post left arthroplasty secondary to left hip dislocation, stable. 12. Transaminitis, probably related with medication. Continue to monitor. 13. Gastrointestinal prophylaxis. Continue with the same management. CRITICAL CARE TIME: 35 minutes. cc: Aleksandar Saldivar MD
--- NOTE | 2017-06-05 18:47 | PROGRESS NOTE ---
DATE: 06/05/2017 SUBJECTIVE: Mr. Escoto had his 1st treatment with SLED yesterday. He was subsequently extubated, but has required BiPAP. He is moving spontaneously, but he did not interact with me. OBJECTIVE: Vital Signs: Blood pressure 163/49, heart rate 63, respirations 24, afebrile. Intake 1.4 L. Output 4 L. General: No acute distress. Skin: Warm and dry. Conjunctivae are pink. Neck: Neck veins are not appreciated. Heart: Regular without gallops or rubs. Lungs: Have equal breath sounds. Coarse. A few scattered crackles. Abdomen: Soft, nontender. Bowel sounds are present. Extremities: Have 2+ edema. No clubbing or cyanosis. LABORATORY DATA: Sodium 134, potassium 4.1, chloride 98, bicarbonate 20, BUN 76, creatinine 2.2. IMPRESSION: Acute kidney injury. Urine output has continued to fall. We will plan to repeat dialysis tomorrow. Acid-base and electrolytes are acceptable today. No other changes. cc: Watson Kahn MD
[2017-06-06] MEDS: PEPCID IV SCH ×3 (00:30→23:42)
[2017-06-06] MEDS: SODIUM CHLORIDE 0.9% INJ SCH (00:30)
[2017-06-06] MEDS: MAXIPIME 2 GM/NS 2 GM/100 ML IVPB IV SCH ×2 (00:30→11:53)
[2017-06-06] MEDS: MORPHINE IV PRN ×3 (00:33→20:56)
[2017-06-06] MEDS: DUONEB (A & A) INH SCH ×6 (03:15→22:42)
[2017-06-06] MEDS: LOPRESSOR PO SCH ×4 (03:50→19:50)
[2017-06-06 04:25] LABS: ALLEN TEST YES; BE -2.7 mmoll (-3.0-3.0); BLOOD TYPE ARTERIAL; DRAW SITE R RADIAL; METHB 0.7 % (0.0-1.5); O2(CT) 10.2 mL/dL (15.0-23.0); PCO2(98.6) 45 mmHg (35-45); PO2(98.6) 109 mmHg (60-100); SAMPLE BLOOD; SAO2 99.7 % (95.0-100.0); THB 7.3 g/dL (11.5-17.4); pH(98.6) 7.32 (7.35-7.45)
[2017-06-06 04:26] LABS: MODALITY VENTILATOR
[2017-06-06 05:32] LABS: BASO% 0.1 % (0.0-0.8); EOS# 0.01 X1000 (0.0-0.7); EOS% 0.1 % (0.0-10.0); HEMATOCRIT 23.7 % (42.0-52.0); HEMOGLOBIN 7.6 g/dL (14.0-18.0); IMM GRAN# 0.16 X1000 (0.0-0.04); IMM GRAN% 0.9 % (0.0-0.5); LYMPH# 0.25 X1000 (1.2-3.4); LYMPH% 1.3 % (20.5-51.1); MANUAL DIFF NEEDED? YES; MCH 30.2 PG (27-31); MCHC 32.1 g/dL (33-37); MONO% 3.2 % (1.7-9.3); NEUT% 94.4 % (42.2-75.2); PLT 113 X1000 (130-400); RBC 2.52 XMIL (4.7-6.1)
[2017-06-06 06:11] LABS: ALBUMIN 2.8 g/dL (3.5-5.0); CALCIUM 8.5 mg/dL (8.8-10.2); POTASSIUM 4.8 mmol/L (3.5-5.1); TOTAL BILIRUBIN 0.51 mg/dL (0.20-1.00); TOTAL PROTEIN 6.1 g/dL (6.3-8.3)
--- NOTE | 2017-06-06 06:28 | PROGRESS NOTE ---
DATE: 06/06/2017 SUBJECTIVE: The patient was extubated yesterday. No major issues reported by the nursing staff. OBJECTIVE: Vital Signs: Patient is currently afebrile. His vital signs are stable. General Examination: No acute distress. Cardiovascular: Regular rate and rhythm. Lungs: Referred airway noises from the BiPAP machine. Abdomen: Soft, nontender, nondistended. Extremities: Right upper extremity with dressing still in place. Removed with the nursing staff. The area is overall improved. It still does have somewhat of a smell to it but there is not a significant amount of necrotic tissue or slough that needs to be debrided at this time. Laboratory: White blood cell count is 18, hematocrit is 23, platelet count 113,000. Remainder of labs reviewed. ASSESSMENT AND PLAN: A 76-year-old, male with multiple medical comorbidities with a chronic wound to his right upper extremity. 1. Chronic wound to his right upper extremity. At this time, I recommend continued Vashe and Santyl. We will continue current treatment. I will be intermittently checking on the patient. 2. Multiple medical comorbidities currently including acute respiratory failure and acute kidney injury. At this time, he is being managed by the specialists. We will defer to them. cc: Trev Boggs MD
[2017-06-06 06:42] LABS: BANDS 6 % (0-1); LYMPHS 4 % (21-51); MONO 4 % (1-9)
--- NOTE | 2017-06-06 07:09 | Diag Imaging Result Doc PS360 ---
EXAM: CHEST-PORTABLE HISTORY: respiratory failure TECHNIQUE: AP upright portable at 0505 COMMENT: There is some diminishment of alveolar opacity in the perihilar region of the right lower lobe since the previous study of 06/05/2017. Otherwise, there has been no significant change. The endotracheal tube is been removed. IMPRESSION: Slight improvement in pulmonary edema and/or pneumonia. Electronically signed by Tony Anne 06/06/2017 7:07 AM
[2017-06-06] MEDS: LOVENOX SUBQ SCH ×2 (07:20→17:14)
--- NOTE | 2017-06-06 08:11 | PROGRESS NOTE ---
DATE: 06/06/2017 SUBJECTIVE: He is on BiPAP. His eyes are open and he looks around but he does not fix on me or follow any commands. OBJECTIVE: Vital Signs: Blood pressure 189/56, heart rate 64, respirations 22, afebrile. Intake 1 L. Output 0. Physical Examination: General: No acute distress. Skin: Warm and dry. HEENT: Pupils are equal. Neck: Neck veins are not appreciated. Trachea is midline. Heart: Regular without gallops or murmurs. Lungs: Have equal breath sounds with scattered rhonchi. Some increased work of breathing. Abdomen: Soft, nontender. Bowel sounds are present. No masses or organomegaly. Extremities: Have 2+ edema. No clubbing or cyanosis. Laboratory Data: Sodium 136, potassium 4.8, chloride 100, bicarbonate 22, BUN 105, creatinine 2.9. IMPRESSION: 1. Acute kidney injury. No significant urine output. SLED today with a goal of 4 L using a 2 potassium bath and 27 bicarbonate. 2. Electrolytes are acceptable. 3. Acid base, in target. 4. Anemia, below target but stable. Does not necessarily require transfusion. cc: Watson Kahn MD
[2017-06-06] MEDS ORDERED: NS 2,000 ML ONE (08:22)
[2017-06-06] MEDS ORDERED: HEPARIN ONE (08:22)
[2017-06-06] MEDS: METANX PO SCH (08:32)
[2017-06-06] MEDS: CORDARONE PO SCH ×3 (08:32→20:12)
[2017-06-06] MEDS: SOLU-MEDROL IV SCH ×2 (08:32→20:51)
[2017-06-06] MEDS: MYCOSTATIN POWDER TOP SCH (08:33)
[2017-06-06] MEDS: SANTYL OINT TOP SCH (08:33)
--- NOTE | 2017-06-06 09:38 | PROGRESS NOTE ---
DATE: 06/06/2017 SUBJECTIVE: This patient is still in the ICU. Yesterday, he was extubated and he is on a BiPAP machine today. He opens his eyes spontaneously, and he is moving his head, but he is not moving the rest of the body for me. He is not following commands. He is not looking at me. I do not see any kind of reaction with pain stimulation. OBJECTIVE: Vital Signs: Temperature 97.6, pulse 61, respiratory rate 28, blood pressure 189/48. Oxygen saturation 99 on BiPAP. HEENT: Head normocephalic. No trauma. PERRLA. Neck: Supple. No JVD. No masses. Central trachea. Chest: Decreased breath sounds at the bases with crackles, mostly at the level of the right lung. Coarse breath sounds bilaterally. Abdomen: Positive bowel sounds. Soft, nontender, nondistended. Extremities: He has 2+ upper extremity edema with a PICC line on the left side. No edema at the level of the lower extremities. He has multiple hematoma at the level of upper extremity as well. He has a Vas-Cath on the right, at the level of the right thigh. He has a sacral ulcer that is covered. Also, he has a right forearm with an ulcer that apparently is chronic and surgery department is following. Neurological: The patient is alert, he opens his eyes spontaneously. He moves his head, but he is not moving the rest of the body, he is not following commands for me or looking at me when I call him. I do not see any reaction with pain stimulation. LABORATORY: WBC 18.5, hemoglobin 7.6, hematocrit 23.7, platelets 113. Sodium 136, potassium 4.8, chloride 100, bicarbonate 22, BUN 105, creatinine 2.9, glucose 136, calcium 8.5. ASSESSMENT AND PLAN: 1. Acute hypercapnic respiratory failure. This patient was extubated yesterday. Today he is on a BiPAP machine. Oxygen saturation stable. We will continue to monitor. Pulmonary department is on board. 2. Bilateral pleural effusion, larger on the right side. Status post thoracentesis. Chest x-ray done today showed a slight show and slight improvement in pulmonary edema and/or pneumonia. 3. Aspiration pneumonia secondary to Klebsiella, continue with IV antibiotics. Infectious Disease department is following this patient. 4. Urinary tract infection secondary to Morganella. Continue with IV antibiotics. 5. Acute kidney injury. Nephrology on board. He is getting dialysis. 6. Paroxysmal atrial fibrillation. Stable. 7. Extensive right upper extremity deep vein thrombosis. This patient has been on full dose on Lovenox, but this was decreased because he started bleeding through his PICC line and now through his Vas-Cath. Will monitor. 8. Thrombocytopenia, stable. 9. Right forearm wound, status post debridement. Continue with wound care. Surgery Department is following. 10. Protein calorie malnutrition. Continue with the same management. He is tolerating tube feedings. 11. Status post left arthroplasty secondary to left hip dislocation, stable. 12. Transaminitis. This is getting much better, that was probably secondary to medications. Continue to monitor. 13. Gastrointestinal prophylaxis. Continue with Pepcid twice a day. cc: Aleksandar Saldivar MD
--- NOTE | 2017-06-06 19:23 | PROGRESS NOTE ---
DATE: 06/06/2017 PRESENT ILLNESS: The patient is being treated for a new pneumonia caused by Enterobacter. Patient currently is on cefepime. The patient also has an immunoglobulin G deficiency. MEDICATIONS: This is day 12 of treatment with cefepime. He also has received 1 dose of IVIG. PHYSICAL EXAMINATION: Vital Signs: Temperature is 98.8 degrees, pulse 76, respirations 36, blood pressure 171/79. General: This is an ill-appearing elderly male. He is on a BiPAP mask at this time. Lungs: Bilateral rhonchi and rales. Cardiovascular: Heart rate is regular. Abdomen: Soft and nontender. Extremities: The patient's right hand wound is not purulent. The patient had has a PICC in his left arm. That site is not erythematous or swollen. Patient also has a catheter in his right groin the that is being used for dialysis. LAB AND X-RAY: Chest x-ray shows improvement in the bilateral infiltrate. CBC today shows a white count of 18,520, hemoglobin 7.6 and platelet count 113,000. Blood gases show a pH of 7.32, PO2 of 109, pCO2 of 45. The creatinine is 2.9. The GFR is 21. ALT is 58. ASSESSMENT AND PLAN: Patient has an Enterobacter pneumonia. Since this occurred while he was on cefepime I have discontinued cefepime and started the patient on Levaquin, also I have ordered another sputum culture. Measured the patient's immunoglobulin levels to see if there is still a deficiency. COMORBIDITIES: Include alcoholism, COPD, gastroesophageal reflux disease, congestive heart failure and IgG deficiency. cc: Thor Fields MD
[2017-06-06] MEDS: LEVAQUIN 500 MG/D5W 500 MG/100 ML IVPB IV SCH (19:50)
[2017-06-06] MEDS ORDERED: STERILE WATER INJ. INJ ONE (21:30)
[2017-06-06] MEDS ORDERED: CATHFLO IV ONE (21:30)
[2017-06-06] MEDS: DIPRIVAN 1% 1,000 MG/100 ML BOTTLE IV SCH ×2 (21:33→22:55)
--- NOTE | 2017-06-06 21:55 | Diag Imaging Result Doc PS360 ---
EXAM: CHEST-PORTABLE INDICATION: et tube placement TECHNIQUE: One view COMPARISON: 06/06/2017 FINDINGS: The newly placed ET tube projects over the trachea and above the sabi at about the T3 level. The NG tube and left PICC line are in stable positions. Bibasilar consolidations, worse on the left, are stable to marginally improved. There appears to be a small left pleural fluid collection that is stable. There is no evidence of pneumothorax. No new consolidations are appreciated. Cardiac silhouette is stable. IMPRESSION: 1.Interval placement of ET tube as described. 2.Stable to marginal improvement of bilateral lower lung zone infiltrates. Electronically signed by Shahbaz Taylor 06/06/2017 9:53 PM
[2017-06-06 22:10] LABS: ALLEN TEST YES; BE -7.2 mmoll (-3.0-3.0); BLOOD TYPE ARTERIAL; DRAW SITE L RADIAL; METHB 1.3 % (0.0-1.5); O2(CT) 11.2 mL/dL (15.0-23.0); PO2(98.6) 66 mmHg (60-100); SAMPLE BLOOD; SAO2 94.5 % (95.0-100.0); SRATE 14 BPM; THB 8.7 g/dL (11.5-17.4); TVOL 550 mL
[2017-06-06 22:11] LABS: MODALITY VENTILATOR
[2017-06-06 22:12] LABS: PCO2(98.6) 64 mmHg (35-45); pH(98.6) 7.14 (7.35-7.45)
[2017-06-07] MEDS: LOPRESSOR PO SCH ×4 (01:42→20:22)
[2017-06-07] MEDS: DUONEB (A & A) INH SCH ×5 (02:40→19:43)
[2017-06-07] MEDS: DIPRIVAN 1% 1,000 MG/100 ML BOTTLE IV SCH ×4 (03:32→16:12)
[2017-06-07 04:22] LABS: ALLEN TEST YES; BE -7.6 mmoll (-3.0-3.0); BLOOD TYPE ARTERIAL; DRAW SITE R RADIAL; METHB 1.5 % (0.0-1.5); O2(CT) 13.6 mL/dL (15.0-23.0); PCO2(98.6) 41 mmHg (35-45); PO2(98.6) 174 mmHg (60-100); SAMPLE BLOOD; SAO2 99.8 % (95.0-100.0); SRATE 20 BPM; THB 9.8 g/dL (11.5-17.4); TVOL 550 mL; pH(98.6) 7.27 (7.35-7.45)
[2017-06-07 04:23] LABS: MODALITY VENTILATOR
[2017-06-07] MEDS: NEO-SYNEPHRINE 50 MG in NS 250 ML IV SCH ×2 (04:24→20:23)
[2017-06-07 04:55] LABS: BASO% 0.1 % (0.0-0.8); EOS# 0.04 X1000 (0.0-0.7); EOS% 0.1 % (0.0-10.0); HEMATOCRIT 26.3 % (42.0-52.0); HEMOGLOBIN 8.1 g/dL (14.0-18.0); IMM GRAN# 0.58 X1000 (0.0-0.04); LYMPH# 0.78 X1000 (1.2-3.4); LYMPH% 2.7 % (20.5-51.1); MANUAL DIFF NEEDED? YES; MCH 29.9 PG (27-31); MCHC 30.8 g/dL (33-37); MONO# 1.04 X1000 (0.11-0.59); MONO% 3.7 % (1.7-9.3); MPV 12.2 FL (7.4-10.4); NEUT% 91.4 % (42.2-75.2); PLT 125 X1000 (130-400); RBC 2.71 XMIL (4.7-6.1)
[2017-06-07] MEDS: MORPHINE IV PRN (05:04)
[2017-06-07 05:18] LABS: BANDS 12 % (0-1); LYMPHS 8 % (21-51); MONO 4 % (1-9)
[2017-06-07 05:21] LABS: ALBUMIN 2.9 g/dL (3.5-5.0); CALCIUM 8.2 mg/dL (8.8-10.2); POTASSIUM 5.2 mmol/L (3.5-5.1); TOTAL BILIRUBIN 0.64 mg/dL (0.20-1.00); TOTAL PROTEIN 5.9 g/dL (6.3-8.3)
[2017-06-07] MEDS: LOVENOX SUBQ SCH ×2 (06:13→18:11)
--- NOTE | 2017-06-07 07:37 | Diag Imaging Result Doc PS360 ---
CHEST-PORTABLE - 06/07/2017 INDICATION: respiratory failure TECHNIQUE: COMPARISON: 06/06/2017 FINDINGS: Support lines and tubes are stable. Stable bibasilar infiltrates left greater than right. There may be effusions as well. Heart size is normal. Pulmonary vascularity is probably somewhat distended. IMPRESSION: No change from prior. Bibasilar infiltrates and/or effusions. Electronically signed by Parker Amador 06/07/2017 7:35 AM
[2017-06-07] MEDS: METANX PO SCH (08:27)
[2017-06-07] MEDS: CORDARONE PO SCH (08:27)
[2017-06-07] MEDS: SANTYL OINT TOP SCH (08:28)
[2017-06-07] MEDS: MYCOSTATIN POWDER TOP SCH (08:28)
[2017-06-07] MEDS: SOLU-MEDROL IV SCH (08:31)
[2017-06-07] MEDS ORDERED: HEPARIN ONE (08:38)
[2017-06-07] MEDS ORDERED: NS 2,000 ML ONE (08:38)
[2017-06-07] MEDS: PEPCID IV SCH (11:47)
--- NOTE | 2017-06-07 13:28 | PROGRESS NOTE ---
DATE: 06/07/2017 SUBJECTIVE: This patient was extubated yesterday and reintubated again secondary to acute hypercapnic respiratory failure. Also this patient is having diarrhea, the blood pressure was low and now he is on pressors. The WBC increased as well. OBJECTIVE: Vital Signs: Temperature 98.4 degrees, pulse 71, respiratory rate 20, blood pressure 134/35. Oxygen saturation 100% on mechanical ventilation 100% oxygen flow. HEENT: Head normocephalic. No trauma. PERRLA. Neck: Supple. No JVD. No masses. Central trachea. Chest: Decreased breath sounds at the bases with crackles, mostly at the level of the right lungs. Coarse breath sounds globally. Abdomen: Positive bowel sounds. Nontender, nondistended. Extremities: 2+ upper extremity edema. No edema at the level of the lower extremities. He has a Vas-Cath on the right thigh. Neurological examination: The patient is sedated and intubated. LABORATORY: WBC 28.4, hemoglobin 8.1, hematocrit 26.3, platelets 125. Sodium 137, potassium 5.3, chloride 102, bicarbonate 18. BUN 60, creatinine 2, glucose 101, calcium 8.2, albumin 2.9. ASSESSMENT AND PLAN: 1. Acute hypercapnic respiratory failure. This patient was extubated a couple days ago and yesterday he was re-intubated because of acute hypercapnic respiratory failure and increased secretions. At this moment, like I said he is on mechanical ventilation and Pulmonary Department is following this patient closely. 2. Bilateral pleural effusion larger on the right side, status post thoracentesis. Continue to monitor. 3. Aspiration pneumonia secondary to Klebsiella. Continue with intravenous antibiotics. Infectious Disease Department following this patient. 4. Urinary tract infection secondary to Morganella. Continue with intravenous antibiotics. 5. Acute kidney injury. Nephrology on board. He has been getting dialysis. His urine output is around 45 mL in 24 hours. 6. Paroxysmal atrial fibrillation, stable. 7. Extensive right upper extremity deep vein deep vein thrombosis. This patient has been on full dose of Lovenox, but this was decreased because he started bleeding through his PICC line and also his Vas-Cath. We will monitor. 8. Thrombocytopenia, stable. 9. Right forearm wound status post debridement. Continue with wound care. Surgery Department following. 10. Protein calorie malnutrition. Continue with the same management. He is on tube feedings. 11. Status post left arthroplasty secondary to left hip dislocation, stable. 12. Transaminitis. This is stable. Will monitor. 13. Gastrointestinal prophylaxis. Continue with the same management. cc: Aleksandar Saldivar MD
--- NOTE | 2017-06-07 14:57 | PROGRESS NOTE ---
DATE: 06/07/2017 TIME SEEN: 0740. SUBJECTIVE: Mr. Escoto is resting quietly in bed. He remains ventilator dependent with sedation. He does not open his eyes or follow commands. OBJECTIVE: His most recent vital signs: Temperature 97.9 degrees, blood pressure 118/37, heart rate 75, respirations 20. He is on 100% FiO2. Last recorded saturation 99%. He has had 1451 In, 4195 Out with 4 L on dialysis. LABORATORY DATA: Sodium 137, potassium 5.2, chloride 102, CO2 of 18. BUN 60, creatinine 2, glucose 101. Anion gap 17, calcium 8.2, albumin 2.9. White count 28.45. Hemoglobin 8.1, hematocrit 26.3 with a platelet count of 12.5. ABGs: pH 7.27, CO2 of 41, PO2 of 174, bicarb 19, lactate 0.80. Sputum culture has come back Gram-positive cocci. PHYSICAL EXAMINATION: General: This is a 76-year-old elderly male who is in no acute distress. Skin is warm and dry. HEENT: Normocephalic, atraumatic. Conjunctivae pale. He has ANTHONY. Mucous membranes are dry. Neck is supple. Trachea midline. No JVD. Cardiovascular: He has regular rate and rhythm. He is without murmur or gallop. Lungs: Scattered rhonchi bilaterally. He remains ventilator dependent. Equal excursion. Abdomen is soft, nontender. Positive bowel sounds. Patient has NG tube to Nepro tube feedings. Genitourinary: Patient has had some urine out to Huerta bag; minimal amount. Extremities: 2+ edema. No clubbing or cyanosis. Neurological: As mentioned above. ASSESSMENT AND PLAN: 1. Acute kidney injury. No significant urine output. We will plan for sustained low-efficiency dialysis today. We will place patient on a 4 K bath. He is to dialyze for 8 hours. We will attempt 4 L of ultrafiltration with a 27 bicarb. 2. Electrolytes. These remain acceptable. 3. Acid-base balance. This is stable. 4. Anemia. This is low but stable. I would to thank you for allowing us to follow with this patient. Seen, data reviewed, discussed with David Mendez on 06/07/17. I agree with the above assessment and plan of care. rg Dictated by MARGARITA Johnson for Watson Kahn MD cc: MARGARITA Johnson MD [facility]
[2017-06-07] MEDS: LEVAQUIN 500 MG/D5W 500 MG/100 ML IVPB IV SCH (18:11)
--- NOTE | 2017-06-07 19:29 | PROGRESS NOTE ---
DATE: 06/07/2017 PRESENT ILLNESS: The patient is being treated for an Enterobacter pneumonia. The patient also had a history of an immunoglobulin G deficiency. MEDICATIONS: This is day 1 of Levaquin. Previously the patient received 1 dose of IVIG. This is day 1 of treatment with Levaquin PHYSICAL EXAMINATION: Vital Signs: Temperature is 97.7 degrees, pulse 77, respirations 24, blood pressure 93/54. General: This is an ill-appearing elderly male. He is intubated and sedated. Lungs: Bilateral rhonchi. Cardiovascular: Heart rate is regular. Abdomen: Soft and nontender. Both of the IV site catheters sites are not erythematous or swollen. LAB AND X-RAY: The chest x-ray shows bibasilar infiltrates and effusions. Sputum and pleural fluid cultures are negative. Pleural fluid white count was 339, pleural fluid AFB and fungal smears are negative. Today the patient's CBC showed a white count of 28,450, hemoglobin 8.1 and platelet count 125,000. Arterial blood gases showed a pH of 7.27, a PO2 of 174 and a pCO2 of 41. The creatinine is 2, the GFR is 33. The IgG level has normalized, the IgG level is up to 907, the IgA level which was always normal still is at 247. ASSESSMENT AND PLAN: Patient has pneumonia for which he is being treated with Levaquin, this is day 1 of treatment. His immunoglobulin levels are no longer the low. COMORBIDITIES: Include alcoholism, COPD, gastroesophageal reflux disease, congestive heart failure but no longer does he have an IgG deficiency. cc: Thor Fields MD
[2017-06-08 00:25] VITALS: BP 82/12
--- NOTE | 2017-06-09 06:52 | DISCHARGE SUMMARY ---
ADMISSION DATE: 05/21/2017 DISCHARGE DATE: 06/07/2017 The patient on 06/07/2017 at 2121. PERTINENT PROCEDURES: 1. Hip x-ray showed superolateral dislocation of femoral component of the left total hip prosthesis from the acetabular component. 2. Head/cervical spine CT showed subcutaneous soft tissue swelling at the right anterior scalp. No evidence of intracranial injury. 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 No evidence of cervical spine fracture. 3. Echocardiogram showed an EF of 60% with no wall motion abnormalities. 4. Closed reduction of left hip with total hip arthroplasty performed by Dr. Perez. 5. Renal ultrasound showed a small right renal cyst with questionable mild cortical thickening on the right, small amount of ascites. 6. Abdominal ultrasound showed fluid on the right, believed to represent pleural effusion rather than small amount of ascites, mild splenomegaly, cholecystectomy, possible fatty infiltration of the liver. 7. I and D of subcutaneous tissue on the right forearm by Dr. Boggs. 8. Thoracentesis of a right hemothorax performed by Dr. Vivar and liberation from mechanical ventilation. 9. Ultrasound-guided right common femoral vein Vas-Cath placement by Dr. Boggs. DIAGNOSES: 1. Status post left hip arthroplasty secondary to left hip dislocation, stable. 2. Acute hypercapnic respiratory failure with one successful extubation, requiring reintubation. Patient on 06/07/2017 at 2121. 3. Bilateral pleural effusions, larger on the right side, status post thoracentesis. 4. Aspiration pneumonia secondary to Klebsiella. 5. Urinary tract infection secondary to Morganella. 6. Acute kidney injury. The patient was receiving sustained low-efficiency dialysis. 7. Paroxysmal atrial fibrillation, stable. 8. Extensive right upper extremity deep venous thrombosis. The patient was on full dose Lovenox but was decreased because he started having bleeding around the peripherally inserted central catheter line and Vas-Cath. 9. Thrombocytopenia, stable. 10. Right forearm wound, status post debridement by Dr. Boggs. 11. Protein calorie malnutrition. 12. Transaminitis, stable. HOSPITAL COURSE: Mr. Escoto is a 76-year-old male who presented to the ED after standing up off the toilet, he felt his left hip pop as if it had come out of place. He was unable to stand or move. He was like that for 10-12 hours on the floor. Eventually, he was brought into the ED where he had a closed reduction of the left total hip arthroplasty by Dr. Perez. Overnight, the patient had worsening level of consciousness. He had a decreased PO2. Pulmonology was consulted. The patient was electively intubated with sedation. The patient remained in the ICU on the ventilator for several days. He had an acute kidney injury secondary to outlet obstruction. He was monitored by nephrology for several days. He was then found to have an acute deep vein thrombosis in the right subclavian and axillary veins, and acute superficial thrombosis in the right basilic and cephalic veins. He was started on full dose Lovenox. Dr. Boggs was consulted for chronic wound to the patient's right forearm. He did a bedside I and D debridement, and continued wound care. To spiral tube winder helper in the patient getting off the ventilator, Dr. Vivar performed a thoracentesis of a right hemothorax. Dr. Boggs placed a right common femoral vein Vas-Cath for dialysis. He was initiated on SLED with a goal to improve his uremia. Dr. Fields was also on board to help with treatment for Klebsiella pneumoniae and a Morganella UTI. The patient did show marked improvement in the large right pleural effusion following Dr. Vivar's thoracentesis. The patient was eventually weaned off all sedation, although he remained on mechanical ventilation. The patient was successfully extubated on 06/07/2017 and was placed on BiPAP. He would spontaneously open his eyes and move his head but not following commands or making any purposeful eye contact. Again, the patient developed acute hypercapnic respiratory failure. He was reintubated again a 2nd time. Dr. Mi spoke with the family. They made the patient a DNR level 1. The patient passed on 06/07/2017 at 2121. Dictated by MARGARITA Fernandez for Aleksandar Saldivar MD cc: MD Irlanda Marie MD
== END 2017-06-07 21:21 | disposition expired ==
LOC: ED 17:03 → SUATTDRO 22:00 → 4N 22:00 → ICU 23:17
PROVIDERS: ATTEND Internal Medicine